=== PATIENT | female | born 1965 | race Caucasian/White ===

== ENCOUNTER 2023-03-04 14:22 | Inpatient (IN) | payer MEDICARE, SELFPAY ==
[2023-03-04] VITALS (15 sets, daily range): BP systolic 119–167; BP diastolic 72–104; PULSE 88–99; RESP 15–31; TEMP 36.8–36.9; O2SAT 90–98; BMI 40.8; BMI 43.2
--- NOTE | 2023-03-04 14:29 | XR_ITS ---
WS: [id number] Portable AP upright chest, 03/04/2023 Clinical Data: sob Comparison: None. Findings: No nodules or masses are seen. There is a patchy opacity in the right lower lobe which is probably an effusion along with some atelectasis and possible minimal pneumonia. The left lung is david ar. The heart is normal. The pulmonary vascularity is not increased. No pneumothorax is seen. Monitor leads are on the chest wall. The aortic arch and descending thoracic aorta show tortuosity. Impression: 1. Right lower lobe opacity which probably represents atelectasis, effusion and possible pneumonia. 2. Atherosclerosis.
--- NOTE | 2023-03-04 14:30 | ECG_ITS ---
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 Measurements Intervals [place] Rate: 94 P: 22 TX: 140 QRS: -7 QRSD: 105 T: 115 QT: 356 QTc: 447 Interpretive Statements SINUS RHYTHM ANTERIOR MYOCARDIAL INFARCTION , PROBABLY OLD [40+ ms Q WAVE AND/OR ST/T ABNORMALITY IN V3/V4] MODERATE T-WAVE ABNORMALITY, CONSIDER LATERAL ISCHEMIA [-0.1+ mV T-WAVE IN I/aVL/V5/V6] No previous ECG available for comparison Electronically Signed On 03-04-2023 18:33:22 HATCH BOSS by Scott Turner M.D. [id number]
--- NOTE | 2023-03-04 14:37 | ED_ITS ---
HPI - SOB/Dyspnea 2 General: Chief Complaint: Shortness of Breath/Dyspnea Stated Complaint: SOB, High Trop Time Seen by Provider: 03/04/23 14:25 Source: EMS Mode of arrival: EMS Limitations: no limitations History of Present Illness: HPI Narrative: 57-year-old female with a history of letty francis states she has been having increasing shortness of breath over the last 2 weeks. She states she is also had a 20 pound weight gain no known history of CHF. She denies any chest pain denies any fevers denies any worsening proving factors. Patient also states she has had some swelling to her left lower extremity. 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 Associated symptoms: Deny abdominal pain, chest pain, fever(s), nausea or vomiting Review of Systems 2 Const: Reports: change in weight; Denies: fever(s), chills, body aches or change in appetite Eyes: Denies: blurry vision or eye discomfort ENMT: Denies: throat pain or dental pain Card: Denies: chest pain Resp: Reports: dyspnea GI: Denies: abdominal pain, nausea, vomiting or diarrhea Musc: Reports: extremity swelling; Denies: neck pain or back pain Skin/Breast: Denies: rash Neuro: Denies: headache(s) Physical Exam 2 Const: COMMON NORMALS: patient oriented x3 HENMT: COMMON NORMALS: normocephalic and atraumatic HEAD & SCALP: n ormocephalic and atraumatic Eye: COMMON NORMALS: Equal, round and reactive pupils present and EOMs intact bilaterally PUPIL: Yes Equal, round and reactive pupils present Neck/C-Spine: COMMON NORMALS: full ROM and supple Chest: COMMONS NORMALS: normal inspection of the chest and normal palpation of entire chest wall Resp: COMMON NORMALS: normal respiratory effort, No retractions, No use of accessory muscles and clear to auscultation bilaterally AUSCULTATION: clear to auscultation bilaterally Cardio: COMMON NORMALS: regular rate, regular rhythm and No murmurs present (Cardio) RATE: regular rate RHYTHM: regular rhythm GI: COMMON NORMALS: Normal to inspection, nondistended, normoactive bowel sounds present, Soft to palpation, non-tender and no masses PALPATION: Yes Soft to palpation Extremity: COMMON NORMALS: full ROM NARRATIVE EXTREMITY EXAM: Swelling noted to left lower extremity Neuro: COMMON NORMALS: patient oriented x3, moves all extremities and no focal motor deficits Psych: COMMON NORMALS: mental status grossly normal, Normal thought process present and cooperative THOUGHT PROCESS: Normal thought process present Skin: COMMON NORMALS: no rashes or lesions noted and no wounds GENERAL SKIN EXAM: no rashes or lesions noted Course 2 Vital Signs: Vital signs: Vital Signs Temperature 98.3 F 03/04/23 14:27 Pulse Rate 89 03/04/23 16:16 Respiratory Rate 20 H 03/04/23 16:16 Blood Pressure 148/88 03/04/23 16:16 Pulse Oximetry 95 03/04/23 16:16 Oxygen Delivery Me thod Nasal Cannula 03/04/23 16:16 Oxygen Flow Rate 2 03/04/23 16:16 MDM - SOB/Dyspnea Medical Decision Making Patient presents here with shortness of breath likely new onset CHF she has had leg swelling along with weight gain her BNP here was elevated she had elevated troponin as well do not have a baseline that could be chronic she is not having any chest pain here we will trend her troponin will give her Lasix spoke to hospitalist will admit. Medical Records I reviewed the patient's medical records. Lab Data I reviewed the patient's lab results. 03/04/23 14:54 03/04/23 14:54 Labs/Radiology: Laboratory Results WBC 8.90 10^3/uL (3.29-11.43) 03/04/23 14:54 RBC 4.22 10^6/uL (3.85-5.65) 03/04/23 14:54 Hgb 12.10 g/dL (11.27-16.99) 03/04/23 14:54 Hct 39.1 % (36-47) 03/04/23 14:54 MCV 92.7 fl (85-98) 03/04/23 14:54 MCH 28.7 pg (27-33) 03/04/23 14:54 MCHC 30.9 g/dL (30-55) 03/04/23 14:54 RDW 15.8 % (12.1-15.1) H 03/04/23 14:54 Plt Count 226 10^3/cmm (157-399) 03/04/23 14:54 MPV 10.2 fL (7.4-10.4) 03/04/23 14:54 Neut % (Auto) 65.0 % 03/04/23 14:54 Lymph % (Auto) 24.8 % 03/04/23 14:54 [place] % (Auto) 5.5 % 03/04/23 14:54 Eos % (Auto) 3.4 % 03/04/23 14:54 Baso % (Auto) 0.4 % 03/04/23 14:54 Neut # (Auto) 5.78 10^3/uL (1.8-7.7) 03/04/23 14:54 Lymph # (Auto) 2.2 10^3/uL (0.8-4.8) 03/04/23 14:54 [place] # (Auto) 0.5 10^3/uL (0.2-0.9) 03/04/23 14:54 Eos # (Auto) 0.3 10^3/uL (0.0-0.8) 03/04/23 14:54 Baso # (Auto) 0.0 10^3/uL (0.0-0.1) 03/04/23 14:54 Nucleated RBC % (auto) 0 % 03/04/23 14:54 Nucleated RBCs # 0.0 /100WBC 03/04/23 14:54 PT 14.30 SECONDS (12.1-14.9) 03/04/23 14:54 INR 1.08 (0.8-1.2) 03/04/23 14:54 Sodium 138 mmol/L (136-145) 03/04/23 14:54 Potassium 4.6 mmol/L (3.5-5.1) 03/04/23 14:54 Chloride 103 mmol/L (98-107) 03/04/23 14:54 Carbon Dioxide 26 mmol/L (22-29) 03/04/23 14:54 Anion Gap 13.6 (5-19) 03/04/23 14:54 BUN 27 mg/dL (6-20) H 03/04/23 14:54 Creatinine 1.1 mg/dL (0.5-0.9) H 03/04/23 14:54 GFR Calculation 51.2 mL/min (90-130) L 03/04/23 14:54 Glucose 187 mg/dL (65-115) H 03/04/23 14:54 Calculated Osmolality 296 mOsm/kg (285-295) H 03/04/23 14:54 Calcium 8.7 mg/dL (8.5-10.5) 03/04/23 14:54 Total Bilirubin 0.2 mg/dL (0.15-1.2) 03/04/23 14:54 AST 12 U/L (0-32) 03/04/23 14:54 ALT < 5 U/L (0-33) 03/04/23 14:54 Alkaline Phosphatase 141 U/L (35-105) H 03/04/23 14:54 Troponin T Baseline 164 ng/L (0-10) H* 03/04/23 14:54 NT-Pro-B Natriuret Pep 6093 pg/mL (0-125) H 03/04/23 14:54 Total Protein 6.8 g/dL (6.6-8.7) 03/04/23 14:54 Albumin 3.2 g/dL (3.5-5.2) L 03/04/23 14:54 Globulin 3.6 g/dL (1.3-4.6) 03/04/23 14:54 All radiology interpretation(s) finalized by discharge EKG Data EKG 1: I personally reviewed and interpreted this EKG as follows: EKG Interpretation Date: 03/04/23 EKG interpretation time: 14:45 Interpretation: nsr hr [address] elevation qrs 105 qtc 408 Discharge Plan Discharge Patient Disposition: Admitted As Inpatient Clinical Impression: Acute respiratory failure with hypoxia, CHF (congestive heart failure) Condition: Stable Prescriptions: No Action buspirone 5 mg tablet 5 mg PO BID gabapentin 600 mg tablet 1,800 mg PO BID citalopram 40 mg tablet 40 mg PO DAILY metformin 1,000 mg tablet 1,000 mg PO BID nitroglycerin 0.4 mg tablet, sublingual See Rx Instructions .ROUTE .COMPLEX Rx Instructions: GIVE 0.4MG SUBLINGUALLY EVERY 5 MINUTES NEEDED FOR CHEST PAIN. DO NOT GIVE MORE THAN 3 TIMES PER EPISODE. pravastatin 20 mg tablet 20 mg PO BEDTIME cyclobenzaprine 5 mg tablet 5 mg PO TID PRN (Reason: Spasms) Referrals: Diaz Barragan MD [Physician] - Coding Level of Care Code ED Mangle Press Catcher for g Jerrod
[2023-03-04 15:11] LABS: Basophils % 0.4 %; Eosinophils # 0.3 10^3/uL (0.0-0.8); Eosinophils % 3.4 %; Hematocrit 39.1 % (36-47); Lymphocytes # 2.2 10^3/uL (0.8-4.8); Lymphocytes % 24.8 %; Mean Corpuscular HGB Conc 30.9 g/dL (30-55); Mean Corpuscular Hemoglobin 28.7 pg (27-33); Mean Corpuscular Volume 92.7 fl (85-98); Mean Platelet Volume 10.2 fL (7.4-10.4); Monocytes # 0.5 10^3/uL (0.2-0.9); Monocytes % 5.5 %; Neutrophils # 5.78 10^3/uL (1.8-7.7); Nucleated Red Blood Cells % 0 %; Platelet Count 226 10^3/cmm (157-399); Red Blood Count 4.22 10^6/uL (3.85-5.65); Red Cell Distribution Width 15.8 % (12.1-15.1)
[2023-03-04 15:21] LABS: INR 1.08 (0.8-1.2)
[2023-03-04 15:37] LABS: Alanine Aminotransferase < 5 U/L (0-33); Albumin Level 3.2 g/dL (3.5-5.2); Alkaline Phosphatase 141 U/L (35-105); Anion Gap 13.6 (5-19); Aspartate Amino Transferase 12 U/L (0-32); Blood Urea Nitrogen 27 mg/dL (6-20); Calcium 8.7 mg/dL (8.5-10.5); Carbon Dioxide 26 mmol/L (22-29); Chloride 103 mmol/L (98-107); Globulin 3.6 g/dL (1.3-4.6); Glomerular Filtration Rate 51.2 mL/min (90-130); Glucose 187 mg/dL (65-115); NT Pro B Type Natriuretic Pept 6093 pg/mL (0-125); Osmolality Calculated 296 mOsm/kg (285-295); Potassium 4.6 mmol/L (3.5-5.1); Sodium 138 mmol/L (136-145); Total Bilirubin 0.2 mg/dL (0.15-1.2); Total Protein 6.8 g/dL (6.6-8.7)
[2023-03-04 15:38] LABS: Troponin(5th) Baseline 164 ng/L (0-10)
--- NOTE | 2023-03-04 15:53 | ECG_ITS ---
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 Measurements Intervals [place] Rate: 95 P: 7 NV: 135 QRS: -4 QRSD: 105 T: 91 QT: 370 QTc: 467 Interpretive Statements SINUS RHYTHM ANTERIOR MYOCARDIAL INFARCTION , PROBABLY OLD [40+ ms Q WAVE AND/OR ST/T ABNORMALITY IN V3/V4] Compared to ECG 03/04/2023 14:45:18 T-wave abnormality no longer present Possible ischemia no longer present Myocardial infarct finding still present Electronically Signed On 03-04-2023 18:34:30 ACCOUNTING PROFESSIONAL by Scott Turner M.D. [id number]
[2023-03-04] MEDS: FUROsemide 10 mg/mL SDV 10mL 60 MG IVP (16:20)
--- NOTE | 2023-03-04 17:18 | P.HP_ITS ---
Providers/Chief Complaint 2 Admitting Physician: Bryan Loco MD Primary Care Provider: Norman Santizo Chief Complaint: SOB, High Trop History of Present Illness Laurel Michael is a 57 year old female with a past medical history of insulin- dependent type 2 diabetes mellitus, peripheral vascular disease, status post intervention by Dr. stokes in 2018, active smoker, right below-knee amputation, left transmetatarsal amputation, who presents [facility] due to chest, discomfort, shortness of breath, left lower extremity swelling. Patient tells me that for the last few days she has been less ambulatory, she has been feeling increasingly short of breath she cannot sleep in bed, she has to sleep in her wheelchair due to orthopnea and paroxysmal nocturnal dyspnea, she is also developed left leg swelling, she has had calf tenderness, she does report that she developed blisters on her left lower extremities that are fluid-filled blisters that tend to rupture, she feels short of breath at rest now, currently she is on 2 L she denies using oxygen at home she is a smoker, no history of COPD, she does report anterior chest discomfort she has had 3 episodes of chest pain this week, she tells me that it is like a pressure-like sensation in the anterior chest, no hemoptysis, no recent travel, no recent surgeries, Review of Systems 2 Const: Denies: fever(s) Card: Reports: chest pain Resp: Reports: dyspnea; Denies: non-productive cough GI: Reports: abdominal pain : Denies: flank pain Neuro: Denies: headache(s) Medications/Allergies Home Medications Medication Instructions Recorded Confirmed Last Taken Type buspirone 5 mg tablet 5 mg PO BID 03/04/23 03/04/23 03/03/23 History citalopram 40 mg tablet 40 mg PO DAILY 03/04/23 03/04/23 03/03/23 History cyclobenzaprine 5 mg tablet 5 mg PO TID PRN Spasms 03/04/23 03/04/23 Unknown History gabapentin 600 mg tablet 1,800 mg PO BID 03/04/23 03/04/23 03/03/23 History metformin 1,000 mg tablet 1,000 mg PO BID 03/04/23 03/04/23 03/03/23 History nitroglycerin 0.4 mg sublingual See Rx Instructions .Route .COMPLEX 03/04/23 03/04/23 Unknown History tablet pravastatin 20 mg tablet 20 mg PO BEDTIME 03/04/23 03/04/23 03/03/23 History Allergies Allergy/AdvReac Type Severity Reaction Status Date / Time adhesive Allergy ALGY-Rash Verified 03/04/23 14:36 Sulfa (Sulfonamide Allergy ALGY-Anaphy Verified 03/04/23 14:36 Antibiotics) laxis PFSH Acute 2 PFSH: Medical History (Updated 03/04/23 @ 17:32 by Bryan Loco MD) Peripheral vascular disease Amputation above knee Above knee amputation of right lower extremity History of right above knee amputation Type 2 diabetes mellitus Surgical History (Updated 03/04/23 @ 17:21 by Bryan Loco MD) History of amputation Family History (Updated 03/04/23 @ 17:21 by Bryan Loco MD) Father CAD (coronary artery disease) Cardiomyopathy Social History (Updated 03/04/23 @ 17:21 by Bryan Loco MD) Smoking and tobacco/nicotine status: current some day tobacco/nicotine user Alcohol intake: never Substance/Drug Use: never Vitals/I&O/Wt Last Vital Signs Temp 98.3 F 03/04/23 14:27 Pulse 96 03/04/23 17:05 Resp 23 H 03/04/23 17:05 BP 167/87 03/04/23 17:05 Pulse Ox 96 03/04/23 17:05 O2 Del Method Nasal Cannula 03/04/23 17:05 O2 Flow Rate 2 03/04/23 17:05 Weight last 48 hrs Weight 114.759 kg Physical Exam 2 Const: COMMON NORMALS: no acute distress and patient oriented x3 HENMT: COMMON NORMALS: normocephalic HEAD & SCALP: normocephalic Eye: COMMON NORMALS: Equal, round and reactive pupils present and EOMs intact bilaterally Neck/C-Spine: COMMON NORMALS: no JVD Lymph: LYMPHATIC: no lymphadenopathy noted Resp: COMMON NORMALS: normal respiratory effort, No retractions and No use of accessory muscles AUSCULTATION: crackles and rales Cardio: COMMON NORMALS: regular rate, regular rhythm, S1 normal heart sound present and S2 normal heart sound present RATE: regular rate RHYTHM: r egular rhythm HEART SOUNDS: S1 normal heart sound present and S2 normal heart sound present GI: COMMON NORMALS: Normal to inspection, nondistended, normoactive bowel sounds present, Soft to palpation and non-tender Extremity: NARRATIVE EXTREMITY EXAM: Right above-knee amputation, ? Left transmetatarsal amputation, ? Left calf erythematous, swollen, 1+ pitting edema Neuro: COMMON NORMALS: patient oriented x3, CN's II-XII intact bilaterally, moves all extremities and no focal motor deficits Psych: COMMON NORMALS: mental status grossly normal Data 03/04/23 14:54 03/04/23 14:54 A&P Assessment and plan (1) Acute hypoxemic respiratory failure: (2) NSTEMI (non-ST elevated myocardial infarction): (3) Systolic CHF: (4) Pleural effusion, right: (5) Left leg swelling: (6) Chest pain: (7) Obesity: Plan Acute hypoxic respiratory failure ? Likely secondary to systolic CHF, ? Cannot order CT angiogram of the chest to rule out pulmonary embolism, as patient cannot lie flat, D-dimer ordered, venous ultrasound ordered ? Plan ? Fluid restrictions of 1000 cc, ? Place Zacarias catheter, Monitor urine output, ? Lasix 40 IV twice daily, ? On heparin drip, ? Pro-Brian, CRP, respiratory viral panel, ordered ABG, sputum cultures, blood cultures NSTEMI, with complaints of chest pain ? Cardiac risk factors include complaints of chest discomfort, ? Peripheral vascular disease, ? Poorly controlled type 2 diabetes mellitus -Concerns for type I NSTEMI versus type II ? Plan ? Serial EKGs, start troponins, telemetry monitoring, ? Aspirin, ? Statin?beta-crow, ? Heparin drip?cardiology consulted, ? Cardiac echo Systolic CHF ? As above, next Right pleural effusion, ? Will consider ultrasound thoracocentesis, Left leg swelling, ? Multifactorial from CHF, concern for DVT, ? Ultrasound for DVT Type 2 diabetes mellitus, low-dose sliding scale, ? Right below-knee amputation, left TMA Full code chronic/heparin drip for DVT prophylaxis Attestations 2 Medical Necessity Statement*: Patient requires hospitalization, inpatient, greater than 2 midnights, for NSTEMI, systolic CHF exacerbation, acute hypoxic respiratory failure, right pleural effusion, Diagnoses Acute hypoxemic respiratory failure J96.01 NSTEMI (non-ST elevated myocardial infarction) I21.4 Systolic CHF I50.20 Pleural effusion, right J90 Left leg swelling M79.89 Chest pain R07.9 Obesity E66.9
--- NOTE | 2023-03-04 17:18 | USCV_ITS ---
Laurel Michael Age: 57 Gender: F : 1965 Exam Date: 03/04/2023 21:15 Ordering Phys: Bryan Loco MD Technologist: RUTH [place]am [place] [facility] [place]ication: profoundly erythematous and edematous LLE. Patient is s/p RIGHT AKA. HISTORY: profoundly erythematous and edematous LLE. Patient is s/p RIGHT AKA. PROCEDURES: Venous duplex imaging was performed in only the left lower extremity. The following venous structures were evaluated: common femoral vein, profunda vein, proximal portion of the greater saphenous vein, superficial femoral vein, and the popliteal vein. In addition, the posterior tibial veins were evaluated. Serial compression, augmentation maneuvers, and spectral Doppler flow evaluation were performed, which were normal. FINDINGS: Normal 2-D Doppler and augmentation and compressibility throughout the lower extremity venous structures. Additional imaging through the proximal calf veins also reveals no thrombus. Limited evaluation of the greater saphenous vein is patent with no thrombus. CONCLUSIONS No DVT left lower extremity. There is subcutaneous left lower extremity edema noted. Dr. Kait Strickland DO (Electronically Signed) Final Date: 05 March 2023 07:58 S
[2023-03-04 17:43] LABS: ABG PCO2 51.1 mmHg (35-45); ABG PH Result 7.37 (7.35-7.45); Arterial Blood Gas Hematocrit 38.4 % (37-47); Base Excess ABG 3.4 mmol/L (-2.0-2.0); Blood Gas Allen Test Pos; Blood Gas Operator Identificat CAK; Blood Gas Sample Site Brachial, right; Blood Gas Sample Type Arterial; HCO3 ABG 29.6 mmol/L (22-26); Oxygen Device NC; PO2 ABG 86.9 mmHg (80.0-100.0); PO2 FiO2 Ratio Arterial Blood 0
[2023-03-04 17:51] LABS: D Dimer 1.78 ug/mLFEU (0-0.59)
[2023-03-04 17:56] LABS: Lactic Sepsis W/Reflex 1.7 mmol/L (0.5-2.2)
[2023-03-04 17:58] LABS: Troponin 5 2HR Delta 1.4 ABS# (0-10)
--- NOTE | 2023-03-04 18:00 | P.CONIM_ITS ---
Providers/Reason For Consult 2 Consulting Physician/Specialty*: SARWAT Echevarria MD/cardiology Reason for Consult*: Patient with elevated troponin I and congestive heart failure Requesting Physician: Dr. Loco Attending Physician: Bryan Loco MD Primary Care Provider: Norman Santizo History of Present Illness History of Present Illness Laurel Michael is a 57 year old female with a history of longstanding diabetes, hypertension and dyslipidemia he is presenting with progressive shortness of breath over the last 1 week. She was found to have elevated troponin T and BNP. Cardiology consult is requested for further cardiac evaluation recommendations This patient apparently has been in her baseline state of health up until a week ago when she started having tight feeling in the chest and shortness of breath. The symptoms have been progressively getting worse. She has no fever, chills or cough. She was finding it difficult to lie flat in the bed. She may have gained around 40 pounds over the last 1 month. She been is noticing swelling of the left lower extremity for the last couple of weeks. She also been noticing blisters with some weeping in the left leg. Patient has a history of distal aortic occlusion, status post stent placement in [address] Webster in [place]. She has a history of uncontrolled diabetes with a diabetic neuropathy. She had a transmetatarsal amputation of the left foot 4 years ago in [place]. She had a bony amputation of the right leg in August of last year in [place] for diabetic complication? Osteomyelitis. The details of these are not available since most of these interventions were done in [facility]. Patient never had any chest pain or cardiac complications. Whether she had a coronary angiogram or not normal at this point. She has abdominal aortogram with runoff by Dr. Atkinson in 2019. Details are as mentioned below. Subsequent to this, she was referred for possible aorto iliac bypass surgery to Dr. Webster. Performed the percutaneous intervention, as per the patient. The shortness of breath has been gradually getting worse. She was finding it difficult to move around and also had difficulty lying in bed. No abdominal pain or dysuria. She was developing some abdominal wall edema and blisters in the left lower extremity. No fever or chills. Patient has a history of smoking abuse, 1 pack a day for more than 20 years. For the last 5 years or so, she been cutting back to half pack a day. No alcohol abuse. Her father had congestive heart failure in his 60s. No other relevant family history. Review of Systems 2 Narrative: CONSTITUTIONAL: No fever or chills. [] EYES: No blurring of vision or other visual disturbances lately. [] ENT: No hoarseness of voice, auditory disturbances or sore throat. [] CARDIOVASCULAR: As mentioned above. [] RESPIRATORY: Shortness of breath as mentioned above GASTROINTESTINAL: No hematemesis or melena. [] GENITOURINARY: No dysuria or hematuria. [] INTEGUMENTARY: No skin rashes or history of skin cancer. [] NEURO: No transient ischemic attacks or amaurosis. [] PSYCHIATRIC: No history of psychosis or major depression. [] HEMATOLOGIC: No bleeding disorders or significant anemia. [] ENDOCRINE: No history of polyuria or polydipsia. [] MUSCULOSKELETAL: No recent joint pain or swelling. [] ALLERGY/IMMUNOLOGY: As mentioned above. [] Medications/Allergies Home Medications Medication Instructions Recorded Confirmed Last Taken Type buspirone 5 mg tablet 5 mg PO BID 03/04/23 03/04/23 03/03/23 History citalopram 40 mg tablet 40 mg PO DAILY 03/04/23 03/04/23 03/03/23 History cyclobenzaprine 5 mg tablet 5 mg PO TID PRN Spasms 03/04/23 03/04/23 Unknown History gabapentin 600 mg tablet 1,800 mg PO BID 03/04/23 03/04/23 03/03/23 History metformin 1,000 mg tablet 1,000 mg PO BID 03/04/23 03/04/23 03/03/23 History nitroglycerin 0.4 mg sublingual See Rx Instructions .Route .COMPLEX 03/04/23 03/04/23 Unknown History tablet pravastatin 20 mg tablet 20 mg PO BEDTIME 03/04/23 03/04/23 03/03/23 History Allergies Allergy/AdvReac Type Severity Reaction Status Date / Time adhesive Allergy ALGY-Rash Verified 03/04/23 14:36 Sulfa (Sulfonamide Allergy ALGY-Anaphy Verified 03/04/23 14:36 Antibiotics) laxis PFSH Acute 2 PFSH: Medical History (Updated 03/04/23 @ 18:35 by Oscar Echevarria MD) Peripheral vascular disease Amputation above knee Above knee amputation of right lower extremity History of right above knee amputation Type 2 diabetes mellitus Surgical History (Updated 03/04/23 @ 17:21 by Bryan Loco MD) History of amputation Family History (Updated 03/04/23 @ 17:21 by Bryan Loco MD) Father CAD (coronary artery disease) Cardiomyopathy Social History (Updated 03/04/23 @ 17:21 by Bryan Loco MD) Smoking and tobacco/nicotine status: current some day tobacco/nicotine user Alcohol intake: never Substance/Drug Use: never Vitals/I&O/Wt Last Vital Signs Temp 98.3 F 03/04/23 14:27 Pulse 94 03/04/23 17:36 Resp 20 H 03/04/23 17:36 BP 149/93 03/04/23 17:36 Pulse Ox 94 03/04/23 17:36 O2 Del Method Nasal Cannula 03/04/23 17:36 O2 Flow Rate 2 03/04/23 17:36 Weight last 48 hrs Weight 253 lb Physical Exam 2 Narrative: GENERAL: The patient is alert and oriented times three. Not in any acute distress. Morbidly obese NECK: Trachea appears to be central. No masses noted. No JVD or thyromegaly appreciated. RESPIRATORY: Chest is symmetrical. No intercostals muscle retraction or any accessory muscle activation. There is no chest wall tenderness. Breath sounds are heard bilaterally. Diminished intensity of breath on the left base. No rales or rhonchi heard. No evidence of any consolidation. BREASTS: Deferred. HEART: The heart sounds are normal. No S3 or S4. Short systolic murmur in the lower sternal border. No diastolic murmurs no pericardial rub ABDOMEN: No vessel pulsations or distention. No tenderness. No organomegaly appreciated. Bowel sounds are normally heard. : Deferred. RECTAL: Deferred. LYMPHATIC: No lymphadenopathy noted in the neck. EXTREMITIES: Above-knee amputation on the right side. Transmetatarsal amputation on the left side. There is 2+ edema of the left lower extremity. He will discuss superficial skin lesions and some weeping ulcers which are bandaged. Has some diffuse erythema of the left lower extremity. MUSCULOSKELETAL: No acute joint deformities or swelling SKIN: There are no significant rashes or ecchymosis NEUROPSYCHIATRIC: The patient is alert and oriented x3. Appears to be in a good mood. No tremors or rigidity noted. Data 03/04/23 14:54 03/04/23 14:54 Other Labs: Laboratory Last Values WBC 8.90 10^3/uL (3.29-11.43) 03/04/23 14:54 RBC 4.22 10^6/uL (3.85-5.65) 03/04/23 14:54 Hgb 12.10 g/dL (11.27-16.99) 03/04/23 14:54 Hct 39.1 % (36-47) 03/04/23 14:54 MCV 92.7 fl (85-98) 03/04/23 14:54 MCH 28.7 pg (27-33) 03/04/23 14:54 MCHC 30.9 g/dL (30-55) 03/04/23 14:54 RDW 15.8 % (12.1-15.1) H 03/04/23 14:54 Plt Count 226 10^3/cmm (157-399) 03/04/23 14:54 MPV 10.2 fL (7.4-10.4) 03/04/23 14:54 Neut % (Auto) 65.0 % 03/04/23 14:54 Lymph % (Auto) 24.8 % 03/04/23 14:54 Blanco % (Auto) 5.5 % 03/04/23 14:54 Eos % (Auto) 3.4 % 03/04/23 14:54 Baso % (Auto) 0.4 % 03/04/23 14:54 Neut # (Auto) 5.78 10^3/uL (1.8-7.7) 03/04/23 14:54 Lymph # (Auto) 2.2 10^3/uL (0.8-4.8) 03/04/23 14:54 Blanco # (Auto) 0.5 10^3/uL (0.2-0.9) 03/04/23 14:54 Eos # (Auto) 0.3 10^3/uL (0.0-0.8) 03/04/23 14:54 Baso # (Auto) 0.0 10^3/uL (0.0-0.1) 03/04/23 14:54 Nucleated RBC % (auto) 0 % 03/04/23 14:54 Nucleated RBCs # 0.0 /100WBC 03/04/23 14:54 PT 14.30 SECONDS (12.1-14.9) 03/04/23 14:54 INR 1.08 (0.8-1.2) 03/04/23 14:54 D-Dimer 1.78 ug/mLFEU (0-0.59) H 03/04/23 14:54 Specimen Type Arterial 03/04/23 17:32 Sample Site Brachial, right 03/04/23 17:32 ABG pH 7.37 (7.35-7.45) 03/04/23 17:32 ABG pCO2 51.1 mmHg (35-45) H 03/04/23 17:32 ABG pO2 86.9 mmHg (80.0-100.0) 03/04/23 17:32 ABG PO2/FiO2 Ratio 0 03/04/23 17:32 ABG HCO3 29.6 mmol/L (22-26) H 03/04/23 17:32 ABG Base Excess 3.4 mmol/L (-2.0-2.0) H 03/04/23 17:32 [place]air Test Pos 03/04/23 17:32 Hematocrit 38.4 % (37-47) 03/04/23 17:32 O2 Delivery Device Nc 03/04/23 17:32 O2 Liters/Min 2.0 % 03/04/23 17:32 FiO2 28.0 % 03/04/23 17:32 Bark Press Operator ID Cak 03/04/23 17:32 Sodium 138 mmol/L (136-145) 03/04/23 14:54 Potassium 4.6 mmol/L (3.5-5.1) 03/04/23 14:54 Chloride 103 mmol/L (98-107) 03/04/23 14:54 Carbon Dioxide 26 mmol/L (22-29) 03/04/23 14:54 Anion Gap 13.6 (5-19) 03/04/23 14:54 BUN 27 mg/dL (6-20) H 03/04/23 14:54 Creatinine 1.1 mg/dL (0.5-0.9) H 03/04/23 14:54 GFR Calculation 51.2 mL/min (90-130) L 03/04/23 14:54 Glucose 187 mg/dL (65-115) H 03/04/23 14:54 Calculated Osmolality 296 mOsm/kg (285-295) H 03/04/23 14:54 Lactic Acid 1.7 mmol/L (0.5-2.2) 03/04/23 14:54 Calcium 8.7 mg/dL (8.5-10.5) 03/04/23 14:54 Total Bilirubin 0.2 mg/dL (0.15-1.2) 03/04/23 14:54 AST 12 U/L (0-32) 03/04/23 14:54 ALT < 5 U/L (0-33) 03/04/23 14:54 Alkaline Phosphatase 141 U/L (35-105) H 03/04/23 14:54 Troponin T Baseline 164 ng/L (0-10) H* 03/04/23 14:54 Delta Troponin T 1.4 ABS# (0-10) 03/04/23 17:14 NT-Pro-B Natriuret Pep 6093 pg/mL (0-125) H 03/04/23 14:54 Total Protein 6.8 g/dL (6.6-8.7) 03/04/23 14:54 Albumin 3.2 g/dL (3.5-5.2) L 03/04/23 14:54 Globulin 3.6 g/dL (1.3-4.6) 03/04/23 14:54 Other data: EKG from today, 03/04/2023 Normal sinus rhythm with poor R wave progression. Features suggestive of old anterior wall myocardial infarction. Nonspecific T wave changes. Chest x-ray from 03/04/2023 Mild cardiomegaly.Possible small right-sided pleural Effusion. Prominent pulmonary venous markings Peripheral angiogram on 05/23/2018 Abdominal Diagnostic Findings Patient has claudication consistent with Leriche syndrome. CTA suggested a near occlusion of the distal abdominal aorta. She does have ulcers on 1 foot. She is Harlan grade II, category 5; Perico stage IV. The procedure was performed from the right radial artery due to her massive obesity. There is minor diffuse irregularities of the aorta until just prior to the bifurcation but there is an eccentric, ulcerated 70-80% stenosis. Lower Extremity Diagnostic Findings Both common iliac arteries are widely patent, but have mild diffuse luminal irregularities. The right internal iliac artery is normal aside from luminal irregularities. The left internal iliac is patent with there is a 80% ostial stenosis. The external iliac arteries on both sides are essentially normal as are the common femoral arteries. The proximal portion of the superficial femoral arteries and the profunda femoris arteries are normal. Conclusions Significant ulcerated stenosis of the distal abdominal aorta without sick if he can disease of the pelvic and femoral vessels. No complications occurred during the procedure and required no further treatment. Recommendations Aortobifemoral bypass. A&P Assessment and plan (1) Elevated troponin: Possibility of a non-ST relation myocardial infarction cannot be excluded. In view of the patient's multiple risk factors, this is a strong consideration. Her symptoms are nonspecific. (2) CHF (congestive heart failure): Etiology of the heart failure is not clear. Coronary ischemia causing LV dysfunction and heart failure versus left-ventricular diastolic dysfunction are considerations. For further evaluation, an echocardiogram would be helpful. Patient may be treated with IV diuretics and other symptomatic measures. Qualifiers: Heart failure chronicity: unspecified Heart failure type: unspecified Qualified Code(s): I50.9 - Heart failure, unspecified (3) Chest pain: Patient is complaining of tight feeling in the chest. This could be related to the congestive heart failure. The EKG changes are nonspecific. Coronary ischemia cannot be excluded. Qualifiers: Chest pain type: unspecified Qualified Code(s): R07.9 - Chest pain, unspecified (4) Aortic disease: Patient was found to have severe stenosis of the distal aorta with ulceration by aortogram in 2019. Status post percutaneous intervention? Stent graft. Details are not available to (5) Type 2 diabetes mellitus: Patient has uncontrolled diabetes. The most recent hemoglobin A1c was 8.2. Her diabetes need to be aggressively managed. Qualifiers: Diabetes mellitus terminal makeup operator insulin use: with intermediate use Diabetes mellitus complication status: with neurologic complications Diabetes mellitus complication detail: with polyneuropathy Qualified Code(s): E11.42 - Type 2 diabetes mellitus with diabetic polyneuropathy; Z79.4 - [facility] (current) use of insulin (6) Chronic kidney disease (CKD): Most likely the patient may have diabetic kidney disease. This needs to be closely monitored. Qualifiers: Chronic kidney disease stage: stage 2 (mild) Qualified Code(s): N18.2 - Chronic kidney disease, stage 2 (mild) Plan After the appropriate treatment of heart failure, we may consider doing a Myocardial perfusion imaging to further evaluate the coronary status and then decide on further management. I will be reviewing the echocardiogram. Based on the results of the above tests and the patient's clinical progress, further recommendations will be made. T thank you for the opportunity to evaluate this patient and make these recommendations Consult Attestations 2 Medical Necessity Statement: Patient requires continued hospital stay for close monitoring and further management Coding Level of Care Code 93209 Diagnoses Elevated troponin R79.89 Congestive heart failure, unspecified HF chronicity, unspecified heart failure type I50.9 Heart failure chronicity: unspecified Heart failure type: unspecified Chest pain, unspecified type R07.9 Chest pain type: unspecified Aortic disease I77.9 Type 2 diabetes mellitus with diabetic polyneuropathy, with long-term current use of insulin E11.42; Z79.4 Diabetes mellitus intermediate insulin use: with terminal makeup operator use Diabetes mellitus complication status: with neurologic complications Diabetes mellitus complication detail: with polyneuropathy Stage 2 chronic kidney disease N18.2 Chronic kidney disease stage: stage 2 (mild) Time Spent (min) 70
[2023-03-04 18:04] LABS: Troponin 5 2HR 165.4 ng/L (0-10)
--- NOTE | 2023-03-04 20:30 | ECG_ITS ---
[facility] Test Date: 2023-03-04 Pat Name: Laurel Michael Department: Room: 111 Gender: Female [employer] Grade Teacher: : 1965 Requested By: Freeman Mendez Order Number: [id number] Sienna MD: Scott Turner M.D. Measurements Intervals [place] Rate: 100 P: 16 AL: 130 QRS: 10 QRSD: 108 T: 67 QT: 353 QTc: 457 Interpretive Statements SINUS TACHYCARDIA ANTERIOR MYOCARDIAL INFARCTION , OF INDETERMINATE AGE [40+ ms Q WAVE AND/OR ST/T ABNORMALITY IN V3/V4] INTERPRETATION BASED ON A DEFAULT AGE OF 40 YEARS Compared to ECG 03/04/2023 15:53:47 Sinus rhythm no longer present Myocardial infarct finding still present Electronically Signed On 03-05-2023 7:39:58 NURSE INFORMATICS EDUCATOR by Scott Turner M.D. [email or web address]
[2023-03-04] MEDS: FUROsemide 10 mg/mL SDV 4mL 40 MG IVP (21:01)
[2023-03-04] MEDS: pantoprazole 40 mg SDV IVP (21:01)
[2023-03-04] MEDS: aspirin 81 mg EC Tablet PO (21:01)
[2023-03-04] MEDS: atorvastatin 40 mg Tablet PO (21:01)
[2023-03-04] MEDS: heparin 5,000 unit/mL INJ 1 mL IV (21:02)
[2023-03-04] MEDS: carvedilol 3.125 mg Tablet PO (21:02)
[2023-03-04] MEDS: heparin drip 25,000 UNIT/500 ML PREMIX 35 UNIT IV (21:11)
[2023-03-04 21:15] LABS: Add Urine Microscopic? YES; Bilirubin Urine Neg (Negative); Blood Urine Neg (Negative); Glucose Urine UA Norm (Normal); Ketones Urine Negative (Negative); Leukocyte Esterase Urine 2+ (Negative); Nitrate Urine Negative (Negative); Protein Urine Trace (Negative); Specific Gravity, Urine 1.005 (1.005-1.030); Urine Appearance Clear (CLEAR); Urine Color Light yellow (Yellow); Urobilinogen Urine Norm (Negative); pH Urine 5 (5-7)
[2023-03-04 21:16] LABS: Add Urine Culture? Yes; Bacteria Urine 2+ /hpf; RBC Urine 0-4 /hpf (0-2); Squamous Epithelial Cell Urine 0-4 /hpf (0-5); WBC Urine 15-25 /hpf (0-5)
[2023-03-04 21:17] LABS: D Dimer 1.83 ug/mLFEU (0-0.59)
[2023-03-04 21:24] LABS: Estmated Average Glucose 189; Hemoglobin A1C 8.2 % (4.0-6.0)
[2023-03-04 21:32] LABS: Thyroid Stimulating Hormone 3.01 uIU/mL (0.27-4.20)
[2023-03-04 21:38] LABS: Glucose Point of Care 207 mg/dL (70-110)
[2023-03-04 21:43] LABS: C Reactive Protein 16.6 mg/L (0.0-4.9); Chol HDL Ratio 3.77 mg/dL (0.0-4.40); Cholesterol 147 mg/dL (0-200); HDL Cholesterol 39 mg/dL (60-100); LDL Cholesterol Calculated 69 mg/dL (50-129); LDL HDL Ratio 1.77 RATIO (0.00-3.22); Magnesium 1.9 mg/dL (1.7-2.3); Triglycerides 196 mg/dL (0-150)
[2023-03-04 22:23] LABS: Adenovirus Not Detected (NOT DETECT); Chlamydia Pneumoniae Not Detected (NOT DETECT); Coronavirus 229E,HKU1,NL63,OC4 Not Detected (NOT DETECT); Human Metapneumovirus Not Detected (NOT DETECT); Human Rhinovirus/Enterovirus Not Detected (NOT DETECT); Influenza A Not Detected (NOT DETECT); Influenza A H1 Not Detected (NOT DETECT); Influenza A H1-2009 Not Detected (NOT DETECT); Influenza A H3 Not Detected (NOT DETECT); Influenza B Not Detected (NOT DETECT); Mycoplasma Pneumoniae Not Detected (NOT DETECT); Parainfluenza Virus Type 1 Not Detected (NOT DETECT); Parainfluenza Virus Type 2 Not Detected (NOT DETECT); Parainfluenza Virus Type 3 Not Detected (NOT DETECT); Parainfluenza Virus Type 4 Not Detected (NOT DETECT); Respiratory Syncytial Virus A Not Detected (NOT DETECT); Respiratory Syncytial Virus B Not Detected (NOT DETECT); SARS-COV-2 Not Detected (NOT DETECT)
[2023-03-04] MEDS: ALPRAZolam 0.5 mg Tablet PO (22:49)
[2023-03-05] VITALS (11 sets, daily range): BP systolic 120–152; BP diastolic 74–86; PULSE 78–99; RESP 15–18; TEMP 36.4–37.2; O2SAT 95–97
[2023-03-05 03:09] LABS: Basophils # 0.1 10^3/uL (0.0-0.1); Basophils % 0.6 %; Eosinophils # 0.3 10^3/uL (0.0-0.8); Eosinophils % 3.1 %; Hematocrit 37.4 % (36-47); Lymphocytes # 2.5 10^3/uL (0.8-4.8); Lymphocytes % 26.6 %; Mean Corpuscular Hemoglobin 28.9 pg (27-33); Mean Corpuscular Volume 93.3 fl (85-98); Mean Platelet Volume 10.4 fL (7.4-10.4); Monocytes # 0.6 10^3/uL (0.2-0.9); Monocytes % 6.5 %; Neutrophils # 5.92 10^3/uL (1.8-7.7); Neutrophils % 62.6 %; Nucleated Red Blood Cells % 0 %; Platelet Count 211 10^3/cmm (157-399); Red Blood Count 4.01 10^6/uL (3.85-5.65); Red Cell Distribution Width 15.8 % (12.1-15.1); White Blood Count 9.45 10^3/uL (3.29-11.43)
[2023-03-05 03:28] LABS: Alanine Aminotransferase 6 U/L (0-33); Albumin Level 3.3 g/dL (3.5-5.2); Alkaline Phosphatase 140 U/L (35-105); Aspartate Amino Transferase 12 U/L (0-32); Blood Urea Nitrogen 29 mg/dL (6-20); Calcium 9.3 mg/dL (8.5-10.5); Carbon Dioxide 27 mmol/L (22-29); Chloride 102 mmol/L (98-107); Globulin 3.7 g/dL (1.3-4.6); Glomerular Filtration Rate 51.2 mL/min (90-130); Glucose 189 mg/dL (65-115); Osmolality Calculated 299 mOsm/kg (285-295); Phosphorus 4.1 mg/dL (2.5-4.5); Sodium 139 mmol/L (136-145); Total Bilirubin 0.2 mg/dL (0.15-1.2)
[2023-03-05 03:29] LABS: Partial Thromboplastin Time 36.9 SECONDS (23.9-36.7)
[2023-03-05] MEDS: heparin 5,000 unit/mL INJ 1 mL IV ×2 (03:38→18:58)
[2023-03-05 03:44] LABS: NT Pro B Type Natriuretic Pept 6824 pg/mL (0-125)
[2023-03-05 04:01] LABS: Anion Gap 14.7 (5-19); Potassium 4.7 mmol/L (3.5-5.1)
[2023-03-05 06:34] LABS: Glucose Point of Care 175 mg/dL (70-110)
[2023-03-05] MEDS: insulin lispro 100 unit/1 mL SUBCUT ×3 (07:47→17:36)
[2023-03-05] MEDS: gabapentin 300 mg Capsule 1800 MG PO ×2 (07:48→19:56)
[2023-03-05] MEDS: citalopram 20 mg Tablet 40 MG PO (07:48)
[2023-03-05] MEDS: carvedilol 3.125 mg Tablet PO ×2 (07:49→17:36)
[2023-03-05] MEDS: aspirin 81 mg EC Tablet PO (07:49)
--- NOTE | 2023-03-05 08:44 | PC.CHAP ---
Pastoral Care Encounter/Spiritual Assessment Type of Contact [] Declined sole molding machine operator visit [] Patient/Family/Request visit [] Outpatient visit [] Follow-up visit [] Physician referral [] Code/Alert [] Routine visit [] Staff referral [] Actively dying [x] Patient sleeping [] Family support [] [] Out of room [] Palliative care [] [] Receiving care in room [] Pre-surgical visit [] Trauma [] Long length of stay [] ICU visit [] Other: Relational/Emotional Strength [] Patient feels connected with others/family/visitors/staff [] Distress [] Loneliness/isolation [] Abandonment Spirituality of Patient [] Person of Mariah [] Attends [employer] of their Mariah [] Believes in Prayer [] Reads Bible or Hindu materials [] There are Spiritual issues to be addressed Senior Tax Analyst Interventions [] Prayer [] Active listening [] Non-anxious presence [] Spiritual/emotional support [] Crisis/trauma care [] Spiritual counseling [] Bereavement support [] Provided bereavement packet [] Provided Bible/devotional materials [] Provided toy/stuffed animal, coloring book to patient or family member [] Provided Communion [] Anointing/[place] [] Salvation [] Completed spiritual assessment [] Other: Impact on Illness or Injury [] Angry [] Fearful [] Anxious [] Often cries [] Exhaustion [] Unable to work [] Unable to attend methodist [] Unable to walk/stand [] Unable to read [] Unable to drive [] Unable to eat/drink [] Unable to sleep [] Unable to be with family [] Patient intubated [] Other: Summary Time spent with patient
[2023-03-05] MEDS: metOLazone 5 MG Tablet PO (08:47)
[2023-03-05] MEDS: albumin 12.5 GM/50 ML VIAL IV (08:48)
[2023-03-05 08:59] LABS: ABG PCO2 52.2 mmHg (35-45); ABG PH Result 7.39 (7.35-7.45); Alveolar-Arterial Oxygen Gradi 6.1 mmHg (5-10); Arterial Blood Gas Hematocrit 36.7 % (37-47); Base Excess ABG 5.1 mmol/L (-2.0-2.0); Blood Gas Allen Test Pos; Blood Gas Operator Identificat BROMA; Blood Gas Sample Site Radial, right; Blood Gas Sample Type Arterial; Carboxyhemoglobin 3.3 %THgb (0.4-20.1); HCO3 ABG 31.3 mmol/L (22-26); HGB O2 Sat 95.7 % (95-100); Ionized Calcium Level - ABG 1.2 mmol/L (1.1-1.4); Methemoglobin 0.5 % (0.4-1.5); Oxygen Device BIPAP; Oxygen Saturation ABG 99.4; PO2 FiO2 Ratio Arterial Blood 0; Potassium Level - ABG 4.2 mmol/L (3.5-5.0)
[2023-03-05] MEDS: FUROsemide 10 mg/mL SDV 4mL 40 MG IVP ×2 (09:03→21:10)
--- NOTE | 2023-03-05 09:03 | P.PN_ITS ---
Subjective 2 Subjective: Patient's mentation seems to be poor this morning. She was found to be retaining CO2. Currently she is on a BiPAP. Did not have any chest pain through the night. No significant arrhythmias were noted on the monitor. Because of the heavy artifacts, it is difficult to discern the rhythm. Medications: Medication Review Details: Current Medications Acetaminophen (Acetaminophen 325 Mg Tablet) 650 mg PO Q6H PRN PRN Reason: Mild/Mod Pain Or Temp >/= 101 Aspirin (Aspirin 81 Mg Ec Tablet) 81 mg PO DAILY [facility] Last Admin: 03/05/23 07:49 Dose: 81 mg Atorvastatin Calcium (Atorvastatin 40 Mg Tablet) 40 mg PO BEDTIME [facility] Last Admin: 03/04/23 21:01 Dose: 40 mg Carvedilol (Carvedilol 3.125 Mg Tablet) 3.125 mg PO BID [facility] Last Admin: 03/05/23 07:49 Dose: 3.125 mg Citalopram Hydrobromide (Citalopram 20 Mg Tablet) 40 mg PO DAILY [facility] Last Admin: 03/05/23 07:48 Dose: 40 mg Dextrose (Dextrose 50% Syringe 50 Ml) 25 ml IVP ONCE PRN; Protocol PRN Reason: hypoglycemia protocol Dextrose (Dextrose 50% Syringe 50 Ml) 50 ml IVP PRN PRN; Protocol PRN Reason: hypoglycemia protocol Furosemide (Furosemide 10 Mg/Ml Sdv 4ml) 40 mg IVP Q12H [facility] Last Admin: 03/05/23 09:03 Dose: 40 mg Gabapentin (Gabapentin 300 Mg Capsule) 1,800 mg PO BID [facility] Last Admin: 03/05/23 07:48 Dose: 1,800 mg Heparin Sodium (Porcine) (Heparin 5,000 Unit/Ml Inj 1 Ml) 0 unit IV PRN PRN; Protocol PRN Reason: Heparin weight-base protocol Last Admin: 03/05/23 03:38 Dose: 5,000 unit Dextrose (D5w) 500 mls @ 0 mls/hr IV ONCE PRN; Protocol PRN Reason: Adult Acute Hypoglycemia Prot Heparin Sodium/Sodium Chloride (Heparin Drip) 25,000 unit in 500 mls @ 0 mls/hr IV .Q0M [facility]; Protocol Last Titration: 03/05/23 03:39 Dose: 16.45 unit/kg/hr, 40 mls/hr Albumin Human (Albumin) 12.5 gm in 50 mls @ 60 mls/hr IV ONCE ONE Stop: 03/05/23 09:19 Last Admin: 03/05/23 08:48 Dose: 60 mls/hr Ceftriaxone Sodium 1,000 mg/ (Sodium Chloride) 50 mls @ 100 mls/hr IV Q24H [facility]; Protocol Vancomycin/PEG/NADA/Lysine/Water (Vancocin) 1,500 mg in 300 mls @ 200 mls/hr IV Q12H REN[facility] Insulin Human Lispro (Insulin Lispro 100 Unit/1 Ml) 0 unit SUBCUT TIDWM [facility]ENATO; Protocol Last Admin: 03/05/23 07:47 Dose: 2 unit Morphine Sulfate (Morphine 4 Mg/Ml Sdv 1 Ml) 2 mg IVP Q4H PRN PRN Reason: SEVERE PAIN Naloxone HCl (Naloxone 0.4 Mg/Ml Sdv) 0.1 mg IVP Q2M PRN PRN Reason: OPIATERV Ondansetron HCl (Ondansetron 2 Mg/Ml Sdv 2 Ml) 4 mg IVP Q8H PRN PRN Reason: vomiting, or N/V if npo Pantoprazole Sodium (Pantoprazole 40 Mg Sdv) 40 mg IVP Q24H [facility] Last Admin: 03/04/23 21:01 Dose: 40 mg Vitals/I&O/Wt Last Vital Signs Temp 97.7 F 03/05/23 08:00 Pulse 83 03/05/23 08:00 Resp 17 03/05/23 04:00 BP 143/81 03/05/23 08:00 Pulse Ox 96 03/05/23 08:00 O2 Del Method Nasal Cannula 03/05/23 08:00 O2 Flow Rate 2 03/04/23 22:03 FiO2 30 03/04/23 22:01 03/04/23 03/05/23 03/05/23 22:59 06:59 14:59 Intake Total 177.916 / 177.916 Output Total 1999 Balance -1822.084 / -1822.084 Weight last 48 hrs Weight 265 lb 14.4 oz Weight 268 lb Weight 253 lb Physical Exam 2 Narrative: GENERAL: The patient is alert and oriented times three. Not in any acute distress. HEENT: No significant pallor, icterus or lymphadenopathy.Oral cavity: There are no mucous membrane lesions. NECK: Trachea appears to be central. No masses noted. No JVD or thyromegaly appreciated. RESPIRATORY: Chest is symmetrical. No intercostals muscle retraction or any accessory muscle activation. There is no chest wall tenderness. Breath sounds are heard bilaterally. No rales or rhonchi heard. No evidence of any consolidation. BREASTS: Deferred. HEART: The heart sounds are normal. No S3 or S4. No significant murmurs. No pericardial rub ABDOMEN: No vessel pulsations or distention. No tenderness. No organomegaly appreciated. Bowel sounds are normally heard. : Deferred. RECTAL: Deferred. LYMPHATIC: No lymphadenopathy noted in the neck. EXTREMITIES: Diffuse erythema of the left lower extremity. 2+ edema present. The pulses difficult to palpate. Both the dorsalis pedis and posterior pulses are present with the Doppler. MUSCULOSKELETAL: No acute joint deformities or swelling SKIN: There are no significant rashes or ecchymosis NEUROPSYCHIATRIC: The patient is alert and oriented x3. Appears to be in a good mood. No tremors or rigidity noted. Urinary Catheter Management: Zacarias: Cath Placed During This Visit: yes Reason for Continuing Indwelling Catheter: Acute Urinary Retention or Obstruction Urinary Catheter Date of Insertion: 03/04/23 Urinary Catheter Time of Insertion: 20:31 Data 03/05/23 03:00 03/05/23 03:00 Other Labs: Laboratory Last Values WBC 9.45 10^3/uL (3.29-11.43) 03/05/23 03:00 RBC 4.01 10^6/uL (3.85-5.65) 03/05/23 03:00 Hgb 11.60 g/dL (11.27-16.99) 03/05/23 03:00 Hct 37.4 % (36-47) 03/05/23 03:00 MCV 93.3 fl (85-98) 03/05/23 03:00 MCH 28.9 pg (27-33) 03/05/23 03:00 MCHC 31.0 g/dL (30-55) 03/05/23 03:00 RDW 15.8 % (12.1-15.1) H 03/05/23 03:00 Plt Count 211 10^3/cmm (157-399) 03/05/23 03:00 MPV 10.4 fL (7.4-10.4) 03/05/23 03:00 Neut % (Auto) 62.6 % 03/05/23 03:00 Lymph % (Auto) 26.6 % 03/05/23 03:00 Grainger % (Auto) 6.5 % 03/05/23 03:00 Eos % (Auto) 3.1 % 03/05/23 03:00 Baso % (Auto) 0.6 % 03/05/23 03:00 Neut # (Auto) 5.92 10^3/uL (1.8-7.7) 03/05/23 03:00 Lymph # (Auto) 2.5 10^3/uL (0.8-4.8) 03/05/23 03:00 Grainger # (Auto) 0.6 10^3/uL (0.2-0.9) 03/05/23 03:00 Eos # (Auto) 0.3 10^3/uL (0.0-0.8) 03/05/23 03:00 Baso # (Auto) 0.1 10^3/uL (0.0-0.1) 03/05/23 03:00 Nucleated RBC % (auto) 0 % 03/05/23 03:00 Nucleated RBCs # 0.0 /100WBC 03/05/23 03:00 PT 14.30 SECONDS (12.1-14.9) 03/04/23 14:54 INR 1.08 (0.8-1.2) 03/04/23 14:54 APTT 36.9 SECONDS (23.9-36.7) H 03/05/23 03:00 D-Dimer 1.83 ug/mLFEU (0-0.59) H 03/04/23 20:55 Specimen Type Arterial 03/05/23 08:45 Sample Site Radial, right 03/05/23 08:45 ABG pH 7.39 (7.35-7.45) 03/05/23 08:45 ABG pCO2 52.2 mmHg (35-45) H 03/05/23 08:45 ABG pO2 103.0 mmHg (80.0-100.0) H 03/05/23 08:45 ABG PO2/FiO2 Ratio 0 03/05/23 08:45 ABG HCO3 31.3 mmol/L (22-26) H 03/05/23 08:45 ABG O2 Saturation 99.4 03/05/23 08:45 ABG Base Excess 5.1 mmol/L (-2.0-2.0) H 03/05/23 08:45 [place] Test Pos 03/05/23 08:45 A-a O2 Gradient 6.1 mmHg (5-10) 03/05/23 08:45 Hematocrit 36.7 % (37-47) L 03/05/23 08:45 Hgb O2 Saturation 95.7 % (95-100) 03/05/23 08:45 Carboxyhemoglobin 3.3 %THgb (0.4-20.1) 03/05/23 08:45 Methemoglobin 0.5 % (0.4-1.5) 03/05/23 08:45 Total Hemoglobin 12.0 g/dL (12-16) 03/05/23 08:45 Sodium 140.0 mmol/L (131-143) 03/05/23 08:45 Potassium 4.2 mmol/L (3.5-5.0) 03/05/23 08:45 Glucose 145.0 mg/dL (70-115) H 03/05/23 08:45 Ionized Calcium 1.2 mmol/L (1.1-1.4) 03/05/23 08:45 O2 Delivery Device Bipap 03/05/23 08:45 O2 Liters/Min 2.0 % 03/04/23 17:32 FiO2 30.0 % 03/05/23 08:45 Senior [employer] Developer ID Broma 03/05/23 08:45 Sodium 139 mmol/L (136-145) 03/05/23 03:00 Potassium 4.7 mmol/L (3.5-5.1) 03/05/23 03:00 Chloride 102 mmol/L (98-107) 03/05/23 03:00 Carbon Dioxide 27 mmol/L (22-29) 03/05/23 03:00 Anion Gap 14.7 (5-19) 03/05/23 03:00 BUN 29 mg/dL (6-20) H 03/05/23 03:00 Creatinine 1.1 mg/dL (0.5-0.9) H 03/05/23 03:00 GFR Calculation 51.2 mL/min (90-130) L 03/05/23 03:00 Glucose 189 mg/dL (65-115) H 03/05/23 03:00 POC Glucose 175 mg/dL (70-110) H 03/05/23 06:22 Estimat Average Glucose 189 03/04/23 20:55 Hemoglobin A1c 8.2 % (4.0-6.0) H 03/04/23 20:55 Calculated Osmolality 299 mOsm/kg (285-295) H 03/05/23 03:00 Lactic Acid 1.7 mmol/L (0.5-2.2) 03/04/23 14:54 Calcium 9.3 mg/dL (8.5-10.5) 03/05/23 03:00 Phosphorus 4.1 mg/dL (2.5-4.5) 03/05/23 03:00 Magnesium 2.0 mg/dL (1.7-2.3) 03/05/23 03:00 Total Bilirubin 0.2 mg/dL (0.15-1.2) 03/05/23 03:00 AST 12 U/L (0-32) 03/05/23 03:00 ALT 6 U/L (0-33) 03/05/23 03:00 Alkaline Phosphatase 140 U/L (35-105) H 03/05/23 03:00 Troponin T Baseline 164 ng/L (0-10) H* 03/04/23 14:54 Troponin T 120 Minute 165.4 ng/L (0-10) H 03/04/23 17:14 Delta Troponin T 1.4 ABS# (0-10) 03/04/23 17:14 Troponin T Hi Sens 6Hr 173.0 ng/L (0-10) H 03/04/23 20:55 Troponin T Hi Sens 6Hr Delta 9.0 ng/L (0-12) 03/04/23 20:55 C-Reactive Protein 16.6 mg/L (0.0-4.9) H 03/04/23 20:55 NT-Pro-B Natriuret Pep 6824 pg/mL (0-125) H 03/05/23 03:00 Total Protein 7.0 g/dL (6.6-8.7) 03/05/23 03:00 Albumin 3.3 g/dL (3.5-5.2) L 03/05/23 03:00 Globulin 3.7 g/dL (1.3-4.6) 03/05/23 03:00 Triglycerides 196 mg/dL (0-150) H 03/04/23 20: Cholesterol 147 mg/dL (0-200) 03/04/23 20: LDL Cholesterol, Calc 69 mg/dL (50-129) 03/04/23 20: HDL Cholesterol 39 mg/dL (60-100) L 03/04/23 20: LDL/HDL Ratio 1.77 RATIO (0.00-3.22) 03/04/23: Cholesterol/HDL Ratio 3.77 mg/dL (0.0-4.40) 03/04/23 20: Procalcitonin 0.20 ng/mL (0-0.5) 03/04/23 20: TSH 3.01 uIU/mL (0.27-4.20) 03/04/23 20: Urine Color Light yellow (Yellow) 03/04/23 20: Urine Appearance Clear (CLEAR) 03/04/23 20: Urine pH 5 (5-7) 03/04/23 20: Ur Specific [place] 1.005 (1.005-1.030) 03/04/23 20: Urine Protein Trace (Negative) 03/04/23 20: Urine Glucose (UA) Norm (Normal) 03/04/23 20: Urine Ketones Negative (Negative) 03/04/23 20: Urine Blood Neg (Negative) 03/04/23 20: Urine Nitrate Negative (Negative) 03/04/23 20: Urine Bilirubin Neg (Negative) 03/04/23 20: Urine Urobilinogen Norm mg/dL (Negative) 03/04/23 20: Ur Leukocyte Esterase 2+ (Negative) H 03/04/23 20:27 Urine RBC 0-4 /hpf (0-2) H 03/04/23 20: Urine WBC 15-25 /hpf (0-5) H 03/04/23 20: Ur Squamous Epith Cells 0-4 /hpf (0-5) H 03/04/23 20: Amorphous Sediment Not Reportable 03/04/23 20: Urine Bacteria 2+ /hpf (NONE) H 03/04/23 20:27 Nasal Influ A H1 2008 PCR Not detected (NOT DETECT) 03/04/23 20:30 Adenovirus (PCR) Not detected (NOT DETECT) 03/04/23 20:30 C. pneumoniae DNA (PCR) Not detected (NOT DETECT) 03/04/23 20: Coronavirus 229E (PCR) Not detected (NOT DETECT) 03/04/23 20:30 Human Metapneumovir PCR Not detected (NOT DETECT) 03/04/23 20:30 Influenza A (H1) PCR Not detected (NOT DETECT) 03/04/23 20: Influenza A (H3) PCR Not detected (NOT DETECT) 03/04/23 20:30 Influenza Type A (PCR) Not detected (NOT DETECT) 03/04/23 20:30 Influenza Type B (PCR) Not detected (NOT DETECT) 03/04/23 20: M. pneumoniae (PCR) Not detected (NOT DETECT) 03/04/23 20:30 Parainfluenza 1 (PCR) Not detected (NOT DETECT) 03/04/23 20:30 Parainfluenza 2 (PCR) Not detected (NOT DETECT) 03/04/23 20: Parainfluenza 3 (PCR) Not detected (NOT DETECT) 03/04/23 20:30 Parainfluenza 4 (PCR) Not detected (NOT DETECT) 03/04/23 20:30 RSV Type A (PCR) Not detected (NOT DETECT) 03/04/23 20:30 RSV Type B (PCR) Not detected (NOT DETECT) 03/04/23 20: Entero/Rhino (PCR) Not detected (NOT DETECT) 03/04/23 20: SARS-CoV-2 (PCR) Not detected (NOT DETECT) 03/04/23 20: Other data: The echocardiogram from today revealed Mildly dilated left ventricle. Severe diffuse hypokinesia of the LV apex. LV ejection fraction around 35 %.Grade III/IV diastolic dysfunction (restrictive filling pattern), severely elevated filling pressures. Mildly increased left atrial size. Mild to moderate mitral regurgitation. Thickened aortic valve. There is no pericardial effusion. Technically difficult study because of poor ultrasonic window. A&P Assessment and plan (1) Elevated troponin: In view of the patient's abnormal echocardiogram and the clinical presentation, her features are suggestive of a non-ST elevation myocardial infarction. At this point, patient may be continued on the heparin. I may add Plavix 300 mg p.o. now followed by 75 mg p.o. daily. Continue on all current medications. (2) CHF (congestive heart failure): Patient has systolic heart failure. Most likely she had a recent coronary event putting her into the heart failure. The heart failure may be carefully treated with diuretics. I am had losartan 25 mg p.o. daily and spironolactone 25 mg p.o. daily to her current medications. If her kidney function tolerates, we may assist the losartan to [place] Qualifiers: Heart failure chronicity: unspecified Heart failure type: unspecified Qualified Code(s): I50.9 - Heart failure, unspecified (3) Chest pain: Patient has not had any chest pain. May continue on the current medications for the time being. Qualifiers: Chest pain type: unspecified Qualified Code(s): R07.9 - Chest pain, unspecified (4) Aortic disease: Patient was found to have severe stenosis of the distal aorta with ulceration by aortogram in 2019. Status post percutaneous intervention? Stent graft. Details are not available. We will try to get the medical records from [place]. (5) Type 2 diabetes mellitus: Patient has uncontrolled diabetes. The most recent hemoglobin A1c was 8.2. Her diabetes need to be aggressively managed. 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 This needs to be closely monitored. Qualifiers: Chronic kidney disease stage: stage 2 (mild) Qualified Code(s): N18.2 - Chronic kidney disease, stage 2 (mild) Plan In view of the LV systolic dysfunction and the recent coronary event, it may be appropriate to go ahead with a coronary angiogram, once the heart failure is properly treated and the kidney function is stable Attestations 2 Medical Necessity Statement*: Patient requires continued hospital stay for close monitoring and further management Coding Level of Care Code 45915 Diagnoses Elevated troponin R79.89 Congestive heart failure, unspecified HF chronicity, unspecified heart failure type I50.9 Heart failure chronicity: unspecified Heart failure type: unspecified Chest pain, unspecified type R07.9 Chest pain type: unspecified Aortic disease I77.9 Type 2 diabetes mellitus with diabetic polyneuropathy, with long-term current use of insulin E11.42; Z79.4 Diabetes mellitus complication detail: with polyneuropathy Diabetes mellitus complication status: with neurologic complications 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
[2023-03-05 09:55] LABS: Partial Thromboplastin Time 48.7 SECONDS (23.9-36.7)
[2023-03-05] MEDS: cefTRIAXone 1,000 MG in sodium chloride 0.9% (plus) 50 ML 100 MG IV (10:06)
[2023-03-05] MEDS: vancomycin 1,500 MG/300 ML PIGGYBACK 200 MG IV ×2 (10:44→21:12)
[2023-03-05] MEDS: heparin drip 25,000 UNIT/500 ML PREMIX 40 UNIT IV (11:18)
[2023-03-05 11:44] LABS: Glucose Point of Care 161 mg/dL (70-110)
--- NOTE | 2023-03-05 14:30 | P.PN_ITS ---
Subjective 2 Subjective: Patient was seen this morning, she is a bit drowsy, she is alert to person, to place, to time, she refused to use the BiPAP throughout the night, I discussed with her the morbidity and mortality associate with hypercarbic respiratory failure, she is agreeable to wear the BiPAP, she is put out roughly 4200 mL in the last 24 hours, will continue to diurese, she denies any chest pain, no shortness of breath currently, but does prefer to lay upright Vitals/I&O/Wt Last Vital Signs Temp 97.7 F 03/05/23 08:00 Pulse 83 03/05/23 12:00 Resp 16 03/05/23 12:00 BP 152/84 03/05/23 12:00 Pulse Ox 95 03/05/23 12:00 O2 Del Method Nasal Cannula 03/05/23 12:00 O2 Flow Rate 2 03/04/23 22:03 FiO2 30 03/05/23 11:05 03/04/23 03/05/23 03/05/23 22:59 06:59 14:59 Intake Total 177.916 / 177.916 644 / 644 Output Total 1999 2250 / 2250 Balance -1822.084 / -1822.084 -1606 / -1606 Weight last 48 hrs Weight 120.61 kg Weight 121.563 kg Weight 114.759 kg Physical Exam 2 Const: COMMON NORMALS: no acute distress and patient oriented x3 Resp: COMMON NORMALS: normal respiratory effort, No retractions and No use of accessory muscles AUSCULTATION: crackles and wheezes Cardio: COMMON NORMALS: regular rate, regular rhythm, S1 normal heart sound present and S2 normal heart sound present RATE: regular rate RHYTHM: r egular rhythm HEART SOUNDS: S1 normal heart sound present and S2 normal heart sound present GI: COMMON NORMALS: Normal to inspection, nondistended, normoactive bowel sounds present and non-tender Extremity: COMMON NORMALS: no pedal edema Neuro: COMMON NORMALS: patient oriented x3 Psych: COMMON NORMALS: mental status grossly normal Urinary Catheter Management: Zacarias: Cath Placed During This Visit: yes Reason for Continuing Indwelling Catheter: Acute Urinary Retention or Obstruction Urinary Catheter Date of Insertion: 03/04/23 Urinary Catheter Time of Insertion: 20:31 Data 03/05/23 03:00 03/05/23 03:00 A&P Assessment and plan (1) Acute hypoxemic respiratory failure: (2) NSTEMI (non-ST elevated myocardial infarction): (3) Systolic CHF: (4) Pleural effusion, right: (5) Left leg swelling: (6) Chest pain: Qualifiers: Chest pain type: unspecified Qualified Code(s): R07.9 - Chest pain, unspecified (7) Obesity: (8) Cellulitis, leg: Plan Acute hypoxic respiratory failure ? Likely secondary to systolic CHF, ? Cannot order CT angiogram of the chest to rule out pulmonary embolism, as patient cannot lie flat, D-dimer 1.83, venous ultrasound ordered negative for DVT, low probability ? Plan ? Fluid restrictions of 1000 cc, ? Place Zacarias catheter, Monitor urine output, ? Lasix 40 IV twice daily, ? On heparin drip, ? sputum cultures, blood cultures ? Currently having evidence of hypercarbic respiratory failure, placed on BiPAP, patient advised of compliance NSTEMI, with complaints of chest pain ? Cardiac risk factors include complaints of chest discomfort, ? Peripheral vascular disease, ? Poorly controlled type 2 diabetes mellitus -Concerns for type I NSTEMI versus type II ? Plan ? Serial EKGs, start troponins, telemetry monitoring, ? Aspirin, ? Statin?beta-crow, ? Heparin drip ?cardiology consulted, ? Cardiac echo Systolic CHF ? As above, next Right pleural effusion, ? Will consider ultrasound thoracocentesis, Left leg swelling, ? Multifactorial from CHF, concern for DVT, ? Ultrasound for DVT Left leg cellulitis, start vancomycin, cefepime Type 2 diabetes mellitus, low-dose sliding scale, ? Right below-knee amputation, left TMA Full code chronic/heparin drip for DVT prophylaxis Attestations 2 Medical Necessity Statement*: Patient requires hospitalization for respiratory failure, NSTEMI, systolic CHF, left lower extremity cellulitis Diagnoses Acute hypoxemic respiratory failure J96.01 NSTEMI (non-ST elevated myocardial infarction) I21.4 Systolic CHF I50.20 Pleural effusion, right J90 Left leg swelling M79.89 Chest pain, unspecified type R07.9 Chest pain type: unspecified Obesity E66.9 Cellulitis, leg L03.119
[2023-03-05 17:14] LABS: Glucose Point of Care 228 mg/dL (70-110)
--- NOTE | 2023-03-05 17:18 | USCV_ITS ---
Laurel Michael Age: 57 Gender: F : 1965 Exam Date: 03/05/2023 10:19 Ordering Phys: Bryan Loco MD Technologist: Ciro Banegas Exam Location: [facility] – [place] Indication: ? chf sob BP: 149 / 93 HR: 82 Rhythm: Sinus Technical Quality: Adequate MEASUREMENTS (Male / Female) Normal Values 2D ECHO LV Diastolic Diameter PLAX 4.4 cm 4.2 - 5.9 / 3.9 - 5.3 cm LV Systolic Diameter PLAX 3.0 cm IVS Diastolic Thickness 1.1 cm 0.6 - 1.0 / 0.6 - 0.9 cm IVS Systolic Thickness 1.9 cm LVPW Diastolic Thickness 1.3 cm 0.6 - 1.0 / 0.6 - 0.9 cm LVPW Systolic Thickness 1.5 cm LVOT Diameter 2.1 cm LV Ejection Fraction 2D Teich 59.8 % LV Ejection Fraction MOD 2C 35.4 % LV Ejection Fraction 2C AL 34.5 % LA Diameter 4.4 cm IVC Diameter 2.3 cm M-MODE Aortic Annulus Diameter 3.5 cm LA Ao Ratio MM 1.4 MV E Point Septal Separation 1.4 cm DOPPLER AV Peak Velocity 150.7 cm/s LVOT Peak Velocity 70.0 cm/s AV Area Cont Eq vti 1.4 cm squared AV Area Cont Eq pk 1.5 cm squared MV Area PHT 5.0 cm squared Mitral E to A Ratio 1.3 MV E' Velocity 54.5 cm/s Mitral E to MV E' Ratio 28.5 Mitral E to LV E' Lateral Ratio 30.1 Mitral E to LV E' Septal Ratio 27.0 TR Peak Velocity 138.7 cm/s TR Peak Gradient 7.7 mmHg TV Peak E Velocity 62.0 cm/s Right Atrial Pressure 3.0 mmHg Pulmonary Artery Systolic Pressu 10.7 mmHg RV Acceleration Time 0.1 s FINDINGS Left Ventricle Mildly dilated left ventricle. Severe diffuse hypokinesia of the apex. LV ejection fraction around 35 %.Grade III/IV diastolic dysfunction (restrictive filling pattern), severely elevated filling pressures. Right Ventricle Normal right ventricular size and systolic function. Right Atrium Normal right atrial size. Left Atrium Mildly increased left atrial size. Mitral Valve Mild to moderate mitral regurgitation Aortic Valve Thickened aortic valve. Tricuspid Valve No gross abnormalities noted. Pulmonic Valve Pulmonic valve not well visualized. Pericardium No pericardial effusion. Aorta Normal aortic annulus size. IVC Normal inferior vena cava. CONCLUSIONS Mildly dilated left ventricle. Severe diffuse hypokinesia of the LV apex. LV ejection fraction around 35 %.Grade III/IV diastolic dysfunction (restrictive filling pattern), severely elevated filling pressures. Mildly increased left atrial size. Mild to moderate mitral regurgitation. Thickened aortic valve. There is no pericardial effusion. Technically difficult study because of poor ultrasonic window. Dr Oscar Echevarria MD FACC (Electronically Signed) Final Date: 05 March 2023 14:47 S
[2023-03-05] MEDS: acetaminophen 325 mg Tablet 650 MG PO (17:35)
[2023-03-05 18:38] LABS: Partial Thromboplastin Time 52.7 SECONDS (23.9-36.7)
[2023-03-05] MEDS: clopidogrel 300 mg Tablet PO (19:55)
[2023-03-05] MEDS: atorvastatin 40 mg Tablet PO (19:55)
[2023-03-05] MEDS: pantoprazole 40 mg SDV IVP (19:56)
[2023-03-05 21:22] LABS: Glucose Point of Care 238 mg/dL (70-110)
[2023-03-05] MEDS: heparin drip 25,000 UNIT/500 ML PREMIX 44 UNIT IV (22:51)
[2023-03-06] VITALS (16 sets, daily range): BP systolic 107–132; BP diastolic 63–77; PULSE 68–94; RESP 15–23; TEMP 36.5–36.8; O2SAT 95–99
[2023-03-06 01:25] LABS: Partial Thromboplastin Time 79.9 SECONDS (23.9-36.7)
[2023-03-06 04:03] LABS: Basophils % 0.4 %; Eosinophils # 0.3 10^3/uL (0.0-0.8); Eosinophils % 3.4 %; Hematocrit 38.6 % (36-47); Lymphocytes # 1.2 10^3/uL (0.8-4.8); Lymphocytes % 16.5 %; Mean Corpuscular HGB Conc 30.3 g/dL (30-55); Mean Corpuscular Hemoglobin 28.4 pg (27-33); Mean Corpuscular Volume 93.7 fl (85-98); Mean Platelet Volume 10.6 fL (7.4-10.4); Monocytes # 0.3 10^3/uL (0.2-0.9); Monocytes % 4.6 %; Neutrophils # 5.53 10^3/uL (1.8-7.7); Nucleated Red Blood Cells % 0 %; Platelet Count 208 10^3/cmm (157-399); Red Blood Count 4.12 10^6/uL (3.85-5.65); Red Cell Distribution Width 15.9 % (12.1-15.1); White Blood Count 7.46 10^3/uL (3.29-11.43)
[2023-03-06 04:27] LABS: Alanine Aminotransferase < 5 U/L (0-33); Albumin Level 3.6 g/dL (3.5-5.2); Alkaline Phosphatase 135 U/L (35-105); Aspartate Amino Transferase 10 U/L (0-32); Blood Urea Nitrogen 29 mg/dL (6-20); Carbon Dioxide 28 mmol/L (22-29); Chloride 98 mmol/L (98-107); Globulin 3.2 g/dL (1.3-4.6); Glomerular Filtration Rate 42.2 mL/min (90-130); Glucose 193 mg/dL (65-115); Magnesium 1.9 mg/dL (1.7-2.3); Osmolality Calculated 299 mOsm/kg (285-295); Phosphorus 4.6 mg/dL (2.5-4.5); Sodium 139 mmol/L (136-145); Total Bilirubin 0.3 mg/dL (0.15-1.2); Total Protein 6.8 g/dL (6.6-8.7)
[2023-03-06 04:29] LABS: Anion Gap 18.1 (5-19); Potassium 5.1 mmol/L (3.5-5.1)
[2023-03-06 04:48] LABS: NT Pro B Type Natriuretic Pept 7490 pg/mL (0-125)
--- NOTE | 2023-03-06 05:41 | PM.PN ---
Subjective Subjective: Patient has been diuresing well. Vitals/I&O/Wt Last Vital Signs Temp 97.7 F 03/06/23 00:00 Pulse 82 03/06/23 04:19 Resp 23 H 03/06/23 00:00 BP 120/77 03/06/23 00:00 Pulse Ox 97 03/06/23 04:19 O2 Del Method BiPAP 03/06/23 00:00 O2 Flow Rate 2 03/04/23 22:03 FiO2 30 03/06/23 04:19 03/05/23 03/05/23 03/06/23 14:59 22:59 06:59 Intake Total 644 / 644 827.466 / 1471.466 395.933 / 1867.399 Output Total 2250 / 2250 750 / 3000 Balance -1606 / -1606 77.466 / -1528.534 395.933 / -1132.601 Weight last 48 hrs Weight 265 lb 14.4 oz Weight 268 lb Weight 253 lb Physical Exam Narrative: GENERAL: Patient is alert, awake and oriented x3. [] NECK: No jugular vein distension. [] HEENT: No cyanosis. No icterus. No pallor. [] HEART: Regular S1 and S2. No murmur, rub or gallop. [] LUNGS: Diminished air entry CENTRAL NERVOUS SYSTEM: Grossly nonfocal. [] EXTREMITIES: Lower extremities with 1-2+ edema on left lower extremity Urinary Catheter Management: Zacarias: Cath Placed During This Visit: yes Reason for Continuing Indwelling Catheter: Accurate Measurement of Urinary Output in Critically Ill Patients Urinary Catheter Date of Insertion: 03/04/23 Urinary Catheter Time of Insertion: 20:31 Data 03/07/23 02:49 03/07/23 02:49 Micro: Microbiology 03/04/23 18:36 Gram Stain - Final Sputum - Expectorated Sputum A&P Assessment and plan (1) Elevated troponin: Patient will need coronary angiography however renal function is still not normal. She needs further diuresis. We will switch her diuretics to p.o. Lasix. Monitor renal funciton. If renal function improves, will plan for angiogram tomorrow. NPO past midnight (2) CHF (congestive heart failure): Patient has systolic congestive heart failure. We will continue with p.o. diuretics. Renal function has worsened today however still volume overloaded. Will continue diuresis. Close I and Os. Qualifiers: Heart failure chronicity: unspecified Heart failure type: unspecified Qualified Code(s): I50.9 - Heart failure, unspecified (3) Chest pain: Patient has not had any chest pain. May continue on the current medications for the time being. Qualifiers: Chest pain type: unspecified Qualified Code(s): R07.9 - Chest pain, unspecified (4) Aortic disease: Possible stent graft. (5) Type 2 diabetes mellitus: Uncontrolled. Management per primary team. Qualifiers: Diabetes mellitus intermediate insulin use: with terminal superintendent use Diabetes mellitus complication status: with neurologic complications Diabetes mellitus complication detail: with polyneuropathy Qualified Code(s): E11.42 - Type 2 diabetes mellitus with diabetic polyneuropathy; Z79.4 - intermediate frame tender (current) use of insulin (6) Chronic kidney disease (CKD): Creatinine has worsened. However the patient is still volume overloaded. We will continue with diuresis. Qualifiers: Chronic kidney disease stage: stage 2 (mild) Qualified Code(s): N18.2 - Chronic kidney disease, stage 2 (mild) Plan Patient needs continue diuresis. Monitor I&O's. Plan for coronary angiogram once renal function is stable. Attestations Medical Necessity Statement*: Care expected to cross 2 midnights. Coding Level of Care Code Acute Code for g Fwd Diagnoses Elevated troponin R79.89 Congestive heart failure, unspecified HF chronicity, unspecified heart failure type I50.9 Heart failure chronicity: unspecified Heart failure type: unspecified Chest pain, unspecified type R07.9 Chest pain type: unspecified Aortic disease I77.9 Type 2 diabetes mellitus with diabetic polyneuropathy, with long-term current use of insulin E11.42; Z79.4 Diabetes mellitus intermediate insulin use: with intermediate use Diabetes mellitus complication status: with neurologic complications Diabetes mellitus complication detail: with polyneuropathy Stage 2 chronic kidney disease N18.2 Chronic kidney disease stage: stage 2 (mild)
[2023-03-06 06:50] LABS: Glucose Point of Care 177 mg/dL (70-110)
[2023-03-06 08:28] LABS: Partial Thromboplastin Time 89.5 SECONDS (23.9-36.7)
[2023-03-06] MEDS: gabapentin 300 mg Capsule 1800 MG PO ×2 (09:14→20:34)
[2023-03-06] MEDS: carvedilol 3.125 mg Tablet PO ×2 (09:14→18:21)
[2023-03-06] MEDS: citalopram 20 mg Tablet 40 MG PO (09:15)
[2023-03-06] MEDS: clopidogrel 75 mg Tablet PO (09:15)
[2023-03-06] MEDS: aspirin 81 mg EC Tablet PO (09:15)
[2023-03-06] MEDS: cefTRIAXone 1,000 MG in sodium chloride 0.9% (plus) 50 ML 100 MG IV (09:16)
[2023-03-06] MEDS: insulin lispro 100 unit/1 mL SUBCUT ×3 (09:21→18:21)
[2023-03-06] MEDS: FUROsemide 40 mg Tablet PO ×2 (09:21→18:26)
[2023-03-06] MEDS: vancomycin 1,500 MG/300 ML PIGGYBACK 200 MG IV (10:02)
[2023-03-06] MEDS: heparin drip 25,000 UNIT/500 ML PREMIX 40 UNIT IV (10:13)
[2023-03-06 10:51] LABS: Glucose Point of Care 246 mg/dL (70-110)
--- NOTE | 2023-03-06 14:46 | P.PN_ITS ---
Subjective 2 Subjective: patient was seen this morning, she significantly feels better, no fevers, chills, cough Vitals/I&O/Wt Last Vital Signs Temp 98.0 F 03/06/23 11:38 Pulse 86 03/06/23 11:38 Resp 18 03/06/23 11:38 BP 107/64 03/06/23 11:38 Pulse Ox 98 03/06/23 11:38 O2 Del Method Nasal Cannula 03/06/23 08:40 O2 Flow Rate 3 03/06/23 08:40 FiO2 30 03/06/23 08:41 03/05/23 03/06/23 03/06/23 22:59 06:59 14:59 Intake Total 827.466 / 1471.466 895.933 / 2367.399 685.133 / 685.133 Output Total 750 / 3000 1300 / 4300 980 / 980 Balance 77.466 / -1528.534 -404.067 / -1932.601 -294.867 / -294.867 Weight last 48 hrs Weight 122.561 kg Weight 120.61 kg Weight 121.563 kg Physical Exam 2 Const: COMMON NORMALS: no acute distress and patient oriented x3 Resp: COMMON NORMALS: normal respiratory effort, No retractions and No use of accessory muscles AUSCULTATION: wheezes Cardio: COMMON NORMALS: regular rate, regular rhythm, S1 normal heart sound present and S2 normal heart sound present RATE: regular rate RHYTHM: r egular rhythm HEART SOUNDS: S1 normal heart sound present and S2 normal heart sound present GI: COMMON NORMALS: Normal to inspection, nondistended, normoactive bowel sounds present and non-tender Extremity: COMMON NORMALS: no pedal edema Neuro: COMMON NORMALS: patient oriented x3 Psych: COMMON NORMALS: mental status grossly normal Urinary Catheter Management: Zacarias: Cath Placed During This Visit: yes Reason for Continuing Indwelling Catheter: Accurate Measurement of Urinary Output in Critically Ill Patients Urinary Catheter Date of Insertion: 03/04/23 Urinary Catheter Time of Insertion: 20:31 Data 03/06/23 02:50 03/06/23 02:50 Micro: Microbiology 03/04/23 18:36 Gram Stain - Final Sputum - Expectorated Sputum Sputum Culture - Preliminary 03/04/23 20:27 Urine Culture - Preliminary Urine,Clean Catch Gram Negative Rods A&P Assessment and plan (1) Acute hypoxemic respiratory failure: (2) NSTEMI (non-ST elevated myocardial infarction): (3) Systolic CHF: (4) Pleural effusion, right: (5) Left leg swelling: (6) Chest pain: Qualifiers: Chest pain type: unspecified Qualified Code(s): R07.9 - Chest pain, unspecified (7) Obesity: (8) Cellulitis, leg: Plan Acute hypoxic respiratory failure ? Likely secondary to systolic CHF, ? Cannot order CT angiogram of the chest to rule out pulmonary embolism, as patient cannot lie flat, D-dimer 1.83, venous ultrasound ordered negative for DVT, low probability ? Plan ? Fluid restrictions of 1000 cc, ? Place Zacarias catheter, Monitor urine output, ? Lasix 40 po twice daily, ? On heparin drip, ? sputum cultures, blood cultures ? coutinue bipap NSTEMI, with complaints of chest pain ? Cardiac risk factors include complaints of chest discomfort, ? Peripheral vascular disease, ? Poorly controlled type 2 diabetes mellitus -Concerns for type I NSTEMI versus type II ? Plan ? Serial EKGs, start troponins, telemetry monitoring, ? Aspirin, ? Statin?beta-crow, ? Heparin drip ?cardiology consulted, plan on angiogram ? Cardiac echo Systolic CHF ? Mildly dilated left ventricle. Severe diffuse hypokinesia of the LV apex. LV ejection fraction around 35 %.Grade III/IV diastolic dysfunction (restrictive filling pattern), severely elevated filling pressures. Mildly increased left atrial size. Mild to moderate mitral regurgitation. Thickened aortic valve. There is no pericardial effusion. Technically difficult study because of poor ultrasonic window. Right pleural effusion, ? Will consider ultrasound thoracocentesis, Left leg swelling, ? Multifactorial from CHF, concern for DVT, ? Ultrasound for DVT negative Left leg cellulitis, start vancomycin, cefepime Type 2 diabetes mellitus, low-dose sliding scale, ? Right below-knee amputation, left TMA Full code chronic/heparin drip for DVT prophylaxis Attestations 2 Medical Necessity Statement*: Patient requires hospitalization for respiratory failure Diagnoses Acute hypoxemic respiratory failure J96.01 NSTEMI (non-ST elevated myocardial infarction) I21.4 Systolic CHF I50.20 Pleural effusion, right J90 Left leg swelling M79.89 Chest pain, unspecified type R07.9 Chest pain type: unspecified Obesity E66.9 Cellulitis, leg L03.119
[2023-03-06 15:35] LABS: Partial Thromboplastin Time 64.2 SECONDS (23.9-36.7)
[2023-03-06 17:35] LABS: Glucose Point of Care 252 mg/dL (70-110)
[2023-03-06 20:22] LABS: Glucose Point of Care 239 mg/dL (70-110)
[2023-03-06] MEDS: atorvastatin 40 mg Tablet PO (20:35)
[2023-03-06] MEDS: morphine 4 mg/mL SDV 1 mL 2 MG IVP (20:37)
[2023-03-06] MEDS: pantoprazole 40 mg SDV IVP (20:37)
[2023-03-06 20:49] LABS: Vancomycin Trough 29.9 ug/mL (10-15)
[2023-03-06 20:56] LABS: NT Pro B Type Natriuretic Pept 7239 pg/mL (0-125)
[2023-03-06 22:42] LABS: Partial Thromboplastin Time 64.1 SECONDS (23.9-36.7)
[2023-03-07] VITALS (188 sets, daily range): BP systolic 118–154; BP diastolic 65–86; PULSE 74–105; RESP 12–40; TEMP 36.5–37; O2SAT 75–100
[2023-03-07] MEDS: heparin drip 25,000 UNIT/500 ML PREMIX 40 UNIT IV ×2 (00:06→13:03)
[2023-03-07 04:01] LABS: Basophils % 0.6 %; Eosinophils # 0.3 10^3/uL (0.0-0.8); Eosinophils % 4.5 %; Hematocrit 34.8 % (36-47); Lymphocytes # 1.7 10^3/uL (0.8-4.8); Lymphocytes % 25.1 %; Mean Corpuscular HGB Conc 30.5 g/dL (30-55); Mean Corpuscular Hemoglobin 28.3 pg (27-33); Mean Corpuscular Volume 92.8 fl (85-98); Mean Platelet Volume 10.9 fL (7.4-10.4); Monocytes # 0.5 10^3/uL (0.2-0.9); Monocytes % 7.4 %; Neutrophils # 4.14 10^3/uL (1.8-7.7); Neutrophils % 61.4 %; Nucleated Red Blood Cells % 0 %; Platelet Count 184 10^3/cmm (157-399); Red Blood Count 3.75 10^6/uL (3.85-5.65); Red Cell Distribution Width 15.7 % (12.1-15.1); White Blood Count 6.74 10^3/uL (3.29-11.43)
[2023-03-07 04:47] LABS: NT Pro B Type Natriuretic Pept 9140 pg/mL (0-125)
[2023-03-07 04:49] LABS: Alanine Aminotransferase < 5 U/L (0-33); Albumin Level 3.4 g/dL (3.5-5.2); Alkaline Phosphatase 116 U/L (35-105); Anion Gap 17.4 (5-19); Aspartate Amino Transferase 7 U/L (0-32); Blood Urea Nitrogen 34 mg/dL (6-20); Calcium 9.1 mg/dL (8.5-10.5); Carbon Dioxide 28 mmol/L (22-29); Chloride 95 mmol/L (98-107); Globulin 3.7 g/dL (1.3-4.6); Glomerular Filtration Rate 38.8 mL/min (90-130); Glucose 193 mg/dL (65-115); Magnesium 1.6 mg/dL (1.7-2.3); Osmolality Calculated 295 mOsm/kg (285-295); Phosphorus 4.2 mg/dL (2.5-4.5); Potassium 4.4 mmol/L (3.5-5.1); Sodium 136 mmol/L (136-145); Total Bilirubin 0.2 mg/dL (0.15-1.2); Total Protein 7.1 g/dL (6.6-8.7)
[2023-03-07 06:48] LABS: Glucose Point of Care 166 mg/dL (70-110)
[2023-03-07 08:00] LABS: Vancomycin Random 23.9 ug/mL (20.0-40.0)
[2023-03-07] MEDS: clopidogrel 75 mg Tablet PO (08:17)
[2023-03-07] MEDS: gabapentin 300 mg Capsule 1800 MG PO ×2 (08:17→20:30)
[2023-03-07] MEDS: carvedilol 3.125 mg Tablet PO ×2 (08:17→17:13)
[2023-03-07] MEDS: aspirin 81 mg EC Tablet PO (08:18)
[2023-03-07] MEDS: FUROsemide 40 mg Tablet PO ×2 (08:18→17:13)
[2023-03-07] MEDS: citalopram 20 mg Tablet 40 MG PO (08:19)
[2023-03-07] MEDS: cefTRIAXone 1,000 MG in sodium chloride 0.9% (plus) 50 ML 100 MG IV (08:20)
--- NOTE | 2023-03-07 11:29 | P.PN_ITS ---
Subjective 2 Subjective: Patient's creatinine went up today, Has been diuresing well. Feeling better. Vitals/I&O/Wt Last Vital Signs Temp 97.7 F 03/07/23 07:25 Pulse 85 03/07/23 10:37 Resp 25 H 03/07/23 10:37 BP 118/65 03/07/23 10:37 Pulse Ox 92 03/07/23 10:35 O2 Del Method Oxymask 03/07/23 07:37 O2 Flow Rate 2 03/07/23 07:37 FiO2 30 03/07/23 04:00 03/06/23 03/07/23 03/07/23 22:59 06:59 14:59 Intake Total 500 / 1185.133 0 / 1185.133 550 / 550 Output Total 2050 / 3530 1600 / 5130 420 / 420 Balance -1550 / -2344.867 -1600 / -3944.867 130 / 130 Weight last 48 hrs Weight 271 lb 9.6 oz Weight 270 lb 3.2 oz Physical Exam 2 Narrative: GENERAL: Patient is alert, awake and oriented x3. [] NECK: No jugular vein distension. [] HEENT: No cyanosis. No icterus. No pallor. [] HEART: Regular S1 and S2. No murmur, rub or gallop. [] LUNGS: Diminished air entry CENTRAL NERVOUS SYSTEM: Grossly nonfocal. [] EXTREMITIES: Lower extremities with 1-2+ edema on left lower extremity Urinary Catheter Management: Zacarias: Cath Placed During This Visit: yes Reason for Continuing Indwelling Catheter: Accurate Measurement of Urinary Output in Critically Ill Patients Urinary Catheter Date of Insertion: 03/04/23 Urinary Catheter Time of Insertion: 20:31 Data 03/08/23 05:18 03/07/23 17:13 Micro: Microbiology 03/04/23 19:39 Blood Culture - Preliminary Blood 03/04/23 19:34 Blood Culture - Preliminary Blood 03/04/23 18:36 Gram Stain - Final Sputum - Expectorated Sputum Sputum Culture - Preliminary 03/04/23 20:27 Urine Culture - Preliminary Urine,Clean Catch Gram Negative Rods A&P Assessment and plan (1) Elevated troponin: Patient's renal function worsened today otherwise plans for coronary angiography today. We will continue with diuresis as appears volume overloaded still. Monitor I&O's. Monitor renal function. Once renal function is stable, we will proceed with the procedure. (2) CHF (congestive heart failure): LV systolic function is significantly low. We will continue with diuresis for now. Monitor I&O's Qualifiers: Heart failure chronicity: unspecified Heart failure type: unspecified Qualified Code(s): I50.9 - Heart failure, unspecified (3) Chest pain: Patient has not had any chest pain. May continue on the current medications for the time being. Qualifiers: Chest pain type: unspecified Qualified Code(s): R07.9 - Chest pain, unspecified (4) Aortic disease: Possible stent graft. (5) Type 2 diabetes mellitus: Uncontrolled. Management per primary team. Qualifiers: Diabetes mellitus mcc insulin use: with termite control servicer use Diabetes mellitus complication status: with neurologic complications Diabetes mellitus complication detail: with polyneuropathy Qualified Code(s): E11.42 - Type 2 diabetes mellitus with diabetic polyneuropathy; Z79.4 - long term (current) use of insulin (6) Chronic kidney disease (CKD): Monitor renal function. Qualifiers: Chronic kidney disease stage: stage 2 (mild) Qualified Code(s): N18.2 - Chronic kidney disease, stage 2 (mild) Plan Plan for coronary angiography once renal function is stable. Attestations 2 Medical Necessity Statement*: Care expected to cross 2 midnights. Coding Level of Care Code [facility] Diagnoses Elevated troponin R79.89 Congestive heart failure, unspecified HF chronicity, unspecified heart failure type I50.9 Heart failure chronicity: unspecified Heart failure type: unspecified Chest pain, unspecified type R07.9 Chest pain type: unspecified Aortic disease I77.9 Type 2 diabetes mellitus with diabetic polyneuropathy, with long-term current use of insulin E11.42; Z79.4 Diabetes mellitus termite control servicer insulin use: with mcc use Diabetes mellitus complication status: with neurologic complications Diabetes mellitus complication detail: with polyneuropathy Stage 2 chronic kidney disease N18.2 Chronic kidney disease stage: stage 2 (mild)
[2023-03-07 12:08] LABS: Glucose Point of Care 192 mg/dL (70-110)
[2023-03-07] MEDS: insulin lispro 100 unit/1 mL SUBCUT ×2 (13:05→17:14)
[2023-03-07 15:52] LABS: Partial Thromboplastin Time 59.8 SECONDS (23.9-36.7)
--- NOTE | 2023-03-07 16:13 | P.PN_ITS ---
Subjective 2 Subjective: Patient was seen this morning, she tells me that she is feeling better, continues to have edema, no fevers, no chills, no cough, her creatinine is up to 1.4, but still fluid overloaded, plan on diuresing her watching kidney function Vitals/I&O/Wt Last Vital Signs Temp 98.4 F 03/07/23 13:55 Pulse 86 03/07/23 15:43 Resp 18 03/07/23 13:55 BP 145/85 03/07/23 13:55 Pulse Ox 95 03/07/23 15:42 O2 Del Method Oxymask 03/07/23 07:37 O2 Flow Rate 2 03/07/23 07:37 FiO2 30 03/07/23 15:42 03/07/23 03/07/23 03/07/23 06:59 14:59 22:59 Intake Total 0 / 1300.932 3448 / 1290 Output Total 1600 / 5130 1370 / 1370 Balance -1600 / -3944.867 -80 / -80 Weight last 48 hrs Weight 123.196 kg Weight 122.561 kg Physical Exam 2 Const: COMMON NORMALS: no acute distress and patient oriented x3 Resp: COMMON NORMALS: normal respiratory effort, No retractions, No use of accessory muscles and clear to auscultation bilaterally AUSCULTATION: clear to auscultation bilaterally Cardio: COMMON NORMALS: regular rate, regular rhythm, S1 normal heart sound present and S2 normal heart sound present RATE: regular rate RHYTHM: r egular rhythm HEART SOUNDS: S1 normal heart sound present and S2 normal heart sound present GI: COMMON NORMALS: Normal to inspection, nondistended, normoactive bowel sounds present and non-tender Extremity: NARRATIVE EXTREMITY EXAM: 1+ pitting edema Neuro: COMMON NORMALS: patient oriented x3 Psych: COMMON NORMALS: mental status grossly normal Urinary Catheter Management: Zacarias: Cath Placed During This Visit: yes Reason for Continuing Indwelling Catheter: Accurate Measurement of Urinary Output in Critically Ill Patients Urinary Catheter Date of Insertion: 03/04/23 Urinary Catheter Time of Insertion: 20:31 Data 03/07/23 02:49 03/07/23 02:49 Micro: Microbiology 03/04/23 20:27 Urine Culture - Final Urine,Clean Catch Escherichia coli 03/04/23 18:36 Gram Stain - Final Sputum - Expectorated Sputum Sputum Culture - Final 03/04/23 19:39 Blood Culture - Preliminary Blood 03/04/23 19:34 Blood Culture - Preliminary Blood A&P Assessment and plan (1) Acute hypoxemic respiratory failure: (2) NSTEMI (non-ST elevated myocardial infarction): (3) Systolic CHF: (4) Pleural effusion, right: (5) Left leg swelling: (6) Chest pain: Qualifiers: Chest pain type: unspecified Qualified Code(s): R07.9 - Chest pain, unspecified (7) Obesity: (8) Cellulitis, leg: Plan Acute hypoxic respiratory failure ? Likely secondary to systolic CHF, ? Cannot order CT angiogram of the chest to rule out pulmonary embolism, as patient cannot lie flat, D-dimer 1.83, venous ultrasound ordered negative for DVT, low probability ? Plan ? Fluid restrictions of 1000 cc, ? Place Zacarias catheter, Monitor urine output, ? Lasix 40 po twice daily, creatinine 1.5, urine output over 7 L, monitor creatinine this afternoon ? On heparin drip, ? sputum cultures, blood cultures ? coutinue bipap NSTEMI, with complaints of chest pain ? Cardiac risk factors include complaints of chest discomfort, ? Peripheral vascular disease, ? Poorly controlled type 2 diabetes mellitus -Concerns for type I NSTEMI versus type II ? Plan ? Serial EKGs, start troponins, telemetry monitoring, ? Aspirin, ? Statin?beta-crow, ? Heparin drip ?cardiology consulted, plan on angiogram ? Cardiac echo Systolic CHF ? Mildly dilated left ventricle. Severe diffuse hypokinesia of the LV apex. LV ejection fraction around 35 %.Grade III/IV diastolic dysfunction (restrictive filling pattern), severely elevated filling pressures. Mildly increased left atrial size. Mild to moderate mitral regurgitation. Thickened aortic valve. There is no pericardial effusion. Technically difficult study because of poor ultrasonic window. Right pleural effusion, ? Will consider ultrasound thoracocentesis, Left leg swelling, ? Multifactorial from CHF, concern for DVT, ? Ultrasound for DVT negative Left leg cellulitis,cefepime, vancomycin level elevated, switch to Zyvox UTI, E. coli, continue cefepime Type 2 diabetes mellitus, low-dose sliding scale, ? Right below-knee amputation, left TMA Full code chronic/heparin drip for DVT prophylaxis Attestations 2 Medical Necessity Statement*: Patient requires hospitalization for fluid overload requiring IV diuresis, UTIs, cellulitis, systolic CHF exacerbation, NSTEMI, Diagnoses Acute hypoxemic respiratory failure J96.01 NSTEMI (non-ST elevated myocardial infarction) I21.4 Systolic CHF I50.20 Pleural effusion, right J90 Left leg swelling M79.89 Chest pain, unspecified type R07.9 Chest pain type: unspecified Obesity E66.9 Cellulitis, leg L03.119
[2023-03-07 17:19] LABS: Glucose Point of Care 367 mg/dL (70-110)
[2023-03-07 17:47] LABS: Anion Gap 16.4 (5-19); Blood Urea Nitrogen 33 mg/dL (6-20); Calcium 9.2 mg/dL (8.5-10.5); Carbon Dioxide 29 mmol/L (22-29); Chloride 92 mmol/L (98-107); Glomerular Filtration Rate 42.2 mL/min (90-130); Glucose 352 mg/dL (65-115); Osmolality Calculated 297 mOsm/kg (285-295); Potassium 4.4 mmol/L (3.5-5.1); Sodium 133 mmol/L (136-145)
[2023-03-07] MEDS: atorvastatin 40 mg Tablet PO (20:31)
[2023-03-07] MEDS: linezolid premix 600 MG/300 ML PREMIX 300 MG IV (20:34)
[2023-03-07] MEDS: morphine 4 mg/mL SDV 1 mL 2 MG IVP (20:37)
[2023-03-07] MEDS: pantoprazole 40 mg SDV IVP (20:38)
[2023-03-07 20:42] LABS: Glucose Point of Care 371 mg/dL (70-110)
[2023-03-08] VITALS (12 sets, daily range): BP systolic 138–155; BP diastolic 71–99; PULSE 77–98; RESP 16–185; TEMP 35.8–37.1; O2SAT 91–99
[2023-03-08] MEDS: heparin drip 25,000 UNIT/500 ML PREMIX 40 UNIT IV ×2 (01:53→15:40)
[2023-03-08] MEDS: temazepam 15 mg Capsule PO (02:35)
[2023-03-08 05:27] LABS: Basophils # 0.1 10^3/uL (0.0-0.1); Basophils % 0.8 %; Eosinophils # 0.4 10^3/uL (0.0-0.8); Eosinophils % 4.6 %; Hematocrit 36.1 % (36-47); Lymphocytes # 1.8 10^3/uL (0.8-4.8); Mean Corpuscular HGB Conc 30.5 g/dL (30-55); Mean Corpuscular Hemoglobin 28.2 pg (27-33); Mean Corpuscular Volume 92.6 fl (85-98); Mean Platelet Volume 10.8 fL (7.4-10.4); Monocytes # 0.5 10^3/uL (0.2-0.9); Monocytes % 6.5 %; Neutrophils # 4.92 10^3/uL (1.8-7.7); Neutrophils % 64.2 %; Nucleated Red Blood Cells % 0 %; Platelet Count 190 10^3/cmm (157-399); Red Cell Distribution Width 15.5 % (12.1-15.1); White Blood Count 7.66 10^3/uL (3.29-11.43)
[2023-03-08 05:49] LABS: Glucose Point of Care 275 mg/dL (70-110)
[2023-03-08 06:21] LABS: Partial Thromboplastin Time 64.3 SECONDS (23.9-36.7)
[2023-03-08 06:36] LABS: NT Pro B Type Natriuretic Pept 8737 pg/mL (0-125)
[2023-03-08 06:55] LABS: C Reactive Protein 10.3 mg/L (0.0-4.9); Magnesium 1.6 mg/dL (1.7-2.3); Phosphorus 3.8 mg/dL (2.5-4.5)
--- NOTE | 2023-03-08 08:13 | USCV_ITS ---
Laurel Michael Age: 57 Gender: F : 1965 Exam Date: 03/08/2023 09:23 Ordering Phys: Bryan Loco MD Technologist: Ciro Banegas Exam Location: [facility] – [place] Indication: vascular access Findings Moderate to heavy heterogenous plaques in the right common femoral artery with a low velocity Doppler signals. Patent right common femoral vein and distal iliac artery Mild to moderate diffuse plaques in the iliac arteries bilaterally Mild to moderate plaque in the left common femoral artery with a normal Doppler flow velocity and monophasic waveforms Patent common femoral veins bilaterally Conclusions Mild to moderate plaque in the left common femoral artery with normal Doppler flow velocity Moderate to heavy plaque in the right common femoral artery with sluggish blood flow Patent iliac arteries bilaterally with mild to moderate plaques Patent common femoral veins bilaterally No similar previous studies are available for comparison Dr Oscar Echevarria MD [facility] (Electronically Signed) Final Date: 09 March 2023 15:12 S
[2023-03-08] MEDS: gabapentin 300 mg Capsule 1800 MG PO ×2 (09:18→21:00)
[2023-03-08] MEDS: citalopram 20 mg Tablet 40 MG PO (09:19)
[2023-03-08] MEDS: magnesium lactate 84 mg Tablet PO (09:19)
[2023-03-08] MEDS: clopidogrel 75 mg Tablet PO (09:19)
[2023-03-08] MEDS: aspirin 81 mg EC Tablet PO (09:19)
[2023-03-08] MEDS: insulin lispro 100 unit/1 mL SUBCUT ×3 (09:19→17:22)
[2023-03-08] MEDS: cefTRIAXone 1,000 MG in sodium chloride 0.9% (plus) 50 ML 100 MG IV (09:20)
[2023-03-08] MEDS: linezolid premix 600 MG/300 ML PREMIX 300 MG IV ×2 (09:20→21:01)
--- NOTE | 2023-03-08 09:58 | PC.NURSE ---
Dr. Echevarria ordered a BUN and creat on patient. Order entered.
[2023-03-08] MEDS: FUROsemide 40 mg Tablet PO ×2 (10:07→17:22)
[2023-03-08] MEDS: carvedilol 3.125 mg Tablet PO ×2 (10:07→17:22)
[2023-03-08] MEDS: nicotine 21 mg Patch 1 PATCH TRANSDERMA (10:07)
[2023-03-08] MEDS: insulin glargine 100 units/1 mL 10 UNIT SUBCUT (10:09)
[2023-03-08 10:29] LABS: Blood Urea Nitrogen 33 mg/dL (6-20); Glomerular Filtration Rate 42.2 mL/min (90-130)
[2023-03-08 12:04] LABS: Glucose Point of Care 360 mg/dL (70-110)
--- NOTE | 2023-03-08 12:26 | PC.SOCIAL ---
IMM Update pg 2 of IMM updated and reviewed w/ patient. Copy provided and copy dated, initialed and placed in chart.
--- NOTE | 2023-03-08 13:24 | P.PN_ITS ---
Subjective 2 Subjective: patient was seem this morning, has no complaints, has some intermittent shortness of breath, no abdomnal pain Vitals/I&O/Wt Last Vital Signs Temp 97.8 F 03/08/23 12:00 Pulse 84 03/08/23 12:00 Resp 25 H 03/08/23 12:00 BP 155/99 03/08/23 12:00 Pulse Ox 96 03/08/23 12:00 O2 Del Method Oxymask 03/08/23 07:39 O2 Flow Rate 2 03/08/23 07:39 FiO2 30 03/08/23 03:46 03/07/23 03/08/23 03/08/23 22:59 06:59 14:59 Intake Total 300 / 1590 500 / 2090 350 / 350 Output Total 2150 / 3520 1250 / 4770 Balance -1850 / -1930 -750 / -2680 350 / 350 Weight last 48 hrs Weight 119.748 kg Weight 123.196 kg Physical Exam 2 Const: COMMON NORMALS: no acute distress and patient oriented x3 Resp: COMMON NORMALS: normal respiratory effort, No retractions, No use of accessory muscles and clear to auscultation bilaterally AUSCULTATION: clear to auscultation bilaterally Cardio: COMMON NORMALS: regular rate, regular rhythm, S1 normal heart sound present and S2 normal heart sound present RATE: regular rate RHYTHM: r egular rhythm HEART SOUNDS: S1 normal heart sound present and S2 normal heart sound present GI: COMMON NORMALS: Normal to inspection, nondistended, normoactive bowel sounds present and non-tender Extremity: COMMON NORMALS: no pedal edema Neuro: COMMON NORMALS: patient oriented x3 Urinary Catheter Management: Zacarias: Cath Placed During This Visit: yes Reason for Continuing Indwelling Catheter: Accurate Measurement of Urinary Output in Critically Ill Patients Urinary Catheter Date of Insertion: 03/04/23 Urinary Catheter Time of Insertion: 20:31 Data 03/08/23 05:18 03/08/23 05:55 Micro: Microbiology 03/04/23 20:27 Urine Culture - Final Urine,Clean Catch Escherichia coli 03/04/23 18:36 Gram Stain - Final Sputum - Expectorated Sputum Sputum Culture - Final 03/04/23 19:39 Blood Culture - Preliminary Blood 03/04/23 19:34 Blood Culture - Preliminary Blood A&P Assessment and plan (1) Acute hypoxemic respiratory failure: (2) NSTEMI (non-ST elevated myocardial infarction): (3) Systolic CHF: (4) Pleural effusion, right: (5) Left leg swelling: (6) Chest pain: Qualifiers: Chest pain type: unspecified Qualified Code(s): R07.9 - Chest pain, unspecified (7) Obesity: (8) Cellulitis, leg: Plan Acute hypoxic respiratory failure ? Likely secondary to systolic CHF, ? Cannot order CT angiogram of the chest to rule out pulmonary embolism, as patient cannot lie flat, D-dimer 1.83, venous ultrasound ordered negative for DVT, low probability ? Plan ? Fluid restrictions of 1000 cc, ? Place Zacarias catheter, Monitor urine output, ? Lasix 40 po twice daily, creatinine 1.5, urine output over 11 L, monitor creatinine this afternoon ? On heparin drip, ? sputum cultures, blood cultures ? coutinue bipap NSTEMI, with complaints of chest pain ? Cardiac risk factors include complaints of chest discomfort, ? Peripheral vascular disease, ? Poorly controlled type 2 diabetes mellitus -Concerns for type I NSTEMI versus type II ? Plan ? Serial EKGs, start troponins, telemetry monitoring, ? Aspirin, ? Statin?beta-crow, ? Heparin drip ?cardiology consulted, plan on angiogram ? Cardiac echo Systolic CHF ? Mildly dilated left ventricle. Severe diffuse hypokinesia of the LV apex. LV ejection fraction around 35 %.Grade III/IV diastolic dysfunction (restrictive filling pattern), severely elevated filling pressures. Mildly increased left atrial size. Mild to moderate mitral regurgitation. Thickened aortic valve. There is no pericardial effusion. Technically difficult study because of poor ultrasonic window. Right pleural effusion, ? Will consider ultrasound thoracocentesis, Left leg swelling, ? Multifactorial from CHF, concern for DVT, ? Ultrasound for DVT negative Left leg cellulitis,cefepime, switch to Zyvox UTI, E. coli, continue cefepime Type 2 diabetes mellitus, low-dose sliding scale, Right below-knee amputation, left TMA Full code chronic/heparin drip for DVT prophylaxis Attestations 2 Medical Necessity Statement*: patient requires hospitalization for chf, and diureses, leg cellultis, Diagnoses Acute hypoxemic respiratory failure J96.01 NSTEMI (non-ST elevated myocardial infarction) I21.4 Systolic CHF I50.20 Pleural effusion, right J90 Left leg swelling M79.89 Chest pain, unspecified type R07.9 Chest pain type: unspecified Obesity E66.9 Cellulitis, leg L03.119
[2023-03-08 16:40] LABS: Glucose Point of Care 310 mg/dL (70-110)
[2023-03-08 16:42] LABS: Partial Thromboplastin Time 53.1 SECONDS (23.9-36.7)
[2023-03-08 20:13] LABS: Anion Gap 16.5 (5-19); Blood Urea Nitrogen 34 mg/dL (6-20); Calcium 9.4 mg/dL (8.5-10.5); Carbon Dioxide 32 mmol/L (22-29); Chloride 92 mmol/L (98-107); Glomerular Filtration Rate 42.2 mL/min (90-130); Glucose 271 mg/dL (65-115); Osmolality Calculated 299 mOsm/kg (285-295); Potassium 4.5 mmol/L (3.5-5.1); Sodium 136 mmol/L (136-145)
--- NOTE | 2023-03-08 20:51 | PM.PN ---
Subjective Subjective: Patient is complaining of pain in the buttock area. Has no chest pain. Has the baseline shortness of breath. No fever or chills. Medications: Medication Review Details: Current Medications Acetaminophen (Acetaminophen 325 Mg Tablet) 650 mg PO Q6H PRN PRN Reason: Mild/Mod Pain Or Temp >/= 101 Last Admin: 03/05/23 17:35 Dose: 650 mg Al Hydrox/Mg Hydrox/Simethicone (Fepf-Myp-Jpykxijmt-Kimmie 30 Ml Udc) 30 ml PO Q15M PRN PRN Reason: INDIGESTION Al Hydrox/Mg Hydrox/Simethicone (Heeo-Gdc-Lcuitlyyo-Kimmie 30 Ml Udc) 30 ml PO Q15M PRN PRN Reason: INDIGESTION Alprazolam (Alprazolam 0.5 Mg Tablet) 0.25 mg PO TID PRN PRN Reason: ANXIETY Aspirin (Aspirin 81 Mg Ec Tablet) 81 mg PO DAILY [facility] Last Admin: 03/08/23 09:19 Dose: 81 mg Atorvastatin Calcium (Atorvastatin 40 Mg Tablet) 40 mg PO BEDTIME [facility] Last Admin: 03/07/23 20:31 Dose: 40 mg Atropine Sulfate (Atropine 1 Mg/Ml Sdv 1 Ml) 0.5 mg IVP PRN PRN PRN Reason: Symptomatic bradycardia Carvedilol (Carvedilol 3.125 Mg Tablet) 3.125 mg PO BID [facility] Last Admin: 03/08/23 17:22 Dose: 3.125 mg Citalopram Hydrobromide (Citalopram 20 Mg Tablet) 40 mg PO DAILY [facility] Last Admin: 03/08/23 09:19 Dose: 40 mg Clopidogrel Bisulfate (Clopidogrel 75 Mg Tablet) 75 mg PO DAILY [facility] Last Admin: 03/08/23 09:19 Dose: 75 mg Dextrose (Dextrose 50% Syringe 50 Ml) 25 ml IVP ONCE PRN; Protocol PRN Reason: hypoglycemia protocol Dextrose (Dextrose 50% Syringe 50 Ml) 50 ml IVP PRN PRN; Protocol PRN Reason: hypoglycemia protocol Furosemide (Furosemide 40 Mg Tablet) 40 mg PO BID@08,16 [facility] Last Admin: 03/08/23 17:22 Dose: 40 mg Gabapentin (Gabapentin 300 Mg Capsule) 1,800 mg PO Q12H [facility] Last Admin: 03/08/23 09:18 Dose: 1,800 mg Heparin Sodium (Porcine) (Heparin 5,000 Unit/Ml Inj 1 Ml) 0 unit IV PRN PRN; Protocol PRN Reason: Heparin weight-base protocol Last Admin: 03/05/23 18:58 Dose: 2,400 unit Dextrose (D5w) 500 mls @ 0 mls/hr IV ONCE PRN; Protocol PRN Reason: Adult Acute Hypoglycemia Prot Heparin Sodium/Sodium Chloride (Heparin Drip) 25,000 unit in 500 mls @ 0 mls/hr IV .Q0M RENATO; Protocol Last Titration: 03/08/23 19:16 Dose: 17.27 unit/kg/hr, 42 mls/hr Ceftriaxone Sodium 1,000 mg/ (Sodium Chloride) 50 mls @ 100 mls/hr IV Q24H [facility]; Protocol Last Infusion: 03/08/23 11:16 Dose: Infused Linezolid (Zyvox Premix) 600 mg in 300 mls @ 300 mls/hr IV Q12H [facility]; Protocol Last Infusion: 03/08/23 11:15 Dose: Infused Insulin Glargine (Insulin Glargine 100 Units/1 Ml) 10 unit SUBCUT Q24H [facility] Last Admin: 03/08/23 10:09 Dose: 10 unit Insulin Human Lispro (Insulin Lispro 100 Unit/1 Ml) 0 unit SUBCUT TIDWM [facility]; Protocol Last Admin: 03/08/23 17:22 Dose: 10 unit Magnesium Hydroxide (Magnesium Hydroxide 30 Ml Udc) 30 ml PO DAILY PRN PRN Reason: CONSTIPATION Magnesium Hydroxide (Magnesium Hydroxide 30 Ml Udc) 30 ml PO DAILY PRN PRN Reason: CONSTIPATION Magnesium Lactate (Magnesium Lactate 84 Mg Tablet) 84 mg PO DAILY [facility] Last Admin: 03/08/23 09:19 Dose: 84 mg Morphine Sulfate (Morphine 4 Mg/Ml Sdv 1 Ml) 2 mg IVP Q4H PRN PRN Reason: SEVERE PAIN Last Admin: 03/07/23 20:37 Dose: 2 mg Naloxone HCl (Naloxone 0.4 Mg/Ml Sdv) 0.1 mg IVP Q2M PRN PRN Reason: OPIATERV Nicotine (Nicotine 21 Mg Patch) 1 patch TRANSDERMA DAILY [facility] Last Admin: 03/08/23 10:07 Dose: 1 patch Nitroglycerin (Nitroglycerin 0.4 Mg Sublingual Tablet) 0.4 mg SUBLINGUAL Q5M PRN PRN Reason: CHEST PAIN Nitroglycerin (Nitroglycerin 0.4 Mg Sublingual Tablet) 0.4 mg SUBLINGUAL Q5M PRN PRN Reason: CHEST PAIN Ondansetron HCl (Ondansetron 2 Mg/Ml Sdv 2 Ml) 4 mg IVP Q8H PRN PRN Reason: vomiting, or N/V if npo Pantoprazole Sodium (Pantoprazole 40 Mg Sdv) 40 mg IVP Q24H [facility] Last Admin: 03/07/23 20:38 Dose: 40 mg Temazepam (Temazepam 15 Mg Capsule) 15 mg PO BEDTIME PRN PRN Reason: INSOMNIA Last Admin: 03/08/23 02:35 Dose: 15 mg Vitals/I&O/Wt Last Vital Signs Temp 98.2 F 03/08/23 20:00 Pulse 81 03/08/23 20:00 Resp 185 H 03/08/23 20:00 BP 148/89 03/08/23 20:00 Pulse Ox 95 03/08/23 20:00 O2 Del Method Aerosol Mask 03/08/23 20:00 O2 Flow Rate 2 03/08/23 07:39 FiO2 30 03/08/23 03:46 03/08/23 03/08/23 03/08/23 06:59 14:59 22:59 Intake Total 500 / 2090 850 / 850 394 / 1244 Output Total 1250 / 4770 1550 / 1550 1200 / 2750 Balance -750 / -2680 -700 / -700 -806 / -1506 Weight last 48 hrs Weight 264 lb Weight 271 lb 9.6 oz Physical Exam Narrative: GENERAL: The patient is alert and oriented times three. Not in any acute distress. HEENT: No significant pallor, icterus or lymphadenopathy.Oral cavity: There are no mucous membrane lesions. NECK: Trachea appears to be central. No masses noted. No JVD or thyromegaly appreciated. RESPIRATORY: Chest is symmetrical. No intercostals muscle retraction or any accessory muscle activation. There is no chest wall tenderness. Breath sounds are heard bilaterally. No rales or rhonchi heard. No evidence of any consolidation. BREASTS: Deferred. HEART: The heart sounds are normal. No S3 or S4. No significant murmurs. No pericardial rub ABDOMEN: No vessel pulsations or distention. No tenderness. No organomegaly appreciated. Bowel sounds are normally heard. : Deferred. RECTAL: Deferred. LYMPHATIC: No lymphadenopathy noted in the neck. EXTREMITIES: Diffuse erythema of the left lower extremity. 1-2+ edema present. The pulses difficult to palpate. Both the dorsalis pedis and posterior pulses are present with the Doppler. MUSCULOSKELETAL: No acute joint deformities. Ampum-ncb-vpdk amputation on the right side and transmetatarsal amputation on the left side SKIN: There are no significant rashes or ecchymosis NEUROPSYCHIATRIC: The patient is alert and oriented x3. Appears to be in a good mood. No tremors or rigidity noted. Urinary Catheter Management: Zacarias: Cath Placed During This Visit: yes Reason for Continuing Indwelling Catheter: Accurate Measurement of Urinary Output in Critically Ill Patients Urinary Catheter Date of Insertion: 03/04/23 Urinary Catheter Time of Insertion: 20:31 Data 03/08/23 05:18 03/08/23 19:17 A&P Assessment and plan (1) Elevated troponin: May continue on the current medications. Patient requires a cardiac catheterization to further evaluate her coronary status. I will discuss with the nephrology regarding the appropriate time to do this procedure. Because of the patient's high risk of developing contrast-induced nephropathy, need to take all the precautions, before proceeding with the procedure. (2) CHF (congestive heart failure): May continue on the current medications. Carefully adjust the dose of Lasix. Qualifiers: Heart failure chronicity: unspecified Heart failure type: unspecified Qualified Code(s): I50.9 - Heart failure, unspecified (3) Chest pain: Patient has not had any chest pain. May continue on the current medications for the time being. Qualifiers: Chest pain type: unspecified Qualified Code(s): R07.9 - Chest pain, unspecified (4) Aortic disease: Patient was found to have severe stenosis of the distal aorta with ulceration by aortogram in 2019. Status post percutaneous intervention? Stent graft. Still need to review the intervention report from [facility] (5) Type 2 diabetes mellitus: The blood sugar seems to be slowly getting under control. Qualifiers: Diabetes mellitus retirement insulin use: with buttermaker continuous churn use Diabetes mellitus complication status: with neurologic complications Diabetes mellitus complication detail: with polyneuropathy Qualified Code(s): E11.42 - Type 2 diabetes mellitus with diabetic polyneuropathy; Z79.4 - custodial (current) use of insulin (6) Chronic kidney disease (CKD): The BUN/creatinine is getting better. Qualifiers: Chronic kidney disease stage: stage 2 (mild) Qualified Code(s): N18.2 - Chronic kidney disease, stage 2 (mild) Plan Continue on the current management for the time being. After discussing with nephrology and the primary will decide on the appropriate timing of the angiogram Attestations Medical Necessity Statement*: Patient requires continued hospital stay for close monitoring and further management Coding Level of Care Code 75188 Diagnoses Elevated troponin R79.89 Congestive heart failure, unspecified HF chronicity, unspecified heart failure type I50.9 Heart failure chronicity: unspecified Heart failure type: unspecified Chest pain, unspecified type R07.9 Chest pain type: unspecified Aortic disease I77.9 Type 2 diabetes mellitus with diabetic polyneuropathy, with long-term current use of insulin E11.42; Z79.4 Diabetes mellitus retirement insulin use: with buttermaker continuous churn use Diabetes mellitus complication status: with neurologic complications Diabetes mellitus complication detail: with polyneuropathy Stage 2 chronic kidney disease N18.2 Chronic kidney disease stage: stage 2 (mild)
[2023-03-08] MEDS: pantoprazole 40 mg SDV IVP (21:00)
[2023-03-08] MEDS: atorvastatin 40 mg Tablet PO (21:00)
[2023-03-08 21:40] LABS: Glucose Point of Care 217 mg/dL (70-110)
--- NOTE | 2023-03-08 23:29 | PC.NURSE ---
Spoke with regarding patient on heparin gtt but developed a nosebleed. Hospitalist currently going to attempt nasal packing due to uncontrolled bleeding. said ok to stop heparin gtt now. He will look at starting patient on something in am for VTE prophylaxis but not now.
[2023-03-08] MEDS: morphine 4 mg/mL SDV 1 mL 2 MG IVP (23:35)
--- NOTE | 2023-03-08 23:54 | PM.MISC ---
Miscellaneous Note Purpose of Documentation: Epistaxis Note: Called by Rn for epistaxis B/L nostrils, left > right, RN had placed pressure and packing without any improvement in epistaxis for over 20 min. Rhino rocket was then placed into the left notsril, cuff inflated, reassesed after 10 minutes - bleeding starting to improve, Slow ooze noted out of right nostril but otherwise overall improving. Afrin nasal spray ordered for B/L nostrils. Patient does not have h/o recurrent nose bleeds. Vitals stable at time of event. BP 148/89.Tolerated packing. c/o expected level of discomfort in nares. Heparin drip discontinued given profuse nosebleed , has been on > 48 hrs at this time; cardiology aware. Added antibiotic ppx with Augmentin po
[2023-03-09] VITALS (13 sets, daily range): BP systolic 123–156; BP diastolic 70–84; PULSE 77–88; RESP 16–22; TEMP 36.4–36.7; O2SAT 91–98
[2023-03-09] MEDS: oxymetazoline 0.05% Nasal Spray 15 mL 2 SPRAY NOSTRIL-B (00:02)
[2023-03-09] MEDS: morphine 4 mg/mL SDV 1 mL 2 MG IVP ×3 (04:02→22:48)
--- NOTE | 2023-03-09 04:47 | PC.NURSE ---
Patient having severe nose bleed. Pressure held to bridge of nose for over 20 minutes with no results. Heparin gtt paused and Dr Mcfadden notified, Dr came to room and placed rhino rocket in patient left nostril and Afrin was administered to both nostrils. Bleeding subsided for aprox. 20-30 minutes. Rhino rocket began to slip out of nostril and bleeding continues. Dr Echevarria was notified per heparin gtt and discontinued medication. Dr Mcfadden was notified that bleeding continued and placed another rhino rocket but did not stay in nostril. Dr stephens used large Q-tip soaked in afrin. Bleeding continued, Dr mcfadden and Dr Macedo came to patient room and Dr Macedo placed a surgical nasal packing into left nostril and bleeding has so far ceased. Clear drainage tinged pink continues to drain at this time.
[2023-03-09 06:30] LABS: Basophils % 0.5 %; Eosinophils # 0.4 10^3/uL (0.0-0.8); Eosinophils % 4.7 %; Hematocrit 33.9 % (36-47); Lymphocytes # 1.6 10^3/uL (0.8-4.8); Lymphocytes % 20.2 %; Mean Corpuscular HGB Conc 31.6 g/dL (30-55); Mean Corpuscular Hemoglobin 28.8 pg (27-33); Mean Corpuscular Volume 91.1 fl (85-98); Mean Platelet Volume 11.1 fL (7.4-10.4); Monocytes # 0.6 10^3/uL (0.2-0.9); Neutrophils # 5.33 10^3/uL (1.8-7.7); Neutrophils % 66.6 %; Nucleated Red Blood Cells % 0 %; Platelet Count 170 10^3/cmm (157-399); Red Blood Count 3.72 10^6/uL (3.85-5.65); Red Cell Distribution Width 15.4 % (12.1-15.1); White Blood Count 8.01 10^3/uL (3.29-11.43)
[2023-03-09 06:49] LABS: Magnesium 1.6 mg/dL (1.7-2.3); Phosphorus 3.5 mg/dL (2.5-4.5)
[2023-03-09 06:59] LABS: Anion Gap 14.3 (5-19); Blood Urea Nitrogen 37 mg/dL (6-20); Calcium 9.8 mg/dL (8.5-10.5); Carbon Dioxide 34 mmol/L (22-29); Chloride 95 mmol/L (98-107); Creatinine Clr Calc Pharmacy 74.3618; Glomerular Filtration Rate 51.2 mL/min (90-130); Glucose 195 mg/dL (65-115); NT Pro B Type Natriuretic Pept 8603 pg/mL (0-125); Osmolality Calculated 302 mOsm/kg (285-295); Potassium 4.3 mmol/L (3.5-5.1); Sodium 139 mmol/L (136-145)
[2023-03-09 07:03] LABS: Glucose Point of Care 208 mg/dL (70-110)
[2023-03-09] MEDS: cefTRIAXone 1,000 MG in sodium chloride 0.9% (plus) 50 ML 100 MG IV (08:40)
[2023-03-09] MEDS: citalopram 20 mg Tablet 40 MG PO (08:40)
[2023-03-09] MEDS: aspirin 81 mg EC Tablet PO (08:41)
[2023-03-09] MEDS: insulin lispro 100 unit/1 mL SUBCUT ×3 (08:41→17:36)
[2023-03-09] MEDS: insulin glargine 100 units/1 mL 10 UNIT SUBCUT (08:41)
[2023-03-09] MEDS: FUROsemide 40 mg Tablet PO ×2 (08:42→17:17)
[2023-03-09] MEDS: magnesium lactate 84 mg Tablet PO (08:42)
[2023-03-09] MEDS: gabapentin 300 mg Capsule 1800 MG PO ×2 (08:42→21:43)
[2023-03-09] MEDS: clopidogrel 75 mg Tablet PO (08:42)
[2023-03-09] MEDS: carvedilol 3.125 mg Tablet PO ×2 (08:42→17:17)
[2023-03-09] MEDS: nicotine 21 mg Patch 1 PATCH TRANSDERMA (08:43)
[2023-03-09] MEDS: linezolid premix 600 MG/300 ML PREMIX 300 MG IV ×2 (09:49→21:47)
[2023-03-09 11:04] LABS: Glucose Point of Care 291 mg/dL (70-110)
--- NOTE | 2023-03-09 13:57 | P.PN_ITS ---
Subjective 2 Subjective: Patient was seen this morning, she had a nosebleed overnight, she has a Rhino Rocket still in place, she tells me that it is bothering her, denies any chest pain, no palpitations, she is -11 L, still having shortness of breath intermittently, and 1+ pitting edema but overall improving, we discussed her coronary angiography, given her nosebleed, the concern would be if she had a cath that she needed aspirin and Plavix this could exacerbate her nasal bleed, but if her coronary angiography is absolutely needed, then we would have to go ahead and persist into the cath, however she does not have any chest pain, she reports, I had a detailed discussion with cardiology, as she remained chest pain-free, and overall she is clinically improving, she is going to need coronary angiography at some point, but for now we will hold off plan is to do a stress test tomorrow morning, Vitals/I&O/Wt Last Vital Signs Temp 97.9 F 03/09/23 12:00 Pulse 78 03/09/23 12:19 Resp 22 H 03/09/23 12:00 BP 135/72 03/09/23 12:00 Pulse Ox 94 03/09/23 12:19 O2 Del Method Oxymask 03/09/23 12:19 O2 Flow Rate 2 03/09/23 12:19 FiO2 30 03/08/23 03:46 03/08/23 03/09/23 03/09/23 22:59 06:59 14:59 Intake Total 541.7 / 1391.7 600 / 1991.7 590 / 590 Output Total 1500 / 3050 1550 / 1550 Balance -958.3 / -1658.3 600 / -1058.3 -960 / -960 Weight last 48 hrs Weight 116.573 kg Weight 119.748 kg Physical Exam 2 Const: COMMON NORMALS: no acute distress and patient oriented x3 Resp: COMMON NORMALS: normal respiratory effort, No retractions, No use of accessory muscles and clear to auscultation bilaterally AUSCULTATION: clear to auscultation bilaterally Cardio: COMMON NORMALS: regular rate, regular rhythm, S1 normal heart sound present and S2 normal heart sound present RATE: regular rate RHYTHM: r egular rhythm HEART SOUNDS: S1 normal heart sound present and S2 normal heart sound present GI: COMMON NORMALS: Normal to inspection, nondistended, normoactive bowel sounds present and non-tender Extremity: NARRATIVE EXTREMITY EXAM: 1+ pitting edema Neuro: COMMON NORMALS: patient oriented x3 Psych: COMMON NORMALS: mental status grossly normal Urinary Catheter Management: Zacarias: Cath Placed During This Visit: yes Reason for Continuing Indwelling Catheter: Accurate Measurement of Urinary Output in Critically Ill Patients Urinary Catheter Date of Insertion: 03/04/23 Urinary Catheter Time of Insertion: 20:31 Data 03/09/23 06:04 03/09/23 06:04 A&P Assessment and plan (1) Acute hypoxemic respiratory failure: (2) NSTEMI (non-ST elevated myocardial infarction): (3) Systolic CHF: (4) Pleural effusion, right: (5) Left leg swelling: (6) Chest pain: Qualifiers: Chest pain type: unspecified Qualified Code(s): R07.9 - Chest pain, unspecified (7) Obesity: (8) Cellulitis, leg: Plan Acute hypoxic respiratory failure ? Likely secondary to systolic CHF, ? Cannot order CT angiogram of the chest to rule out pulmonary embolism, as patient cannot lie flat, D-dimer 1.83, venous ultrasound ordered negative for DVT, low probability ? Plan ? Fluid restrictions of 1000 cc, ? Place Zacarias catheter, Monitor urine output, ? Lasix 40 po twice daily, creatinine 1.1, urine output over 11 L, monitor creatinine ? Completed heparin drip for 48 hours, currently stopped as patient has has had significant nosebleed ? sputum cultures, blood cultures ? coutinue bipap NSTEMI, with complaints of chest pain ? Cardiac risk factors include complaints of chest discomfort, ? Peripheral vascular disease, ? Poorly controlled type 2 diabetes mellitus -Concerns for type I NSTEMI versus type II ? Plan ? Serial EKGs, start troponins, telemetry monitoring, ? Aspirin, Plavix ? Statin?beta-crow, ? Heparin drip stopped due to significant nosebleed ?cardiology consulted, plan is for stress test tomorrow ? Cardiac echo Systolic CHF ? Mildly dilated left ventricle. Severe diffuse hypokinesia of the LV apex. LV ejection fraction around 35 %.Grade III/IV diastolic dysfunction (restrictive filling pattern), severely elevated filling pressures. Mildly increased left atrial size. Mild to moderate mitral regurgitation. Thickened aortic valve. There is no pericardial effusion. Technically difficult study because of poor ultrasonic window. Right pleural effusion, ? Continue to monitor Left leg swelling, ? Multifactorial from CHF, concern for DVT, ? Ultrasound for DVT negative Left leg cellulitis,cefepime,Zyvox UTI, E. coli, continue cefepime Type 2 diabetes mellitus, low-dose sliding scale, Right below-knee amputation, left TMA Full code DVT prophylaxis, heparin currently on hold due to significant nosebleed Patient was seen this morning, she had a nosebleed overnight, she has a Rhino Rocket still in place, she tells me that it is bothering her, denies any chest pain, no palpitations, she is -11 L, still having shortness of breath intermittently, and 1+ pitting edema but overall improving, we discussed her coronary angiography, given her nosebleed, the concern would be if she had a cath that she needed aspirin and Plavix this could exacerbate her nasal bleed, but if her coronary angiography is absolutely needed, then we would have to go ahead and persist into the cath, however she does not have any chest pain, she reports, I had a detailed discussion with cardiology, as she remained chest pain-free, and overall she is clinically improving, she is going to need coronary angiography at some point, but for now we will hold off plan is to do a stress test tomorrow morning, Attestations 2 Medical Necessity Statement*: Patient requires hospitalization for acute hypoxic respiratory failure, NSTEMI, systolic CHF, requiring diuresis, stress test tomorrow morning, left leg cellulitis Diagnoses Acute hypoxemic respiratory failure J96.01 NSTEMI (non-ST elevated myocardial infarction) I21.4 Systolic CHF I50.20 Pleural effusion, right J90 Left leg swelling M79.89 Chest pain, unspecified type R07.9 Chest pain type: unspecified Obesity E66.9 Cellulitis, leg L03.119
--- NOTE | 2023-03-09 13:59 | ECG_ITS ---
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 Interpretive Statements NAME OF STUDY: LEXISCAN SESTAMIBI STRESS TEST INDICATION: Chest Pain PROCEDURE: At the baseline, the EKG revealed normal sinus rhythm with a poor R wave progression. Features of old anterior myocardial infarction. Nonspecific T wave changes in the anterolateral leads. The baseline heart was 75 bpm with a blood pressue of 122/72 mm of Hg Lexiscan was infused over a period of 20 seconds. A total of 0.4 milligrams of Lexiscan was infused. The stress phase was continued for a total of 5 minutes. Heart rate at the end of the stress phase was 82 bpm with a blood pressure 124/60 mm of Hg. The EKG at the peak infusion revealed no significant changes. Sestamibi was injected 20 seconds after the Lexiscan infusion. Heart rate at the end of the recovery phase was 82 bpm with a blood pressure of 117/67 mm of Hg. CONCLUSION: 1. No significant EKG changes with the LexiScan infusion 2. No LexiScan induced chest pain or cardiac arrhythmia 3. Normal blood pressure and heart rate response 4. Sestamibi/sestamibi perfusion scan pending; see separate report. Electronically Signed On 03-12-2023 18:31:55 [employer] by Oscar Echevarria M.D. [email or web address]
--- NOTE | 2023-03-09 16:15 | PC.NURSE ---
Provider is called about the rhindo-rocket that she had placed last night. Patient would like it removed. Provider said that it needs to stay in for 24 hours. Provider also ordered hydrocodone 5/325mg PO BID PRN pain. Order entered.
[2023-03-09] MEDS: HYDROcodone-acetaminophen 5-325 mg Tablet 1 TAB PO (17:17)
[2023-03-09 17:49] LABS: Glucose Point of Care 287 mg/dL (70-110)
--- NOTE | 2023-03-09 19:07 | P.PN_ITS ---
Subjective 2 Subjective: The patient had nosebleed last night. For this reason, the heparin was discontinued. Currently she has a Rhino Rocket in the left nostril. She has no active bleeding but she is having the discomfort. Denies any chest pain or shortness of breath. Vitals remained stable. Medications: Medication Review Details: Current Medications Acetaminophen (Acetaminophen 325 Mg Tablet) 650 mg PO Q6H PRN PRN Reason: Mild/Mod Pain Or Temp >/= 101 Last Admin: 03/05/23 17:35 Dose: 650 mg Hydrocodone Bitart/Acetaminophen (Hydrocodone-Acetaminophen 5-325 Mg Tablet) 1 tab PO BID PRN PRN Reason: MODERATE PAIN Last Admin: 03/09/23 17:17 Dose: 1 tab Al Hydrox/Mg Hydrox/Simethicone (Pvou-Uky-Bbkmhwfnk-Kimmie 30 Ml Udc) 30 ml PO Q15M PRN PRN Reason: INDIGESTION Al Hydrox/Mg Hydrox/Simethicone (Omsi-Umn-Utfddrenc-Kimmie 30 Ml Udc) 30 ml PO Q15M PRN PRN Reason: INDIGESTION Alprazolam (Alprazolam 0.5 Mg Tablet) 0.25 mg PO TID PRN PRN Reason: ANXIETY Aspirin (Aspirin 81 Mg Ec Tablet) 81 mg PO DAILY [facility] Last Admin: 03/09/23 08:41 Dose: 81 mg Atorvastatin Calcium (Atorvastatin 40 Mg Tablet) 40 mg PO BEDTIME [facility] Last Admin: 03/08/23 21:00 Dose: 40 mg Atropine Sulfate (Atropine 1 Mg/Ml Sdv 1 Ml) 0.5 mg IVP PRN PRN PRN Reason: Symptomatic bradycardia Carvedilol (Carvedilol 3.125 Mg Tablet) 3.125 mg PO BID [facility] Last Admin: 03/09/23 17:17 Dose: 3.125 mg Citalopram Hydrobromide (Citalopram 20 Mg Tablet) 40 mg PO DAILY [facility] Last Admin: 03/09/23 08:40 Dose: 40 mg Clopidogrel Bisulfate (Clopidogrel 75 Mg Tablet) 75 mg PO DAILY [facility] Last Admin: 03/09/23 08:42 Dose: 75 mg Dextrose (Dextrose 50% Syringe 50 Ml) 25 ml IVP ONCE PRN; Protocol PRN Reason: hypoglycemia protocol Dextrose (Dextrose 50% Syringe 50 Ml) 50 ml IVP PRN PRN; Protocol PRN Reason: hypoglycemia protocol Furosemide (Furosemide 40 Mg Tablet) 40 mg PO BID@08,16 [facility] Last Admin: 03/09/23 17:17 Dose: 40 mg Gabapentin (Gabapentin 300 Mg Capsule) 1,800 mg PO Q12H [facility] Last Admin: 03/09/23 08:42 Dose: 1,800 mg Dextrose (D5w) 500 mls @ 0 mls/hr IV ONCE PRN; Protocol PRN Reason: Adult Acute Hypoglycemia Prot Ceftriaxone Sodium 1,000 mg/ (Sodium Chloride) 50 mls @ 100 mls/hr IV Q24H [facility]; Protocol Last Infusion: 03/09/23 09:47 Dose: Infused Linezolid (Zyvox Premix) 600 mg in 300 mls @ 300 mls/hr IV Q12H [facility]; Protocol Last Infusion: 03/09/23 11:53 Dose: Infused Insulin Glargine (Insulin Glargine 100 Units/1 Ml) 10 unit SUBCUT Q24H [facility] Last Admin: 03/09/23 08:41 Dose: 10 unit Insulin Human Lispro (Insulin Lispro 100 Unit/1 Ml) 0 unit SUBCUT TIDWM [facility]; Protocol Last Admin: 03/09/23 17:36 Dose: 8 unit Magnesium Hydroxide (Magnesium Hydroxide 30 Ml Udc) 30 ml PO DAILY PRN PRN Reason: CONSTIPATION Magnesium Hydroxide (Magnesium Hydroxide 30 Ml Udc) 30 ml PO DAILY PRN PRN Reason: CONSTIPATION Magnesium Lactate (Magnesium Lactate 84 Mg Tablet) 84 mg PO DAILY [facility] Last Admin: 03/09/23 08:42 Dose: 84 mg Morphine Sulfate (Morphine 4 Mg/Ml Sdv 1 Ml) 2 mg IVP Q4H PRN PRN Reason: SEVERE PAIN Last Admin: 03/09/23 10:01 Dose: 2 mg Naloxone HCl (Naloxone 0.4 Mg/Ml Sdv) 0.1 mg IVP Q2M PRN PRN Reason: OPIATERV Nicotine (Nicotine 21 Mg Patch) 1 patch TRANSDERMA DAILY [facility] Last Admin: 03/09/23 08:43 Dose: 1 patch Nitroglycerin (Nitroglycerin 0.4 Mg Sublingual Tablet) 0.4 mg SUBLINGUAL Q5M PRN PRN Reason: CHEST PAIN Nitroglycerin (Nitroglycerin 0.4 Mg Sublingual Tablet) 0.4 mg SUBLINGUAL Q5M PRN PRN Reason: CHEST PAIN Ondansetron HCl (Ondansetron 2 Mg/Ml Sdv 2 Ml) 4 mg IVP Q8H PRN PRN Reason: vomiting, or N/V if npo Pantoprazole Sodium (Pantoprazole 40 Mg Sdv) 40 mg IVP Q24H [facility] Last Admin: 03/08/23 21:00 Dose: 40 mg Vitals/I&O/Wt Last Vital Signs Temp 97.9 F 03/09/23 16:22 Pulse 79 03/09/23 18:19 Resp 20 H 03/09/23 16:22 BP 142/75 03/09/23 16:22 Pulse Ox 94 03/09/23 18:19 O2 Del Method Oxymask 03/09/23 18:19 O2 Flow Rate 3 03/09/23 18:19 FiO2 30 03/08/23 03:46 03/09/23 03/09/23 03/09/23 06:59 14:59 22:59 Intake Total 600 / 1991.7 590 / 590 Output Total 1550 / 1550 1375 / 2925 Balance 600 / -1058.3 -960 / -960 -1375 / -2335 Weight last 48 hrs Weight 257 lb Weight 264 lb Physical Exam 2 Narrative: GENERAL: The patient is alert and oriented times three. Not in any acute distress. HEENT: No significant pallor, icterus or lymphadenopathy.Oral cavity: There are no mucous membrane lesions. NECK: Trachea appears to be central. No masses noted. No JVD or thyromegaly appreciated. RESPIRATORY: Chest is symmetrical. No intercostals muscle retraction or any accessory muscle activation. There is no chest wall tenderness. Breath sounds are heard bilaterally. No rales or rhonchi heard. No evidence of any consolidation. BREASTS: Deferred. HEART: The heart sounds are normal. No S3 or S4. No significant murmurs. No pericardial rub ABDOMEN: No vessel pulsations or distention. No tenderness. No organomegaly appreciated. Bowel sounds are normally heard. : Deferred. RECTAL: Deferred. LYMPHATIC: No lymphadenopathy noted in the neck. EXTREMITIES: Diffuse erythema of the left lower extremity. 1-2+ edema present. The pulses difficult to palpate. Both the dorsalis pedis and posterior pulses are present with the Doppler. MUSCULOSKELETAL: No acute joint deformities. 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 Appears to be in a good mood. No tremors or rigidity noted. Urinary Catheter Management: Zacarias: Cath Placed During This Visit: yes Reason for Continuing Indwelling Catheter: Accurate Measurement of Urinary Output in Critically Ill Patients Urinary Catheter Date of Insertion: 03/04/23 Urinary Catheter Time of Insertion: 20:31 Data 03/09/23 06:04 03/09/23 06:04 Other Labs: Laboratory Last Values WBC 8.01 10^3/uL (3.29-11.43) 03/09/23 06:04 RBC 3.72 10^6/uL (3.85-5.65) L 03/09/23 06:04 Hgb 10.70 g/dL (11.27-16.99) L 03/09/23 06:04 Hct 33.9 % (36-47) L 03/09/23 06:04 MCV 91.1 fl (85-98) 03/09/23 06:04 MCH 28.8 pg (27-33) 03/09/23 06:04 MCHC 31.6 g/dL (30-55) 03/09/23 06:04 RDW 15.4 % (12.1-15.1) H 03/09/23 06:04 Plt Count 170 10^3/cmm (157-399) 03/09/23 06:04 MPV 11.1 fL (7.4-10.4) H 03/09/23 06:04 Neut % (Auto) 66.6 % 03/09/23 06:04 Lymph % (Auto) 20.2 % 03/09/23 06:04 Allen % (Auto) 7.0 % 03/09/23 06:04 Eos % (Auto) 4.7 % 03/09/23 06:04 Baso % (Auto) 0.5 % 03/09/23 06:04 Neut # (Auto) 5.33 10^3/uL (1.8-7.7) 03/09/23 06:04 Lymph # (Auto) 1.6 10^3/uL (0.8-4.8) 03/09/23 06:04 Allen # (Auto) 0.6 10^3/uL (0.2-0.9) 03/09/23 06:04 Eos # (Auto) 0.4 10^3/uL (0.0-0.8) 03/09/23 06:04 Baso # (Auto) 0.0 10^3/uL (0.0-0.1) 03/09/23 06:04 Nucleated RBC % (auto) 0 % 03/09/23 06:04 Nucleated RBCs # 0.0 /100WBC 03/09/23 06:04 PT 14.30 SECONDS (12.1-14.9) 03/04/23 14:54 INR 1.08 (0.8-1.2) 03/04/23 14:54 APTT 53.1 SECONDS (23.9-36.7) H 03/08/23 16:11 D-Dimer 1.83 ug/mLFEU (0-0.59) H 03/04/23 20:55 Specimen Type Arterial 03/05/23 08:45 Sample Site Radial, right 03/05/23 08:45 ABG pH 7.39 (7.35-7.45) 03/05/23 08:45 ABG pCO2 52.2 mmHg (35-45) H 03/05/23 08:45 ABG pO2 103.0 mmHg (80.0-100.0) H 03/05/23 08:45 ABG PO2/FiO2 Ratio 0 03/05/23 08:45 ABG HCO3 31.3 mmol/L (22-26) H 03/05/23 08:45 ABG O2 Saturation 99.4 03/05/23 08:45 ABG Base Excess 5.1 mmol/L (-2.0-2.0) H 03/05/23 08:45 Adair Test Pos 03/05/23 08:45 A-a O2 Gradient 6.1 mmHg (5-10) 03/05/23 08:45 Hematocrit 36.7 % (37-47) L 03/05/23 08:45 Hgb O2 Saturation 95.7 % (95-100) 03/05/23 08:45 Carboxyhemoglobin 3.3 %THgb (0.4-20.1) 03/05/23 08:45 Methemoglobin 0.5 % (0.4-1.5) 03/05/23 08:45 Total Hemoglobin 12.0 g/dL (12-16) 03/05/23 08:45 Sodium 140.0 mmol/L (131-143) 03/05/23 08:45 Potassium 4.2 mmol/L (3.5-5.0) 03/05/23 08:45 Glucose 145.0 mg/dL (70-115) H 03/05/23 08:45 Ionized Calcium 1.2 mmol/L (1.1-1.4) 03/05/23 08:45 O2 Delivery Device Bipap 03/05/23 08:45 O2 Liters/Min 2.0 % 03/04/23 17:32 FiO2 30.0 % 03/05/23 08:45 Ssn/Ssbn Weapons Equipment Operator ID Broma 03/05/23 08:45 Sodium 139 mmol/L (136-145) 03/09/23 06:04 Potassium 4.3 mmol/L (3.5-5.1) 03/09/23 06:04 Chloride 95 mmol/L (98-107) L 03/09/23 06:04 Carbon Dioxide 34 mmol/L (22-29) H 03/09/23 06:04 Anion Gap 14.3 (5-19) 03/09/23 06:04 BUN 37 mg/dL (6-20) H 03/09/23 06:04 Creatinine 1.1 mg/dL (0.5-0.9) H 03/09/23 06:04 GFR Calculation 51.2 mL/min (90-130) L 03/09/23 06:04 Glucose 195 mg/dL (65-115) H 03/09/23 06:04 POC Glucose 287 mg/dL (70-110) H 03/09/23 17:13 Estimat Average Glucose 189 03/04/23 20:55 Hemoglobin A1c 8.2 % (4.0-6.0) H 03/04/23 20:55 Calculated Osmolality 302 mOsm/kg (285-295) H 03/09/23 06:04 Lactic Acid 1.7 mmol/L (0.5-2.2) 03/04/23 14:54 Calcium 9.8 mg/dL (8.5-10.5) 03/09/23 06:04 Phosphorus 3.5 mg/dL (2.5-4.5) 03/09/23 06:04 Magnesium 1.6 mg/dL (1.7-2.3) L 03/09/23 06:04 Total Bilirubin 0.2 mg/dL (0.15-1.2) 03/07/23 02:49 AST 7 U/L (0-32) 03/07/23 02:49 ALT < 5 U/L (0-33) 03/07/23 02:49 Alkaline Phosphatase 116 U/L (35-105) H 03/07/23 02:49 Troponin T Baseline 164 ng/L (0-10) H* 03/04/23 14:54 Troponin T 120 Minute 165.4 ng/L (0-10) H 03/04/23 17:14 Delta Troponin T 1.4 ABS# (0-10) 03/04/23 17:14 Troponin T Hi Sens 6Hr 173.0 ng/L (0-10) H 03/04/23 20:55 Troponin T Hi Sens 6Hr Delta 9.0 ng/L (0-12) 03/04/23 20:55 C-Reactive Protein 8.0 mg/L (0.0-4.9) H 03/09/23 06:04 NT-Pro-B Natriuret Pep 8603 pg/mL (0-125) H 03/09/23 06:04 Total Protein 7.1 g/dL (6.6-8.7) 03/07/23 02:49 Albumin 3.4 g/dL (3.5-5.2) L 03/07/23 02:49 Globulin 3.7 g/dL (1.3-4.6) 03/07/23 02:49 Triglycerides 196 mg/dL (0-150) H 03/04/23 20:55 Cholesterol 147 mg/dL (0-200) 03/04/23 20:55 LDL Cholesterol, Calc 69 mg/dL (50-129) 03/04/23 20:55 HDL Cholesterol 39 mg/dL (60-100) L 03/04/23 20:55 LDL/HDL Ratio 1.77 RATIO (0.00-3.22) 03/04/23 20:55 Cholesterol/HDL Ratio 3.77 mg/dL (0.0-4.40) 03/04/23 20:55 Procalcitonin 0.20 ng/mL (0-0.5) 03/04/23 20:55 TSH 3.01 uIU/mL (0.27-4.20) 03/04/23 20:55 Urine Color Light yellow (Yellow) 03/04/23 20: Urine Appearance Clear (CLEAR) 03/04/23 20: Urine pH 5 (5-7) 03/04/23 20: Ur Specific Bradford 1.005 (1.005-1.030) 03/04/23 20: Urine Protein Trace (Negative) 03/04/23 20: Urine Glucose (UA) Norm (Normal) 03/04/23 20: Urine Ketones Negative (Negative) 03/04/23 20: Urine Blood Neg (Negative) 03/04/23 20: Urine Nitrate Negative (Negative) 03/04/23 20: Urine Bilirubin Neg (Negative) 03/04/23 20: Urine Urobilinogen Norm mg/dL (Negative) 03/04/23 20: Ur Leukocyte Esterase 2+ (Negative) H 03/04/23 20: Urine RBC 0-4 /hpf (0-2) H 03/04/23 20: Urine WBC 15-25 /hpf (0-5) H 03/04/23 20: Ur Squamous Epith Cells 0-4 /hpf (0-5) H 03/04/23 20: Amorphous Sediment Not Reportable 03/04/23 20: Urine Bacteria 2+ /hpf (NONE) H 03/04/23 20:27 Nasal Influ A H1 2009 PCR Not detected (NOT DETECT) 03/04/23 20: Vancomycin Trough 29.9 ug/mL (10-15) H* 03/06/23 20:05 Random Vancomycin 23.9 ug/mL (20.0-40.0) 03/07/23 07:34 Adenovirus (PCR) Not detected (NOT DETECT) 03/04/23 20: C. pneumoniae DNA (PCR) Not detected (NOT DETECT) 03/04/23 20: Coronavirus 229E (PCR) Not detected (NOT DETECT) 03/04/23 20: Human Metapneumovir PCR Not detected (NOT DETECT) 03/04/23 20: Influenza A (H1) PCR Not detected (NOT DETECT) 03/04/23 20:30 Influenza A (H3) PCR Not detected (NOT DETECT) 03/04/23 20:30 Influenza Type A (PCR) Not detected (NOT DETECT) 03/04/23 20:30 Influenza Type B (PCR) Not detected (NOT DETECT) 03/04/23 20:30 M. pneumoniae (PCR) Not detected (NOT DETECT) 03/04/23 20:30 Parainfluenza 1 (PCR) Not detected (NOT DETECT) 03/04/23 20:30 Parainfluenza 2 (PCR) Not detected (NOT DETECT) 03/04/23 20:30 Parainfluenza 3 (PCR) Not detected (NOT DETECT) 03/04/23 20:30 Parainfluenza 4 (PCR) Not detected (NOT DETECT) 03/04/23 20:30 RSV Type A (PCR) Not detected (NOT DETECT) 03/04/23 20:30 RSV Type B (PCR) Not detected (NOT DETECT) 03/04/23 20:30 Entero/Rhino (PCR) Not detected (NOT DETECT) 03/04/23 20:30 SARS-CoV-2 (PCR) Not detected (NOT DETECT) 03/04/23 20:30 A&P Assessment and plan (1) Elevated troponin: May continue on the current medications. Patient requires a cardiac catheterization to further evaluate her coronary status. I will discuss with the nephrology regarding the appropriate time to do this procedure. Because of the patient's high risk of developing contrast-induced nephropathy, need to take all the precautions, before proceeding with the procedure. With the current nosebleed, it might be appropriate to hold off on the angiogram for the time being. We may go ahead and do the Myocardial perfusion imaging to evaluate ischemic burden and then decide about the cardiac catheterization. (2) CHF (congestive heart failure): May continue on the current medications. Continue to adjust the dose of the Lasix. Qualifiers: Heart failure chronicity: unspecified Heart failure type: unspecified Qualified Code(s): I50.9 - Heart failure, unspecified (3) Chest pain: Patient has no recurrence of chest pain. Will continue on the current medication for the time being Qualifiers: Chest pain type: unspecified Qualified Code(s): R07.9 - Chest pain, unspecified (4) Aortic disease: Patient had an arterial examination of both groins. The right common femoral artery was found to have very sluggish blood flow. The left side has moderate diffuse plaques baseline artifacts, need to repeat appears to have good flow. Will continue on the current management. (5) Type 2 diabetes mellitus: The blood sugar seems to be slowly getting under control. Qualifiers: Diabetes mellitus halfway insulin use: with halfway use Diabetes mellitus complication status: with neurologic complications Diabetes mellitus complication detail: with polyneuropathy Qualified Code(s): E11.42 - Type 2 diabetes mellitus with diabetic polyneuropathy; Z79.4 - assisted (current) use of insulin (6) Chronic kidney disease (CKD): The BUN/creatinine is getting better./Stabilized. Qualifiers: Chronic kidney disease stage: stage 2 (mild) Qualified Code(s): N18.2 - Chronic kidney disease, stage 2 (mild) Plan We may go ahead and do a sestamibi/sestamibi perfusion scan tomorrow. Based on the results, further management decisions will be made. Attestations 2 Medical Necessity Statement*: Disposition as per the primary. Coding Level of Care Code 30844 Diagnoses Elevated troponin R79.89 Congestive heart failure, unspecified HF chronicity, unspecified heart failure type I50.9 Heart failure chronicity: unspecified Heart failure type: unspecified Chest pain, unspecified type R07.9 Chest pain type: unspecified Aortic disease I77.9 Type 2 diabetes mellitus with diabetic polyneuropathy, with long-term current use of insulin E11.42; Z79.4 Diabetes mellitus halfway insulin use: with halfway use Diabetes mellitus complication status: with neurologic complications Diabetes mellitus complication detail: with polyneuropathy Stage 2 chronic kidney disease N18.2 Chronic kidney disease stage: stage 2 (mild)
[2023-03-09] MEDS: enoxaparin 40 mg/0.4 mL Syringe SUBCUT (21:41)
[2023-03-09] MEDS: atorvastatin 40 mg Tablet PO (21:42)
[2023-03-09] MEDS: pantoprazole 40 mg SDV IVP (21:42)
[2023-03-09] MEDS: ALPRAZolam 0.5 mg Tablet 0.25 MG PO (21:43)
[2023-03-09 22:28] LABS: Glucose Point of Care 271 mg/dL (70-110)
[2023-03-10] VITALS (10 sets, daily range): BP systolic 117–158; BP diastolic 63–86; PULSE 77–85; RESP 14–27; TEMP 36.4–36.7; O2SAT 90–93
[2023-03-10 05:38] LABS: Basophils # 0.1 10^3/uL (0.0-0.1); Basophils % 0.7 %; Eosinophils # 0.5 10^3/uL (0.0-0.8); Hematocrit 35.2 % (36-47); Lymphocytes # 1.8 10^3/uL (0.8-4.8); Lymphocytes % 22.5 %; Mean Corpuscular HGB Conc 31.5 g/dL (30-55); Mean Corpuscular Hemoglobin 28.8 pg (27-33); Mean Corpuscular Volume 91.4 fl (85-98); Mean Platelet Volume 10.6 fL (7.4-10.4); Monocytes # 0.6 10^3/uL (0.2-0.9); Neutrophils # 5.03 10^3/uL (1.8-7.7); Neutrophils % 62.8 %; Nucleated Red Blood Cells % 0 %; Platelet Count 162 10^3/cmm (157-399); Red Blood Count 3.85 10^6/uL (3.85-5.65); Red Cell Distribution Width 15.4 % (12.1-15.1); White Blood Count 8.01 10^3/uL (3.29-11.43)
[2023-03-10 06:03] LABS: Blood Urea Nitrogen 35 mg/dL (6-20); C Reactive Protein 6.9 mg/L (0.0-4.9); Calcium 9.7 mg/dL (8.5-10.5); Carbon Dioxide 36 mmol/L (22-29); Chloride 90 mmol/L (98-107); Glomerular Filtration Rate 42.2 mL/min (90-130); Glucose 211 mg/dL (65-115); Magnesium 1.7 mg/dL (1.7-2.3); Osmolality Calculated 294 mOsm/kg (285-295); Phosphorus 4.1 mg/dL (2.5-4.5); Sodium 135 mmol/L (136-145)
[2023-03-10 06:12] LABS: NT Pro B Type Natriuretic Pept 7336 pg/mL (0-125)
[2023-03-10 06:18] LABS: Glucose Point of Care 228 mg/dL (70-110)
[2023-03-10] MEDS: regadenoson 0.4 Mg/5 ml Syringe IVP (07:40)
[2023-03-10] MEDS: aminophylline 25 mg/mL SDV 10 mL IVP (07:47)
--- NOTE | 2023-03-10 08:00 | NMCV_ITS ---
NM glenda perf SPECT r/s* [id number] Laurel Michael Age: 57 Gender: F : 1965 Exam Date: 03/10/2023 06:27 Ordering Phys: Oscar Echevarria MD ([email or web address]) Technologist: VERNON Kim Exam Location: [facility] [place] Indications: CHEST PAIN STRESS TEST [facility] IMAGE PROTOCOL Rest/Stress 1 Lexiscan Day Radiopharmaceutical Dose (mCi) Administration Site Administered by Rest: Tc-99m 10.7 IV VERNON Lozano Sestamibi Stress:Tc-99m 32.9 IV VERNON Lozano Sestamibi Rest: 10-Mar-2023 60 Discovery 630 Stress: 10-Mar-2023 30 Discovery 630 0.4mg Lexiscan. Supine position only as patient was unable to lay prone. SPECT RESULTS Technical Quality: Excellent Raw Data Analysis: Normal Image Corrections: No attenuation or motion correction applied Summed Stress Score: 18 Summed Rest Score: 17 Summed Difference Score: 2 PERFUSION FINDINGS Moderate area of moderate to severely decreased aseptic tracer uptake, involving the all the apical segments. Decreased tracer uptake also was noted in the mid inferolateral and mid anteroseptal segments. minimal reversibility was noted in the apical lateral and mid inferoseptal segments. FUNCTIONAL RESULTS (calculated via Gated SPECT) Stress Image LV EF (%): 24 Stress EDV (mL):231 TID: 1.06 Stress ESV (mL):175 FUNCTIONAL FINDINGS: Segmental wall motion analysis revealed diffuse hypokinesia severe diffuse hypokinesia of the mid and apical anterior, septal and all apical segments IMPRESSIONS 1. Myocardial perfusion imaging revealing moderate area of severely decreased persistent tracer uptake involving all apical segments with some involvement of the mid inferolateral and anteroseptal segments with minimal reversibility in the apical lateral and mid inferolateral segments, suggesting extensive scarring involving predominantly the distribution of the right coronary artery and circumflex artery with bsmall areas of violette-infarction ischemia. 2. Markedly diminished LV ejection fraction of 24% 3. Wall motion abnormalities as mentioned above. 4. Moderately dilated LV cavity with an end-systolic volume of 175 ml. No similar previous studies are available for comparison Dr Oscar Echevarria MD FACC (Electronically Signed) Final Date: 10 March 2023 09:34 S
[2023-03-10] MEDS: insulin lispro 100 unit/1 mL SUBCUT ×3 (09:03→17:31)
[2023-03-10] MEDS: cefTRIAXone 1,000 MG in sodium chloride 0.9% (plus) 50 ML 100 MG IV (09:04)
[2023-03-10] MEDS: insulin glargine 100 units/1 mL 10 UNIT SUBCUT (09:04)
[2023-03-10] MEDS: magnesium lactate 84 mg Tablet PO (09:05)
[2023-03-10] MEDS: nicotine 21 mg Patch 1 PATCH TRANSDERMA (09:05)
[2023-03-10] MEDS: clopidogrel 75 mg Tablet PO (09:05)
[2023-03-10] MEDS: gabapentin 300 mg Capsule 1800 MG PO ×2 (09:05→20:25)
[2023-03-10] MEDS: citalopram 20 mg Tablet 40 MG PO (09:06)
[2023-03-10] MEDS: linezolid premix 600 MG/300 ML PREMIX 300 MG IV (09:06)
[2023-03-10] MEDS: carvedilol 3.125 mg Tablet PO ×2 (09:06→17:31)
[2023-03-10] MEDS: FUROsemide 40 mg Tablet PO ×2 (09:06→16:18)
[2023-03-10] MEDS: aspirin 81 mg EC Tablet PO (09:06)
--- NOTE | 2023-03-10 09:46 | P.PN_ITS ---
Subjective 2 Subjective: Patient had the Myocardial perfusion imaging today. She was found to have areas of fixed defects around the apex with a small area of reversible defect. Medications: Medication Review Details: Current Medications Acetaminophen (Acetaminophen 325 Mg Tablet) 650 mg PO Q6H PRN PRN Reason: Mild/Mod Pain Or Temp >/= 101 Last Admin: 03/05/23 17:35 Dose: 650 mg Hydrocodone Bitart/Acetaminophen (Hydrocodone-Acetaminophen 5-325 Mg Tablet) 1 tab PO BID PRN PRN Reason: MODERATE PAIN Last Admin: 03/09/23 17:17 Dose: 1 tab Al Hydrox/Mg Hydrox/Simethicone (Qjiu-Gui-Douaowzcw-Kimmie 30 Ml Udc) 30 ml PO Q15M PRN PRN Reason: INDIGESTION Alprazolam (Alprazolam 0.5 Mg Tablet) 0.25 mg PO TID PRN PRN Reason: ANXIETY Last Admin: 03/09/23 21:43 Dose: 0.25 mg Aminophylline (Aminophylline 25 Mg/Ml Sdv 10 Ml) 25 mg IVP Q2M PRN PRN Reason: see dose instructions Stop: 03/11/23 07:10 Last Admin: 03/10/23 07:47 Dose: 25 mg Aspirin (Aspirin 81 Mg Ec Tablet) 81 mg PO DAILY COUNTS INCLUDE 234 BEDS AT THE [facility] Last Admin: 03/10/23 09:06 Dose: 81 mg Atorvastatin Calcium (Atorvastatin 40 Mg Tablet) 40 mg PO BEDTIME COUNTS INCLUDE 234 BEDS AT THE [facility] Last Admin: 03/09/23 21:42 Dose: 40 mg Atropine Sulfate (Atropine 1 Mg/Ml Sdv 1 Ml) 0.5 mg IVP PRN PRN PRN Reason: Symptomatic bradycardia Carvedilol (Carvedilol 3.125 Mg Tablet) 3.125 mg PO BID COUNTS INCLUDE 234 BEDS AT THE [facility] Last Admin: 03/10/23 09:06 Dose: 3.125 mg Citalopram Hydrobromide (Citalopram 20 Mg Tablet) 40 mg PO DAILY COUNTS INCLUDE 234 BEDS AT THE [facility] Last Admin: 03/10/23 09:06 Dose: 40 mg Clopidogrel Bisulfate (Clopidogrel 75 Mg Tablet) 75 mg PO DAILY COUNTS INCLUDE 234 BEDS AT THE [facility] Last Admin: 03/10/23 09:05 Dose: 75 mg Dextrose (Dextrose 50% Syringe 50 Ml) 25 ml IVP ONCE PRN; Protocol PRN Reason: hypoglycemia protocol Dextrose (Dextrose 50% Syringe 50 Ml) 50 ml IVP PRN PRN; Protocol PRN Reason: hypoglycemia protocol Enoxaparin Sodium (Enoxaparin 40 Mg/0.4 Ml Syringe) 40 mg SUBCUT Q24H COUNTS INCLUDE 234 BEDS AT THE [facility] Last Admin: 03/09/23 21:41 Dose: 40 mg Furosemide (Furosemide 40 Mg Tablet) 40 mg PO BID@08,16 COUNTS INCLUDE 234 BEDS AT THE [facility] Last Admin: 03/10/23 09:06 Dose: 40 mg Gabapentin (Gabapentin 300 Mg Capsule) 1,800 mg PO Q12H COUNTS INCLUDE 234 BEDS AT THE [facility] Last Admin: 03/10/23 09:05 Dose: 1,800 mg Dextrose (D5w) 500 mls @ 0 mls/hr IV ONCE PRN; Protocol PRN Reason: Adult Acute Hypoglycemia Prot Ceftriaxone Sodium 1,000 mg/ (Sodium Chloride) 50 mls @ 100 mls/hr IV Q24H COUNTS INCLUDE 234 BEDS AT THE [facility]; Protocol Last Admin: 03/10/23 09:04 Dose: 100 mls/hr Linezolid (Zyvox Premix) 600 mg in 300 mls @ 300 mls/hr IV Q12H COUNTS INCLUDE 234 BEDS AT THE [facility]; Protocol Last Admin: 03/10/23 09:06 Dose: 300 mls/hr Insulin Glargine (Insulin Glargine 100 Units/1 Ml) 10 unit SUBCUT Q24H COUNTS INCLUDE 234 BEDS AT THE [facility] Last Admin: 03/10/23 09:04 Dose: 10 unit Insulin Human Lispro (Insulin Lispro 100 Unit/1 Ml) 0 unit SUBCUT TIDWM COUNTS INCLUDE 234 BEDS AT THE [facility]; Protocol Last Admin: 03/10/23 09:03 Dose: 6 unit Magnesium Hydroxide (Magnesium Hydroxide 30 Ml Udc) 30 ml PO DAILY PRN PRN Reason: CONSTIPATION Magnesium Lactate (Magnesium Lactate 84 Mg Tablet) 84 mg PO DAILY COUNTS INCLUDE 234 BEDS AT THE [facility] Last Admin: 03/10/23 09:05 Dose: 84 mg Morphine Sulfate (Morphine 4 Mg/Ml Sdv 1 Ml) 2 mg IVP Q4H PRN PRN Reason: SEVERE PAIN Last Admin: 03/09/23 22:48 Dose: 2 mg Naloxone HCl (Naloxone 0.4 Mg/Ml Sdv) 0.1 mg IVP Q2M PRN PRN Reason: OPIATERV Nicotine (Nicotine 21 Mg Patch) 1 patch TRANSDERMA DAILY COUNTS INCLUDE 234 BEDS AT THE [facility] Last Admin: 03/10/23 09:05 Dose: 1 patch Nitroglycerin (Nitroglycerin 0.4 Mg Sublingual Tablet) 0.4 mg SUBLINGUAL Q5M PRN PRN Reason: CHEST PAIN Nitroglycerin (Nitroglycerin 0.4 Mg Sublingual Tablet) 0.4 mg SUBLINGUAL Q5M PRN PRN Reason: CHEST PAIN Stop: 03/11/23 07:10 Ondansetron HCl (Ondansetron 2 Mg/Ml Sdv 2 Ml) 4 mg IVP Q8H PRN PRN Reason: vomiting, or N/V if npo Ondansetron HCl (Ondansetron 2 Mg/Ml Sdv 2 Ml) 4 mg IVP Q2M PRN PRN Reason: NAUSEA Pantoprazole Sodium (Pantoprazole 40 Mg Sdv) 40 mg IVP Q24H COUNTS INCLUDE 234 BEDS AT THE [facility] Last Admin: 03/09/23 21:42 Dose: 40 mg Vitals/I&O/Wt Last Vital Signs Temp 97.8 F 03/10/23 08:00 Pulse 82 03/10/23 08:00 Resp 16 03/10/23 08:00 BP 137/86 03/10/23 08:00 Pulse Ox 91 03/10/23 08:00 O2 Del Method Nasal Cannula 03/10/23 08:00 O2 Flow Rate 3 03/09/23 18:19 FiO2 30 03/08/23 03:46 03/09/23 03/10/23 03/10/23 22:59 06:59 14:59 Intake Total 120 / 710 300 / 1010 720 / 720 Output Total 1375 / 2925 200 / 3125 Balance -1255 / -2215 100 / -2115 720 / 720 Weight last 48 hrs Weight 250 lb Weight 257 lb Physical Exam 2 Narrative: GENERAL: The patient is alert and oriented times three. Not in any acute distress. HEENT: No significant pallor, icterus or lymphadenopathy.Oral cavity: There are no mucous membrane lesions. NECK: Trachea appears to be central. No masses noted. No JVD or thyromegaly appreciated. RESPIRATORY: Chest is symmetrical. No intercostals muscle retraction or any accessory muscle activation. There is no chest wall tenderness. Breath sounds are heard bilaterally. No rales or rhonchi heard. No evidence of any consolidation. BREASTS: Deferred. HEART: The heart sounds are normal. No S3 or S4. No significant murmurs. No pericardial rub ABDOMEN: No vessel pulsations or distention. No tenderness. No organomegaly appreciated. Bowel sounds are normally heard. : Deferred. RECTAL: Deferred. LYMPHATIC: No lymphadenopathy noted in the neck. EXTREMITIES: Diffuse erythema of the left lower extremity. 1-2+ edema present. The pulses difficult to palpate. Both the dorsalis pedis and posterior pulses are present with the Doppler. MUSCULOSKELETAL: No acute joint deformities. [id number] amputation on the right side and transmetatarsal amputation on the left side SKIN: There are no significant rashes or ecchymosis NEUROPSYCHIATRIC: The patient is alert and oriented x3. Appears to be in a good mood. No tremors or rigidity noted. Urinary Catheter Management: Zacarias: Cath Placed During This Visit: yes Reason for Continuing Indwelling Catheter: Accurate Measurement of Urinary Output in Critically Ill Patients Urinary Catheter Date of Insertion: 03/04/23 Urinary Catheter Time of Insertion: 20:31 Data 03/10/23 05:33 03/10/23 05:33 Other Labs: Laboratory Last Values WBC 8.01 10^3/uL (3.29-11.43) 03/10/23 05:33 RBC 3.85 10^6/uL (3.85-5.65) 03/10/23 05:33 Hgb 11.10 g/dL (11.27-16.99) L 03/10/23 05:33 Hct 35.2 % (36-47) L 03/10/23 05:33 MCV 91.4 fl (85-98) 03/10/23 05:33 MCH 28.8 pg (27-33) 03/10/23 05:33 MCHC 31.5 g/dL (30-55) 03/10/23 05:33 RDW 15.4 % (12.1-15.1) H 03/10/23 05:33 Plt Count 162 10^3/cmm (157-399) 03/10/23 05:33 MPV 10.6 fL (7.4-10.4) H 03/10/23 05:33 Neut % (Auto) 62.8 % 03/10/23 05:33 Lymph % (Auto) 22.5 % 03/10/23 05:33 Warrick % (Auto) 7.0 % 03/10/23 05:33 Eos % (Auto) 6.0 % 03/10/23 05:33 Baso % (Auto) 0.7 % 03/10/23 05:33 Neut # (Auto) 5.03 10^3/uL (1.8-7.7) 03/10/23 05:33 Lymph # (Auto) 1.8 10^3/uL (0.8-4.8) 03/10/23 05:33 Warrick # (Auto) 0.6 10^3/uL (0.2-0.9) 03/10/23 05:33 Eos # (Auto) 0.5 10^3/uL (0.0-0.8) 03/10/23 05:33 Baso # (Auto) 0.1 10^3/uL (0.0-0.1) 03/10/23 05:33 Nucleated RBC % (auto) 0 % 03/10/23 05:33 Nucleated RBCs # 0.0 /100WBC 03/10/23 05:33 PT 14.30 SECONDS (12.1-14.9) 03/04/23 14:54 INR 1.08 (0.8-1.2) 03/04/23 14:54 APTT 53.1 SECONDS (23.9-36.7) H 03/08/23 16:11 D-Dimer 1.83 ug/mLFEU (0-0.59) H 03/04/23 20:55 Specimen Type Arterial 03/05/23 08:45 Sample Site Radial, right 03/05/23 08:45 ABG pH 7.39 (7.35-7.45) 03/05/23 08:45 ABG pCO2 52.2 mmHg (35-45) H 03/05/23 08:45 ABG pO2 103.0 mmHg (80.0-100.0) H 03/05/23 08:45 ABG PO2/FiO2 Ratio 0 03/05/23 08:45 ABG HCO3 31.3 mmol/L (22-26) H 03/05/23 08:45 ABG O2 Saturation 99.4 03/05/23 08:45 ABG Base Excess 5.1 mmol/L (-2.0-2.0) H 03/05/23 08:45 Adair Test Pos 03/05/23 08:45 A-a O2 Gradient 6.1 mmHg (5-10) 03/05/23 08:45 Hematocrit 36.7 % (37-47) L 03/05/23 08:45 Hgb O2 Saturation 95.7 % (95-100) 03/05/23 08:45 Carboxyhemoglobin 3.3 %THgb (0.4-20.1) 03/05/23 08:45 Methemoglobin 0.5 % (0.4-1.5) 03/05/23 08:45 Total Hemoglobin 12.0 g/dL (12-16) 03/05/23 08:45 Sodium 140.0 mmol/L (131-143) 03/05/23 08:45 Potassium 4.2 mmol/L (3.5-5.0) 03/05/23 08:45 Glucose 145.0 mg/dL (70-115) H 03/05/23 08:45 Ionized Calcium 1.2 mmol/L (1.1-1.4) 03/05/23 08:45 O2 Delivery Device Bipap 03/05/23 08:45 O2 Liters/Min 2.0 % 03/04/23 17:32 FiO2 30.0 % 03/05/23 08:45 Mosaic Tile Maker ID Broma 03/05/23 08:45 Sodium 135 mmol/L (136-145) L 03/10/23 05:33 Potassium 4.0 mmol/L (3.5-5.1) 03/10/23 05:33 Chloride 90 mmol/L (98-107) L 03/10/23 05:33 Carbon Dioxide 36 mmol/L (22-29) H 03/10/23 05:33 Anion Gap 13.0 (5-19) 03/10/23 05:33 BUN 35 mg/dL (6-20) H 03/10/23 05:33 Creatinine 1.3 mg/dL (0.5-0.9) H 03/10/23 05:33 GFR Calculation 42.2 mL/min (90-130) L 03/10/23 05:33 Glucose 211 mg/dL (65-115) H 03/10/23 05:33 POC Glucose 228 mg/dL (70-110) H 03/10/23 06:02 Estimat Average Glucose 189 03/04/23 20:55 Hemoglobin A1c 8.2 % (4.0-6.0) H 03/04/23 20:55 Calculated Osmolality 294 mOsm/kg (285-295) 03/10/23 05:33 Lactic Acid 1.7 mmol/L (0.5-2.2) 03/04/23 14:54 Calcium 9.7 mg/dL (8.5-10.5) 03/10/23 05:33 Phosphorus 4.1 mg/dL (2.5-4.5) 03/10/23 05:33 Magnesium 1.7 mg/dL (1.7-2.3) 03/10/23 05:33 Total Bilirubin 0.2 mg/dL (0.15-1.2) 03/07/23 02:49 AST 7 U/L (0-32) 03/07/23 02:49 ALT < 5 U/L (0-33) 03/07/23 02:49 Alkaline Phosphatase 116 U/L (35-105) H 03/07/23 02:49 Troponin T Baseline 164 ng/L (0-10) H* 03/04/23 14:54 Troponin T 120 Minute 165.4 ng/L (0-10) H 03/04/23 17:14 Delta Troponin T 1.4 ABS# (0-10) 03/04/23 17:14 Troponin T Hi Sens 6Hr 173.0 ng/L (0-10) H 03/04/23 20:55 Troponin T Hi Sens 6Hr Delta 9.0 ng/L (0-12) 03/04/23 20:55 C-Reactive Protein 6.9 mg/L (0.0-4.9) H 03/10/23 05:33 NT-Pro-B Natriuret Pep 7336 pg/mL (0-125) H 03/10/23 05:33 Total Protein 7.1 g/dL (6.6-8.7) 03/07/23 02:49 Albumin 3.4 g/dL (3.5-5.2) L 03/07/23 02:49 Globulin 3.7 g/dL (1.3-4.6) 03/07/23 02:49 Triglycerides 196 mg/dL (0-150) H 03/04/23 20:55 Cholesterol 147 mg/dL (0-200) 03/04/23 20:55 LDL Cholesterol, Calc 69 mg/dL (50-129) 03/04/23 20:55 HDL Cholesterol 39 mg/dL (60-100) L 03/04/23 20: LDL/HDL Ratio 1.77 RATIO (0.00-3.22) 03/04/23 20: Cholesterol/HDL Ratio 3.77 mg/dL (0.0-4.40) 03/04/23 20: Procalcitonin 0.20 ng/mL (0-0.5) 03/04/23 20: TSH 3.01 uIU/mL (0.27-4.20) 03/04/23 20: Urine Color Light yellow (Yellow) 03/04/23 20: Urine Appearance Clear (CLEAR) 03/04/23 20: Urine pH 5 (5-7) 03/04/23 20: Ur Specific Walker 1.005 (1.005-1.030) 03/04/23 20: Urine Protein Trace (Negative) 03/04/23 20: Urine Glucose (UA) Norm (Normal) 03/04/23 20: Urine Ketones Negative (Negative) 03/04/23 20: Urine Blood Neg (Negative) 03/04/23 20: Urine Nitrate Negative (Negative) 03/04/23 20: Urine Bilirubin Neg (Negative) 03/04/23 20: Urine Urobilinogen Norm mg/dL (Negative) 03/04/23 20: Ur Leukocyte Esterase 2+ (Negative) H 03/04/23 20: Urine RBC 0-4 /hpf (0-2) H 03/04/23 20: Urine WBC 15-25 /hpf (0-5) H 03/04/23 20: Ur Squamous Epith Cells 0-4 /hpf (0-5) H 03/04/23 20: Amorphous Sediment Not Reportable 03/04/23 20: Urine Bacteria 2+ /hpf (NONE) H 03/04/23 20:27 Nasal Influ A H1 2008 PCR Not detected (NOT DETECT) 03/04/23 20: Vancomycin Trough 29.9 ug/mL (10-15) H* 03/06/23 20:05 Random Vancomycin 23.9 ug/mL (20.0-40.0) 03/07/23 07:34 Adenovirus (PCR) Not detected (NOT DETECT) 03/04/23 20: C. pneumoniae DNA (PCR) Not detected (NOT DETECT) 03/04/23 20:30 Coronavirus 229E (PCR) Not detected (NOT DETECT) 03/04/23 20:30 Human Metapneumovir PCR Not detected (NOT DETECT) 03/04/23 20:30 Influenza A (H1) PCR Not detected (NOT DETECT) 03/04/23 20:30 Influenza A (H3) PCR Not detected (NOT DETECT) 03/04/23 20:30 Influenza Type A (PCR) Not detected (NOT DETECT) 03/04/23 20:30 Influenza Type B (PCR) Not detected (NOT DETECT) 03/04/23 20:30 M. pneumoniae (PCR) Not detected (NOT DETECT) 03/04/23 20:30 Parainfluenza 1 (PCR) Not detected (NOT DETECT) 03/04/23 20:30 Parainfluenza 2 (PCR) Not detected (NOT DETECT) 03/04/23 20:30 Parainfluenza 3 (PCR) Not detected (NOT DETECT) 03/04/23 20:30 Parainfluenza 4 (PCR) Not detected (NOT DETECT) 03/04/23 20:30 RSV Type A (PCR) Not detected (NOT DETECT) 03/04/23 20:30 RSV Type B (PCR) Not detected (NOT DETECT) 03/04/23 20:30 Entero/Rhino (PCR) Not detected (NOT DETECT) 03/04/23 20:30 SARS-CoV-2 (PCR) Not detected (NOT DETECT) 03/04/23 20:30 A&P Assessment and plan (1) Elevated troponin: Since the patient's ischemic burden is very low, based on the perfusion scan, it may be appropriate to continue the medical treatment at this point. The results of the Myocardial perfusion imaging were discussed with the patient in detail which is she seems understand well I may add isosorbide mononitrate 30 mg p.o. daily to the current regimen (2) CHF (congestive heart failure): The IV Lasix is switched to p.o. Will continue monitoring the urine output Qualifiers: Heart failure chronicity: unspecified Heart failure type: unspecified Qualified Code(s): I50.9 - Heart failure, unspecified (3) Aortic disease: May continue on the current management. (4) Type 2 diabetes mellitus: The blood sugar seems to be slowly getting under control. 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
[2023-03-10] MEDS: HYDROcodone-acetaminophen 5-325 mg Tablet 1 TAB PO (10:18)
--- NOTE | 2023-03-10 11:25 | PC.SOCIAL ---
IMM Update pg 2 of IMM updated and reviewed w/ patient. Copy provided and copy dated, initialed and placed in chart.
[2023-03-10 11:46] LABS: Glucose Point of Care 282 mg/dL (70-110)
--- NOTE | 2023-03-10 13:02 | P.PN_ITS ---
Subjective 2 Subjective: Patient was seen this morning, she is -13 L, no chest pain overnight, she underwent stress test, denies any chest pain overnight, she is really bothered by her nasal packing, no significant nosebleeds overnight, packing was removed, she tolerated procedure well, no recurrent bleeding, will continue to monitor Vitals/I&O/Wt Last Vital Signs Temp 97.7 F 03/10/23 11:09 Pulse 80 03/10/23 11:09 Resp 27 H 03/10/23 11:09 BP 158/86 03/10/23 11:09 Pulse Ox 93 03/10/23 11:09 O2 Del Method Aerosol Mask, Mechanical Ventilation 03/10/23 11:09 O2 Flow Rate 3 03/09/23 18:19 FiO2 30 03/08/23 03:46 03/09/23 03/10/23 03/10/23 22:59 06:59 14:59 Intake Total 120 / 710 300 / 1010 1070 / 1070 Output Total 1375 / 2925 200 / 3125 950 / 950 Balance -1255 / -2215 100 / -2115 120 / 120 Weight last 48 hrs Weight 113.398 kg Weight 116.573 kg Physical Exam 2 Const: COMMON NORMALS: no acute distress and patient oriented x3 Resp: COMMON NORMALS: normal respiratory effort, No retractions, No use of accessory muscles and clear to auscultation bilaterally AUSCULTATION: clear to auscultation bilaterally Cardio: COMMON NORMALS: regular rate, regular rhythm, S1 normal heart sound present and S2 normal heart sound present RATE: regular rate RHYTHM: r egular rhythm HEART SOUNDS: S1 normal heart sound present and S2 normal heart sound present GI: COMMON NORMALS: Normal to inspection, nondistended, normoactive bowel sounds present and non-tender Extremity: COMMON NORMALS: no pedal edema Neuro: COMMON NORMALS: patient oriented x3 Psych: COMMON NORMALS: mental status grossly normal Urinary Catheter Management: Zacarias: Cath Placed During This Visit: yes, but has since been removed by the nurse Reason for Continuing Indwelling Catheter: Accurate Measurement of Urinary Output in Critically Ill Patients Urinary Catheter Date of Insertion: 03/04/23 Urinary Catheter Time of Insertion: 20:31 Date Urinary Catheter Removed: 03/10/23 Time Urinary Catheter Discontinued: 11:34 Data 03/10/23 05:33 03/10/23 05:33 A&P Assessment and plan (1) Acute hypoxemic respiratory failure: (2) NSTEMI (non-ST elevated myocardial infarction): (3) Systolic CHF: (4) Pleural effusion, right: (5) Left leg swelling: (6) Chest pain: Qualifiers: Chest pain type: unspecified Qualified Code(s): R07.9 - Chest pain, unspecified (7) Obesity: (8) Cellulitis, leg: Plan Acute hypoxic respiratory failure ? Likely secondary to systolic CHF, ? Cannot order CT angiogram of the chest to rule out pulmonary embolism, as patient cannot lie flat, D-dimer 1.83, venous ultrasound ordered negative for DVT, low probability ? Plan ? Fluid restrictions of 1000 cc, ? Place Zacarias catheter, Monitor urine output, ? Lasix 40 po twice daily, creatinine 1.3, urine output over 13 L, monitor creatinine ? Completed heparin drip for 48 hours, currently stopped as patient has has had significant nosebleed ? sputum cultures, blood cultures ? coutinue bipap NSTEMI, with complaints of chest pain ? Cardiac risk factors include complaints of chest discomfort, ? Peripheral vascular disease, ? Poorly controlled type 2 diabetes mellitus -Concerns for type I NSTEMI versus type II ? Plan ? Serial EKGs, start troponins, telemetry monitoring, ? Aspirin, Plavix ? Statin?beta-crow, ? Heparin drip stopped due to significant nosebleed ?cardiology consulted, plan is for stress test today ? Cardiac echo Systolic CHF ? Mildly dilated left ventricle. Severe diffuse hypokinesia of the LV apex. LV ejection fraction around 35 %.Grade III/IV diastolic dysfunction (restrictive filling pattern), severely elevated filling pressures. Mildly increased left atrial size. Mild to moderate mitral regurgitation. Thickened aortic valve. There is no pericardial effusion. Technically difficult study because of poor ultrasonic window. Right pleural effusion, ? Continue to monitor Left leg swelling, ? Multifactorial from CHF, concern for DVT, ? Ultrasound for DVT negative Left leg cellulitis,cefepime,Zyvox UTI, E. coli, continue cefepime Type 2 diabetes mellitus, low-dose sliding scale, Right below-knee amputation, left TMA Full code DVT prophylaxis, heparin currently on hold due to significant nosebleed Plan for today stress test continue diuresis, if clinically improved possible discharge tomorrow Attestations 2 Medical Necessity Statement*: Patient requires hospitalization for NSTEMI, fluid overload requiring diuresis, stress testing, cellulitis requiring IV antibiotics Diagnoses Acute hypoxemic respiratory failure J96.01 NSTEMI (non-ST elevated myocardial infarction) I21.4 Systolic CHF I50.20 Pleural effusion, right J90 Left leg swelling M79.89 Chest pain, unspecified type R07.9 Chest pain type: unspecified Obesity E66.9 Cellulitis, leg L03.119
[2023-03-10 16:44] LABS: Glucose Point of Care 275 mg/dL (70-110)
[2023-03-10] MEDS: atorvastatin 40 mg Tablet PO (20:25)
[2023-03-10] MEDS: enoxaparin 40 mg/0.4 mL Syringe SUBCUT (20:25)
[2023-03-10] MEDS: ALPRAZolam 0.5 mg Tablet 0.25 MG PO (20:25)
[2023-03-10] MEDS: pantoprazole 40 mg SDV IVP (20:25)
[2023-03-10 22:17] LABS: Glucose Point of Care 345 mg/dL (70-110)
[2023-03-11] VITALS (12 sets, daily range): BP systolic 128–142; BP diastolic 67–86; PULSE 67–81; RESP 14–19; TEMP 36.3–36.9; O2SAT 87–97
[2023-03-11] MEDS: morphine 4 mg/mL SDV 1 mL 2 MG IVP (01:28)
[2023-03-11 04:01] LABS: Basophils # 0.1 10^3/uL (0.0-0.1); Basophils % 0.7 %; Eosinophils # 0.5 10^3/uL (0.0-0.8); Eosinophils % 6.3 %; Hematocrit 36.6 % (36-47); Lymphocytes % 22.8 %; Mean Corpuscular HGB Conc 30.6 g/dL (30-55); Mean Corpuscular Hemoglobin 28.4 pg (27-33); Mean Corpuscular Volume 92.9 fl (85-98); Mean Platelet Volume 11.4 fL (7.4-10.4); Monocytes # 0.5 10^3/uL (0.2-0.9); Monocytes % 6.1 %; Neutrophils # 5.44 10^3/uL (1.8-7.7); Neutrophils % 63.4 %; Nucleated Red Blood Cells % 0 %; Platelet Count 207 10^3/cmm (157-399); Red Blood Count 3.94 10^6/uL (3.85-5.65); Red Cell Distribution Width 15.1 % (12.1-15.1); White Blood Count 8.57 10^3/uL (3.29-11.43)
[2023-03-11 04:26] LABS: Blood Urea Nitrogen 44 mg/dL (6-20); Calcium 9.6 mg/dL (8.5-10.5); Carbon Dioxide 35 mmol/L (22-29); Chloride 92 mmol/L (98-107); Glomerular Filtration Rate 42.2 mL/min (90-130); Glucose 269 mg/dL (65-115); Osmolality Calculated 311 mOsm/kg (285-295); Sodium 140 mmol/L (136-145)
[2023-03-11 04:30] LABS: Anion Gap 17.6 (5-19); Potassium 4.6 mmol/L (3.5-5.1)
[2023-03-11 04:31] LABS: C Reactive Protein 10.1 mg/L (0.0-4.9); Magnesium 1.9 mg/dL (1.7-2.3); NT Pro B Type Natriuretic Pept 6487 pg/mL (0-125); Phosphorus 4.6 mg/dL (2.5-4.5)
[2023-03-11 06:07] LABS: Glucose Point of Care 284 mg/dL (70-110)
[2023-03-11] MEDS: gabapentin 300 mg Capsule 1800 MG PO (08:57)
[2023-03-11] MEDS: magnesium lactate 84 mg Tablet PO (08:58)
[2023-03-11] MEDS: clopidogrel 75 mg Tablet PO (08:58)
[2023-03-11] MEDS: citalopram 20 mg Tablet 40 MG PO (08:58)
[2023-03-11] MEDS: carvedilol 3.125 mg Tablet PO (08:58)
[2023-03-11] MEDS: isosorbide mononitrate ER 30 mg Tablet PO (08:58)
[2023-03-11] MEDS: FUROsemide 40 mg Tablet PO (08:58)
[2023-03-11] MEDS: insulin lispro 100 unit/1 mL SUBCUT ×2 (08:59→13:07)
[2023-03-11] MEDS: insulin glargine 100 units/1 mL 10 UNIT SUBCUT (08:59)
[2023-03-11] MEDS: doxycycline 100 mg Tablet PO (08:59)
[2023-03-11] MEDS: nicotine 21 mg Patch 1 PATCH TRANSDERMA (08:59)
[2023-03-11] MEDS: amoxicillin-clav 875-125 mg Tablet 1 TAB PO (08:59)
--- NOTE | 2023-03-11 09:59 | USCV_ITS ---
Laurel Michael Age: 57 Gender: F : 1965 Exam Date: 03/11/2023 10:49 Ordering Phys: Bryan Loco MD Technologist: Ciro Banegas Exam Location: [facility] – [place] Indication: ef BP: 128 / 73 HR: 78 Rhythm: Sinus Technical Quality: Adequate MEASUREMENTS (Male / Female) Normal Values 2D ECHO LV Diastolic Diameter PLAX 5.4 cm 4.2 - 5.9 / 3.9 - 5.3 cm LV Systolic Diameter PLAX 4.3 cm IVS Diastolic Thickness 0.9 cm 0.6 - 1.0 / 0.6 - 0.9 cm IVS Systolic Thickness 1.7 cm LVPW Diastolic Thickness 1.3 cm 0.6 - 1.0 / 0.6 - 0.9 cm LVPW Systolic Thickness 1.5 cm LV Ejection Fraction 2D Teich 24.3 % LV Ejection Fraction MOD 2C 48.2 % LV Ejection Fraction 2C AL 47.8 % LA Diameter 4.9 cm IVC Diameter 1.4 cm M-MODE Aortic Annulus Diameter 3.5 cm LA Ao Ratio MM 1.4 MV E Point Septal Separation 1.2 cm FINDINGS Left Ventricle Severe hypokinesis of the mid and apical septum and the anteroseptal segments. Dyskinetic he apical inferior wall segment.. LV ejection fraction of 48%, based on MOD Right Ventricle The right ventricle is normal in size and function. Right Atrium The right atrium is normal in size. Left Atrium Mildly increased left atrial size. Mitral Valve No gross abnormalities noted Aortic Valve No gross abnormalities noted Tricuspid Valve No gross abnormalities noted Pulmonic Valve Pulmonic valve not well visualized. Pericardium No pericardial effusion. Aorta Normal aortic annulus size. IVC Inferior vena cava not visualized. CONCLUSIONS Multiple wall motion normalities with a diminished LV ejection fraction of 48% by MOD Mildly dilated LV cavity Mildly increased left atrial size. There is no pericardial effusion. There are no intracardiac masses. Compared to the study from 03/05/2023, there seems to be some improvement in the LV ejection fraction. Dr Oscar Echevarria MD FAC (Electronically Signed) Final Date: 11 March 2023 12:31 S
[2023-03-11 11:39] LABS: Glucose Point of Care 303 mg/dL (70-110)
--- NOTE | 2023-03-11 12:25 | P.DS_ITS ---
Discharge Providers Date of Admission: 03/04/23 17:02 Date of Discharge: March 11, 2023 Attending Provider at Admission: Bryan Loco MD Attending Provider at Discharge: Bryan Loco MD Primary Care Provider: Norman Santizo Diagnoses at Discharge Discharge Diagnosis (1) Elevated troponin: Status: Acute (2) CHF (congestive heart failure): Status: Acute Qualifiers: Heart failure chronicity: unspecified Heart failure type: unspecified Qualified Code(s): I50.9 - Heart failure, unspecified (3) Aortic disease: Status: Acute (4) Type 2 diabetes mellitus: Status: Acute Qualifiers: Diabetes mellitus complication detail: with polyneuropathy Diabetes mellitus complication status: with neurologic complications Diabetes mellitus intermediate project manager insulin use: with intermediate project manager use Qualified Code(s): E11.42 - Type 2 diabetes mellitus with diabetic polyneuropathy; Z79.4 - halfway (current) use of insulin (5) Chronic kidney disease (CKD): Status: Chronic Qualifiers: Chronic kidney disease stage: stage 2 (mild) Qualified Code(s): N18.2 - Chronic kidney disease, stage 2 (mild) Reason for Visit Reason for Visit: [facility] [place], [facility] Hospital Course Hospital Course Laurel Michael is a 57 year old female with a past medical history of insulin- dependent type 2 diabetes mellitus, peripheral vascular disease, status post intervention by Dr. stokes in 2018, active smoker, right below-knee amputation, left transmetatarsal amputation, who presents [facility] due to chest, discomfort, shortness of breath, left lower extremity swelling. Patient tells me that for the last few days she has been less ambulatory, she has been feeling increasingly short of breath she cannot sleep in bed, she has to sleep in her wheelchair due to orthopnea and paroxysmal nocturnal dyspnea, she is also developed left leg swelling, she has had calf tenderness, she does report that she developed blisters on her left lower extremities that are fluid-filled blisters that tend to rupture, she feels short of breath at rest now, currently she is on 2 L she denies using oxygen at home she is a smoker, no history of COPD, she does report anterior chest discomfort she has had 3 episodes of chest pain this week, she tells me that it is like a pressure-like sensation in the anterior chest, no hemoptysis, no recent travel, no recent surgeries, Patient was admitted to [facility] for acute hypoxic respiratory failure, likely secondary to systolic CHF, received fluid restrictions, IV diuresis, and clinically monitored overall diuresed 13 L, clinically improved, discharged on oxygen therapy for systolic CHF, Lasix 40 twice daily with potassium replacement therapy, fluid restriction instructions and follow-up with cardiology For her NSTEMI, she was clinically monitored on aspirin, Plavix, beta-crow, heparin drip, cardiac echo: CONCLUSIONS Mildly dilated left ventricle. Severe diffuse hypokinesia of the LV apex. LV ejection fraction around 35 %.Grade III/IV diastolic dysfunction (restrictive filling pattern), severely elevated filling pressures. Mildly increased left atrial size. Mild to moderate mitral regurgitation. Thickened aortic valve. There is no pericardial effusion. Technically difficult study because of poor ultrasonic window. Stress testing IMPRESSIONS 1. Myocardial perfusion imaging revealing moderate area of severely decreased persistent tracer uptake involving all apical segments with some involvement of the mid inferolateral and anteroseptal segments with minimal reversibility in the apical lateral and mid inferolateral segments, suggesting extensive scarring involving predominantly the distribution of the right coronary artery and circumflex artery with bsmall areas of violette-infarction ischemia. 2. Markedly diminished LV ejection fraction of 24% 3. Wall motion abnormalities as mentioned above. 4. Moderately dilated LV cavity with an end-systolic volume of 175 ml. No similar previous studies are available for comparison -No recurrent chest pain during hospitalization, ? Discharged on aspirin, Plavix, beta-crow, Imdur -Discharged on nitro as needed for chest pain, ? Patient was advised if she has recurrent chest pain to go to the emergency room, ? Follow-up with cardiology as outpatient, and decision when and if to do a coronary angiography Left leg swelling, negative for DVT, likely cellulitis received broad-spectrum antibiotic therapy, discharged on doxycycline UTI showing E. coli, completed antibiotic therapy as inpatient Type 2 diabetes mellitus, discharged on low-dose sliding scale, Lantus 10 units subcu a.m. Physical Exam Const: COMMON NORMALS: no acute distress and patient oriented x3 Resp: COMMON NORMALS: normal respiratory effort, No retractions, No use of accessory muscles and clear to auscultation bilaterally AUSCULTATION: clear to auscultation bilaterally Cardio: COMMON NORMALS: regular rate, regular rhythm, S1 normal heart sound present and S2 normal heart sound present RATE: regular rate RHYTHM: regular rhythm HEART SOUNDS: S1 normal heart sound present and S2 normal heart sound present GI: COMMON NORMALS: Normal to inspection, nondistended, normoactive bowel sounds present and non-tender Extremity: COMMON NORMALS: no pedal edema Neuro: COMMON NORMALS: patient oriented x3 Psych: COMMON NORMALS: mental status grossly normal Urinary Catheter Management: Zacarias: Cath Placed During This Visit: yes, but has since been removed by the nurse Reason for Continuing Indwelling Catheter: Accurate Measurement of Urinary Output in Critically Ill Patients Urinary Catheter Date of Insertion: 03/04/23 Urinary Catheter Time of Insertion: 20:31 Date Urinary Catheter Removed: 03/10/23 Time Urinary Catheter Discontinued: 11:34 Discharge Data Studies Completed and Pending Completed Studies During Hospitalization Category Date Time Status Sestamibi Stress Test Request Routine Exams 03/09/23 13:59 Draft XR chest 1V portable [id number] Stat Exams 03/04/23 14:29 Completed Blood Cultures ([facility]) Routine Lab 03/04/23 19:34 Completed Blood Cultures ([facility]) Routine Lab 03/04/23 19:39 Completed NM glenda perf SPECT r/s* [id number] Routine Nuc Med 03/10/23 08:00 Completed CV guide vascular access [id number] Routine Ultrasound 03/08/23 08:13 [place] [id number] Stat Ultrasound 03/04/23 17:18 Completed CV. echo complete* [id number] Stat Ultrasound 03/05/23 17:18 Completed Pending at discharge Category Date Time Status Cardiac Stress Test MIBI [Sestamibi Stress Test Request Exams 03/09/23 19:20 Ordered ] Routine C Reactive Protein AM LABS Lab 03/12/23 04:00 Ordered C Reactive Protein AM LABS Lab 03/13/23 04:00 Ordered Complete Blood Count w/Auto AM LABS Lab 03/12/23 04:00 Ordered Complete Blood Count w/Auto AM LABS Lab 03/13/23 04:00 Ordered Magnesium AM LABS Lab 03/12/23 04:00 Ordered Magnesium AM LABS Lab 03/13/23 04:00 Ordered NT Pro B Type Natriuretic Pept QAM Lab 03/12/23 06:00 Ordered NT Pro B Type Natriuretic Pept QAM Lab 03/13/23 06:00 Ordered Phosphorus AM LABS Lab 03/12/23 04:00 Ordered Phosphorus AM LABS Lab 03/13/23 04:00 Ordered CV. echo limited [id number] Stat Ultrasound 03/11/23 09:59 Taken Laboratory Results WBC 8.57 10^3/uL (3.29-11.43) 03/11/23 03:00 RBC 3.94 10^6/uL (3.85-5.65) 03/11/23 03:00 Hgb 11.20 g/dL (11.27-16.99) L 03/11/23 03:00 Hct 36.6 % (36-47) 03/11/23 03:00 MCV 92.9 fl (85-98) 03/11/23 03:00 MCH 28.4 pg (27-33) 03/11/23 03:00 MCHC 30.6 g/dL (30-55) 03/11/23 03:00 RDW 15.1 % (12.1-15.1) 03/11/23 03:00 Plt Count 207 10^3/cmm (157-399) 03/11/23 03:00 MPV 11.4 fL (7.4-10.4) H 03/11/23 03:00 Neut % (Auto) 63.4 % 03/11/23 03:00 Lymph % (Auto) 22.8 % 03/11/23 03:00 Morrow % (Auto) 6.1 % 03/11/23 03:00 Eos % (Auto) 6.3 % 03/11/23 03:00 Baso % (Auto) 0.7 % 03/11/23 03:00 Neut # (Auto) 5.44 10^3/uL (1.8-7.7) 03/11/23 03:00 Lymph # (Auto) 2.0 10^3/uL (0.8-4.8) 03/11/23 03:00 Morrow # (Auto) 0.5 10^3/uL (0.2-0.9) 03/11/23 03:00 Eos # (Auto) 0.5 10^3/uL (0.0-0.8) 03/11/23 03:00 Baso # (Auto) 0.1 10^3/uL (0.0-0.1) 03/11/23 03:00 Nucleated RBC % (auto) 0 % 03/11/23 03:00 Nucleated RBCs # 0.0 /100WBC 03/11/23 03:00 PT 14.30 SECONDS (12.1-14.9) 03/04/23 14:54 INR 1.08 (0.8-1.2) 03/04/23 14:54 APTT 53.1 SECONDS (23.9-36.7) H 03/08/23 16:11 D-Dimer 1.83 ug/mLFEU (0-0.59) H 03/04/23 20:55 Specimen Type Arterial 03/05/23 08:45 Sample Site Radial, right 03/05/23 08:45 ABG pH 7.39 (7.35-7.45) 03/05/23 08:45 ABG pCO2 52.2 mmHg (35-45) H 03/05/23 08:45 ABG pO2 103.0 mmHg (80.0-100.0) H 03/05/23 08:45 ABG PO2/FiO2 Ratio 0 03/05/23 08:45 ABG HCO3 31.3 mmol/L (22-26) H 03/05/23 08:45 ABG O2 Saturation 99.4 03/05/23 08:45 ABG Base Excess 5.1 mmol/L (-2.0-2.0) H 03/05/23 08:45 Adair Test Pos 03/05/23 08:45 A-a O2 Gradient 6.1 mmHg (5-10) 03/05/23 08:45 Hematocrit 36.7 % (37-47) L 03/05/23 08:45 Hgb O2 Saturation 95.7 % (95-100) 03/05/23 08:45 Carboxyhemoglobin 3.3 %THgb (0.4-20.1) 03/05/23 08:45 Methemoglobin 0.5 % (0.4-1.5) 03/05/23 08:45 Total Hemoglobin 12.0 g/dL (12-16) 03/05/23 08:45 Sodium 140.0 mmol/L (131-143) 03/05/23 08:45 Potassium 4.2 mmol/L (3.5-5.0) 03/05/23 08:45 Glucose 145.0 mg/dL (70-115) H 03/05/23 08:45 Ionized Calcium 1.2 mmol/L (1.1-1.4) 03/05/23 08:45 O2 Delivery Device Bipap 03/05/23 08:45 O2 Liters/Min 2.0 % 03/04/23 17:32 FiO2 30.0 % 03/05/23 08:45 Hand Reamer ID Emmanuelle 03/05/23 08:45 Sodium 140 mmol/L (136-145) 03/11/23 03:00 Potassium 4.6 mmol/L (3.5-5.1) 03/11/23 03:00 Chloride 92 mmol/L (98-107) L 03/11/23 03:00 Carbon Dioxide 35 mmol/L (22-29) H 03/11/23 03:00 Anion Gap 17.6 (5-19) 03/11/23 03:00 BUN 44 mg/dL (6-20) H 03/11/23 03:00 Creatinine 1.3 mg/dL (0.5-0.9) H 03/11/23 03:00 GFR Calculation 42.2 mL/min (90-130) L 03/11/23 03:00 Glucose 269 mg/dL (65-115) H 03/11/23 03:00 POC Glucose 303 mg/dL (70-110) H 03/11/23 11:06 Estimat Average Glucose 189 03/04/23 20:55 Hemoglobin A1c 8.2 % (4.0-6.0) H 03/04/23 20:55 Calculated Osmolality 311 mOsm/kg (285-295) H 03/11/23 03:00 Lactic Acid 1.7 mmol/L (0.5-2.2) 03/04/23 14:54 Calcium 9.6 mg/dL (8.5-10.5) 03/11/23 03:00 Phosphorus 4.6 mg/dL (2.5-4.5) H 03/11/23 03:00 Magnesium 1.9 mg/dL (1.7-2.3) 03/11/23 03:00 Total Bilirubin 0.2 mg/dL (0.15-1.2) 03/07/23 02:49 AST 7 U/L (0-32) 03/07/23 02:49 ALT < 5 U/L (0-33) 03/07/23 02:49 Alkaline Phosphatase 116 U/L (35-105) H 03/07/23 02:49 Troponin T Baseline 164 ng/L (0-10) H* 03/04/23 14:54 Troponin T 120 Minute 165.4 ng/L (0-10) H 03/04/23 17:14 Delta Troponin T 1.4 ABS# (0-10) 03/04/23 17:14 Troponin T Hi Sens 6Hr 173.0 ng/L (0-10) H 03/04/23 20:55 Troponin T Hi Sens 6Hr Delta 9.0 ng/L (0-12) 03/04/23 20:55 C-Reactive Protein 10.1 mg/L (0.0-4.9) H 03/11/23 03:00 NT-Pro-B Natriuret Pep 6487 pg/mL (0-125) H 03/11/23 03:00 Total Protein 7.1 g/dL (6.6-8.7) 03/07/23 02:49 Albumin 3.4 g/dL (3.5-5.2) L 03/07/23 02:49 Globulin 3.7 g/dL (1.3-4.6) 03/07/23 02:49 Triglycerides 196 mg/dL (0-150) H 03/04/23 20:55 Cholesterol 147 mg/dL (0-200) 03/04/23 20:55 LDL Cholesterol, Calc 69 mg/dL (50-129) 03/04/23 20:55 HDL Cholesterol 39 mg/dL (60-100) L 03/04/23 20:55 LDL/HDL Ratio 1.77 RATIO (0.00-3.22) 03/04/23 20:55 Cholesterol/HDL Ratio 3.77 mg/dL (0.0-4.40) 03/04/23 20:55 Procalcitonin 0.20 ng/mL (0-0.5) 03/04/23 20:55 TSH 3.01 uIU/mL (0.27-4.20) 03/04/23 20:55 Urine Color Light yellow (Yellow) 03/04/23 20: Urine Appearance Clear (CLEAR) 03/04/23 20: Urine pH 5 (5-7) 03/04/23 20:27 Ur Specific Vadito 1.005 (1.005-1.030) 03/04/23 20:27 Urine Protein Trace (Negative) 03/04/23 20:27 Urine Glucose (UA) Norm (Normal) 03/04/23 20: Urine Ketones Negative (Negative) 03/04/23 20: Urine Blood Neg (Negative) 03/04/23 20: Urine Nitrate Negative (Negative) 03/04/23 20: Urine Bilirubin Neg (Negative) 03/04/23 20: Urine Urobilinogen Norm mg/dL (Negative) 03/04/23 20: Ur Leukocyte Esterase 2+ (Negative) H 03/04/23 20:27 Urine RBC 0-4 /hpf (0-2) H 03/04/23 20: Urine WBC 15-25 /hpf (0-5) H 03/04/23 20: Ur Squamous Epith Cells 0-4 /hpf (0-5) H 03/04/23 20: Amorphous Sediment Not Reportable 03/04/23 20: Urine Bacteria 2+ /hpf (NONE) H 03/04/23 20:27 Nasal Influ A H1 2009 PCR Not detected (NOT DETECT) 03/04/23 20:30 Vancomycin Trough 29.9 ug/mL (10-15) H* 03/06/23 20:05 Random Vancomycin 23.9 ug/mL (20.0-40.0) 03/07/23 07:34 Adenovirus (PCR) Not detected (NOT DETECT) 03/04/23 20:30 C. pneumoniae DNA (PCR) Not detected (NOT DETECT) 03/04/23 20:30 Coronavirus 229E (PCR) Not detected (NOT DETECT) 03/04/23 20:30 Human Metapneumovir PCR Not detected (NOT DETECT) 03/04/23 20:30 Influenza A (H1) PCR Not detected (NOT DETECT) 03/04/23 20:30 Influenza A (H3) PCR Not detected (NOT DETECT) 03/04/23 20:30 Influenza Type A (PCR) Not detected (NOT DETECT) 03/04/23 20: Influenza Type B (PCR) Not detected (NOT DETECT) 03/04/23 20:30 M. pneumoniae (PCR) Not detected (NOT DETECT) 03/04/23 20:30 Parainfluenza 1 (PCR) Not detected (NOT DETECT) 03/04/23 20:30 Parainfluenza 2 (PCR) Not detected (NOT DETECT) 03/04/23 20:30 Parainfluenza 3 (PCR) Not detected (NOT DETECT) 03/04/23 20:30 Parainfluenza 4 (PCR) Not detected (NOT DETECT) 03/04/23 20:30 RSV Type A (PCR) Not detected (NOT DETECT) 03/04/23 20:30 RSV Type B (PCR) Not detected (NOT DETECT) 03/04/23 20:30 Entero/Rhino (PCR) Not detected (NOT DETECT) 03/04/23 20:30 SARS-CoV-2 (PCR) Not detected (NOT DETECT) 03/04/23 20:30 Vitals Last Vital Signs Temp 97.7 F 03/11/23 11:04 Pulse 81 03/11/23 11:04 Resp 18 03/11/23 11:04 BP 134/67 03/11/23 11:04 Pulse Ox 89 L 03/11/23 11:04 O2 Del Method Room Air 03/11/23 11:04 O2 Flow Rate 2 03/11/23 10:24 FiO2 30 03/11/23 07:32 Discharge Plan Discharge Patient Disposition: Home Condition: Stable Prescriptions: New magnesium L-lactate [Magtab] 84 mg Tablet Extended Release 84 mg PO DAILY 30 Days Qty: 30 0RF doxycycline monohydrate 100 mg Tablet 100 mg PO BID 5 Days Qty: 10 0RF isosorbide mononitrate 30 mg Tablet Extended Release 24 Hr 30 mg PO DAILY 30 Days Qty: 30 0RF cefdinir 300 mg Capsule 300 mg PO BID 5 Days Qty: 10 0RF insulin aspart U-100 [Novolog FlexPen U-100 Insulin] 100 unit/mL (3 mL) insulin pen See Rx Instructions .ROUTE .COMPLEX Qty: 15 0RF Rx Instructions: Inject, subcut, 3 times daily, after meals, based on sliding scale provided carvedilol 3.125 mg Tablet 3.125 mg PO BID 30 Days Qty: 60 0RF nitroglycerin 0.4 mg Tablet, Sublingual 0.4 mg sublingual Q5M PRN (Reason: Chest Pain) 30 Days Qty: 30 0RF clopidogrel 75 mg Tablet 75 mg PO DAILY 30 Days Qty: 30 0RF furosemide 40 mg Tablet 40 mg PO BID@08,16 30 Days Qty: 60 0RF insulin glargine [Lantus Solostar U-100 Insulin] 100 unit/mL (3 mL) insulin pen 10 unit SUBCUT QAM 30 Days Qty: 15 0RF aspirin 81 mg tablet,delayed release (DR/EC) 81 mg PO DAILY 30 Days Qty: 30 0RF potassium chloride [Klor-Con M20] 20 mEq tablet,ER particles/crystals 20 meq PO BID 30 Days Qty: 60 0RF Continued buspirone 5 mg tablet 5 mg PO BID gabapentin 600 mg tablet 1,800 mg PO BID citalopram 40 mg tablet 40 mg PO DAILY metformin 1,000 mg tablet 1,000 mg PO BID pravastatin 20 mg tablet 20 mg PO BEDTIME cyclobenzaprine 5 mg tablet 5 mg PO TID PRN (Reason: Spasms) Discontinued nitroglycerin 0.4 mg tablet, sublingual See Rx Instructions .ROUTE .COMPLEX Rx Instructions: GIVE 0.4MG SUBLINGUALLY EVERY 5 MINUTES NEEDED FOR CHEST PAIN. DO NOT GIVE MORE THAN 3 TIMES PER EPISODE. Discharge Orders: Discharge Order (Routine); Ordered 03/11/23 Ordered By: Bryan Loco Other Ambulatory Orders: DME: Oxygen (Order) Location: None Selected Ordered By: Bryan Loco Referrals: Norman Santizo [Primary Care Provider] - 03/15/23 1:20 pm Patient Instructions: Heart Failure (DC), Cellulitis (GEN), Pleural Effusion (DC), CHF Stoplight, Opioid Safety, Post Heart Attack Stoplight Activity Restrictions/Additional Instructions: -If you have recurrent chest pain please come back to the emergency room code ? Take medication as prescribed, ? Please follow-up with cardiology in 1 to 2 weeks, ? Please limit your fluid intake to 1 to 2 L a day, ? Take Lasix as prescribed, ? Take antibiotics as prescribed -Lantus 10 units subcu in the morning Monitor your blood sugars 3 times daily as after meals -Please record your blood sugars, and a blood sugar log -For your NovoLog -Please inject blood sugar after meals based on sliding scale provided -Do not inject insulin if you do not eat as hypoglycemia kills -This is a NovoLog sliding scale -Insulin sliding ?fingerstick? Insulin ?141-180?0 units/sq 181-220?2 units/sq ?221-260?4 units/sq ?261-300 6 units/sq ?301-350?8 units/sq ?351-400 10 units/sq ?401-450?12 units/sq >450? 14units/sq -If your blood sugar is greater than 500 go to the emergency room -If your blood sugar is less than 60 or at anytime you feel lightheaded or dizzy or diaphoretic or have chest palpitations check your blood sugar, and eat a hard candy or drink orange juice and go immediately to the emergency room -Remember hypoglycemia kills, so if his blood sugar is less than 60 we have to increase it by taking in a sugary meal such as a hard candy or orange juice and go to the emergency room -If you have any questions please call us where here to help Discharge Attestations Time Spent in Discharge Care*: greater than 30 min Quality Metrics Clinical Quality Measures [ No reported AMI, CVA or VTE this stay] Coding Level of Care Code 96749 Total time (in minutes) for Discharge: 45 Diagnoses Elevated troponin R79.89 Congestive heart failure, unspecified HF chronicity, unspecified heart failure type I50.9 Heart failure chronicity: unspecified Heart failure type: unspecified Aortic disease I77.9 Type 2 diabetes mellitus with diabetic polyneuropathy, with long-term current use of insulin E11.42; Z79.4 Diabetes mellitus complication detail: with polyneuropathy Diabetes mellitus complication status: with neurologic complications Diabetes mellitus mcfp insulin use: with intermediate project manager use Stage 2 chronic kidney disease N18.2 Chronic kidney disease stage: stage 2 (mild)
[2023-03-11] MEDS: cefdinir 300 MG CAPSULE PO (13:07)
--- NOTE | 2023-03-11 13:51 | PC.NURSE ---
Discharge Note Patient discharged to home via POV accompanied by spouse. Discharge instructions reviewed with patient and/or hvac sales representative. Mobile pharmacy medications and/or prescriptions provided. Belongings/home medications returned.
== END 2023-03-11 15:47 | disposition home or self-care (01) | DRG 280 ==
LOC: ER 16:40 → CSU 17:03
PROVIDERS: Internal Medicine; Internal Medicine Cardiovascular Disease; Admitting Provider Family Medicine; Emergency Provider Emergency Medicine; PCP Family Medicine; Visit Provider Family Medicine
DX: I21.4 Non-ST elevation (NSTEMI) myocardial infarction (principal); I50.23 Acute on chronic systolic (congestive) heart failure; J96.01 Acute respiratory failure with hypoxia; N39.0 Urinary tract infection, site not specified; L03.116 Cellulitis of left lower limb; Z68.41 Body mass index [BMI] 40.0-44.9, adult; R04.0 Epistaxis; I70.0 Atherosclerosis of aorta; B96.20 Unspecified Escherichia coli [E. coli] as the cause of diseases classified elsewhere; E11.22 Type 2 diabetes mellitus with diabetic chronic kidney disease; E11.65 Type 2 diabetes mellitus with hyperglycemia; N18.2 Chronic kidney disease, stage 2 (mild); Z79.4 Long term (current) use of insulin; E11.42 Type 2 diabetes mellitus with diabetic polyneuropathy; E66.9 Obesity, unspecified; E11.51 Type 2 diabetes mellitus with diabetic peripheral angiopathy without gangrene; Z89.611 Acquired absence of right leg above knee; Z89.432 Acquired absence of left foot; F17.210 Nicotine dependence, cigarettes, uncomplicated
CPT/HCPCS: 36415; 36416; 36600; 51702; 71045; 76937; 78452; 80048; 80051; 80053; 80061; 80202; 81001; 81015; 82330; 82565; 82803; 82805; 82962; 83036; 83605; 83735; 83880; 84100; 84145; 84443; 84484; 84520; 85025; 85378; 85610; 85730; 86140; 87040; 87070; 87077; 87086; 87186; 87205; 87486; 87581; 87633; 93005; 93017; 93306; 93308; 93971; 94660; 94664; 94760; 96372; 96374; 96375; 96376; 99285; A9500; C9113; J0280; J0696; J1644; J1650; J1815; J1940; J2020; J2270; J2785; J3370; P9047

== ENCOUNTER → 2023-03-30 14:05 | Outpatient (BNVA) | payer SELFPAY | PROVIDERS: PCP Family Medicine; Visit Provider Nurse Practitioner Family | DX: I50.22 Chronic systolic (congestive) heart failure (principal); F17.200 Nicotine dependence, unspecified, uncomplicated | CPT/HCPCS: 99213 ==

== ENCOUNTER → 2023-04-07 07:53 | Outpatient (BNVA) | payer SELFPAY | PROVIDERS: PCP Family Medicine; Visit Provider Thoracic Surgery (Cardiothoracic Vascular Surgery) | DX: I96 Gangrene, not elsewhere classified (principal); S90.822D Blister (nonthermal), left foot, subsequent encounter; X58.XXXD Exposure to other specified factors, subsequent encounter | CPT/HCPCS: 97597; 99213; A6220 ==

== ENCOUNTER → 2023-04-14 08:51 | Outpatient (BNVA) | payer SELFPAY | PROVIDERS: PCP Family Medicine; Visit Provider Thoracic Surgery (Cardiothoracic Vascular Surgery) | DX: I96 Gangrene, not elsewhere classified (principal); S90.822D Blister (nonthermal), left foot, subsequent encounter; X58.XXXD Exposure to other specified factors, subsequent encounter | CPT/HCPCS: 97597 ==

== ENCOUNTER → 2023-04-21 13:04 | Outpatient (BNVA) | payer SELFPAY | PROVIDERS: PCP Family Medicine; Visit Provider Thoracic Surgery (Cardiothoracic Vascular Surgery) | DX: E11.52 Type 2 diabetes mellitus with diabetic peripheral angiopathy with gangrene (principal); E11.621 Type 2 diabetes mellitus with foot ulcer; L97.521 Non-pressure chronic ulcer of other part of left foot limited to breakdown of skin | CPT/HCPCS: 97597 ==

== ENCOUNTER → 2023-04-28 13:22 | Outpatient (BNVA) | payer SELFPAY | PROVIDERS: PCP Family Medicine; Visit Provider Thoracic Surgery (Cardiothoracic Vascular Surgery) | DX: E11.52 Type 2 diabetes mellitus with diabetic peripheral angiopathy with gangrene (principal); E11.621 Type 2 diabetes mellitus with foot ulcer; L97.521 Non-pressure chronic ulcer of other part of left foot limited to breakdown of skin; E11.622 Type 2 diabetes mellitus with other skin ulcer; L97.821 Non-pressure chronic ulcer of other part of left lower leg limited to breakdown of skin | CPT/HCPCS: 97597; A6212 ==

== ENCOUNTER → 2023-05-05 14:31 | Outpatient (BNVA) | payer SELFPAY | PROVIDERS: PCP Family Medicine; Visit Provider Thoracic Surgery (Cardiothoracic Vascular Surgery) | DX: E11.52 Type 2 diabetes mellitus with diabetic peripheral angiopathy with gangrene (principal); E11.621 Type 2 diabetes mellitus with foot ulcer; L97.521 Non-pressure chronic ulcer of other part of left foot limited to breakdown of skin; E11.622 Type 2 diabetes mellitus with other skin ulcer; L97.822 Non-pressure chronic ulcer of other part of left lower leg with fat layer exposed | CPT/HCPCS: 11042; 97597; A6212 ==

== ENCOUNTER → 2023-05-12 14:58 | Outpatient (BNVA) | payer SELFPAY | PROVIDERS: PCP Family Medicine; Visit Provider Thoracic Surgery (Cardiothoracic Vascular Surgery) | DX: E11.52 Type 2 diabetes mellitus with diabetic peripheral angiopathy with gangrene (principal); E11.621 Type 2 diabetes mellitus with foot ulcer; L97.522 Non-pressure chronic ulcer of other part of left foot with fat layer exposed; E11.622 Type 2 diabetes mellitus with other skin ulcer; L97.821 Non-pressure chronic ulcer of other part of left lower leg limited to breakdown of skin; Z09 Encounter for follow-up examination after completed treatment for conditions other than malignant neoplasm | CPT/HCPCS: 97597 ==

== ENCOUNTER → 2023-05-19 13:35 | Outpatient (BNVA) | payer SELFPAY | PROVIDERS: PCP Family Medicine; Visit Provider Thoracic Surgery (Cardiothoracic Vascular Surgery) | DX: E11.621 Type 2 diabetes mellitus with foot ulcer (principal); E11.52 Type 2 diabetes mellitus with diabetic peripheral angiopathy with gangrene; L97.422 Non-pressure chronic ulcer of left heel and midfoot with fat layer exposed; L97.529 Non-pressure chronic ulcer of other part of left foot with unspecified severity; Z89.432 Acquired absence of left foot | CPT/HCPCS: 11042; 73630; 87070; 87077; 87176; 87186; 87205 ==

== ENCOUNTER 2023-05-19 16:31 | Outpatient (CLI) | payer SELFPAY ==
--- NOTE | 2023-05-19 16:36 | XR_ITS ---
WS: [id number] Left foot, 3 views, 05/19/2023 Clinical Data: non-healing ulcer; rule out osteo; DFU Comparison: None. Findings: There is a forefoot amputation with the bases of the left first through fifth metatarsals remaining. There is anterior soft tissue swelling over the bases of the metatarsals. There is diffuse bony demin eralization of the remainder of the bones of the foot. There is a plantar spur and an Achilles spur. Impression: 1. Amputation of distal two thirds of the left first through fifth metatarsals. 2. Diffuse demineralization of the remainder of the bones of the foot but no specific changes of oste omyelitis. 3. Soft tissue swelling over the tissue surrounding the remaining metatarsal stumps.
== END 2023-05-19 16:32 | disposition home or self-care (01) ==
LOC: RAD 16:34
PROVIDERS: PCP Family Medicine; Visit Provider Thoracic Surgery (Cardiothoracic Vascular Surgery)
DX: E11.621 Type 2 diabetes mellitus with foot ulcer (principal); L97.529 Non-pressure chronic ulcer of other part of left foot with unspecified severity; Z89.432 Acquired absence of left foot
CPT/HCPCS: 73630; 87070; 87077; 87176; 87186; 87205

== ENCOUNTER → 2023-05-24 14:14 | Outpatient (BNVA) | payer SELFPAY | PROVIDERS: PCP Family Medicine; Visit Provider Podiatrist Foot & Ankle Surgery | DX: E11.621 Type 2 diabetes mellitus with foot ulcer (principal); E11.42 Type 2 diabetes mellitus with diabetic polyneuropathy; Z79.4 Long term (current) use of insulin; N18.2 Chronic kidney disease, stage 2 (mild); L97.522 Non-pressure chronic ulcer of other part of left foot with fat layer exposed; M86.8X7 Other osteomyelitis, ankle and foot; Z79.84 Long term (current) use of oral hypoglycemic drugs | CPT/HCPCS: 99204 ==

== ENCOUNTER → 2023-05-26 14:25 | Outpatient (BNVA) | payer SELFPAY | PROVIDERS: PCP Family Medicine; Visit Provider Thoracic Surgery (Cardiothoracic Vascular Surgery) | DX: E11.52 Type 2 diabetes mellitus with diabetic peripheral angiopathy with gangrene (principal); E11.621 Type 2 diabetes mellitus with foot ulcer; L97.422 Non-pressure chronic ulcer of left heel and midfoot with fat layer exposed | CPT/HCPCS: 11044; 87070; 87176; 87205 ==

== ENCOUNTER 2023-06-02 07:35 | Day surgery (SDC) | payer SELFPAY ==
[2023-06-02 07:57] VITALS: BP 141/73; PULSE 72; RESP 16; TEMP 36.1; O2SAT 99
[2023-06-02] MEDS: sodium chloride 0.9% 1,000 ML 30 ML IV (08:11)
[2023-06-02] MEDS: acetaminophen 1,000 MG/100 ML PIGGYBACK 400 MG IV (08:12)
[2023-06-02 08:20] LABS: Glucose Point of Care 472 mg/dL (70-110)
--- NOTE | 2023-06-02 08:20 | ANES.PREANE2 ---
Pre-Anesthetic Assessment Height/Weight: Height 1.68 m Weight 108.862 kg Temp Pulse Resp BP Pulse Ox O2 Del Method 97 F L 72 16 141/73 99 Room Air 06/02/23 07:57 06/02/23 07:57 06/02/23 07:57 06/02/23 07:57 06/02/23 07:57 06/02/23 07:57 Preop Diagnosis: Osteomyelitis Operation Date: 06/02/23 09:20 Proposed Procedures p Incision And Drainage Incision of Bone Cortex(Left) - Carlo Comer DPM Familial anesthetic complications: None Was Beta Nazario taken within 24 hours: N/A Was Clonidine taken within 24 hours: N/A Last intake: Intake Last Liquid Date 06/01/23 Last Liquid Time 22:00 Last Solid Date 06/01/23 Last Solid Time 22:00 Social Tobacco and No alcohol Exam alert, oriented x 3, clear to auscultation bilaterally and regular rate & rhythm Airway Mallampati: Class IV Dentition: chipped Pulmonary Chronic Obstructive Pulmonary Disease 2 L NC CV/HEM Congestive Heart Failure, Hypertension and Myocardial Infarction Ef 48%, improved from 24% Chronic Renal Insufficiency Metabolic Diabetes Mellitus, Hyperlipidemia and Morbid Obesity Anesthetic Plan ASA status: 4 Anesthesia: MAC Risk of > 500 ml blood loss (7ml/kg in children): No Other Pertinent Information Insulin for elevated BG Medications/Allergies Home Medications Medication Instructions Recorded Confirmed Last Taken Type buspirone 5 mg tablet 5 mg PO BID 03/04/23 06/02/23 06/01/23 History citalopram 40 mg tablet 40 mg PO DAILY 03/04/23 06/02/23 06/01/23 History cyclobenzaprine 5 mg tablet 5 mg PO TID PRN Spasms 03/04/23 06/02/23 06/01/23 History gabapentin 600 mg tablet 1,800 mg PO BID 03/04/23 06/02/23 06/01/23 History metformin 1,000 mg tablet 1,000 mg PO BID 03/04/23 06/02/23 06/01/23 History am dose pravastatin 20 mg tablet 20 mg PO BEDTIME 03/04/23 06/02/23 06/01/23 History insulin aspart U-100 100 unit/mL See Rx Instructions .Route 03/11/23 06/01/23 06/01/23 Rx (3 mL) subcutaneous pen (Novolog .COMPLEX #15 mL FlexPen U-100 Insulin aspart) lisinopril 10 mg tablet 10 mg PO DAILY 03/30/23 06/01/23 06/01/23 History amoxicillin 500 mg-potassium 1 tab PO BID #14 tabs 05/26/23 06/02/23 06/01/23 Rx clavulanate 125 mg tablet (Augmentin) Allergies Allergy/AdvReac Type Severity Reaction Status Date / Time adhesive Allergy ALGY-Rash Verified 05/24/23 14:19 Sulfa (Sulfonamide Allergy ALGY-Anaphy Verified 05/24/23 14:19 Antibiotics) laxis Current Medications Generic Name Dose Route Start Last Admin Trade Name Freq PRN Reason Stop Dose Admin Sodium Chloride 1,000 mls @ 30 mls/hr 06/02/23 07:45 06/02/23 08:11 Sodium Chloride 0.9% IV 06/03/23 07:44 30 mls/hr .Q24H RENATO Administration PFSH Anesthesia Medical History (Updated 05/28/23 @ 20:43 by Carlo Comer DPM) Peripheral vascular disease Amputation above knee Above knee amputation of right lower extremity Type 2 diabetes mellitus Surgical History (Updated 03/04/23 @ 17:21 by Bryan Loco MD) History of right above knee amputation History of amputation Family History (Updated 03/04/23 @ 17:21 by Bryan Loco MD) Father CAD (coronary artery disease) Cardiomyopathy Social History (Updated 03/04/23 @ 17:21 by Bryan Loco MD) Smoking and tobacco/nicotine status: current some day tobacco/nicotine user Alcohol intake: never Substance/Drug Use: never Data Anesthesia Cardiac Studies: Echocardiogram 03/05/23 Echocardiogram Limited Views 03/11/23 Sestamibi Stress Test (Cardiology) 03/09/23
[2023-06-02] MEDS: insulin regular-human 100 units/1 mL 10 UNIT IVP ×2 (08:28→09:12)
[2023-06-02 08:57] LABS: Glucose Point of Care 449 mg/dL (70-110)
[2023-06-02 09:41] LABS: Glucose Point of Care 414 mg/dL (70-110)
[2023-06-02] MEDS: insulin regular-human 100 units/1 mL 20 UNIT IVP (09:53)
--- NOTE | 2023-06-02 09:57 | P.HPUD_ITS ---
Surgery/Procedure H&P Update DATE OF PROCEDURE: June 02, 2023 DATE H&P PERFORMED: 05/24/23 H&P UPDATE INFORMATION: I have reviewed H&P completed within last 30 days, I have examined patient prior to procedure, No changes to prior documentation and H&P is in [facility] [place] EMR on date indicated PREOP DIAGNOSIS: Osteomyelitis PLANNED PROCEDURE: Operation Date: 06/02/23 09:20 Proposed Procedures p Incision And Drainage Incision of Bone Cortex(Left) - Carlo Comer DPM
[2023-06-02] MEDS: ceFAZolin 2,000 MG in sodium chloride 0.9% (plus) 50 ML 100 MG IV (10:10)
[2023-06-02] MEDS: BUPivacaine 0.5% INJ 30 mL 15 ML INJECTION (10:43)
--- NOTE | 2023-06-02 10:53 | W.PM.BPON ---
Date of procedure: 06/02/2023 Surgeon name: Dr. Carlo Comer D.P.M. Treatment Supervisor(s) name(s): José Miguel Shelby Procedure(s) performed: Incision bone cortex left foot Description of findings: Osteomyelitis fifth metatarsal Estimated blood loss: 5 cc Tourniquet time: 22 minutes Specimen(s) removed: Fifth metatarsal left foot cultures aerobic and anaerobic deep tissue left foot Post-operative diagnosis: Osteomyelitis left foot fifth metatarsal
--- NOTE | 2023-06-02 10:54 | PM.OP ---
Operative Report Date of procedure: June 02, 2023 Pre-op diagnosis: Osteomyelitis left foot fifth metatarsal Post-op diagnosis: Same Post-op findings: Residual fifth metatarsal base appeared healthy and viable with peroneus brevis attachment preserved Procedure done: Incision bone cortex left foot fifth metatarsal CPT 10198 Implants: None Specimens removed/disposition: Cultures aerobic and anaerobic of deep tissue left foot Pathology: Fifth metatarsal fragment sent to pathology as surgical specimen Surgeon: Carlo Comer DPM Mission Systems Engineer: Heron Valdez Estimated blood loss: 5 cc 22 minutes Complications: None Findings: See above Procedure: Patient is a 57-year-old female that has a history of osteomyelitis left foot fifth metatarsal with chronic ulceration to plantar aspect of left foot fifth metatarsal.. The patient has had the aforementioned chief complaint for some time. Conservative treatment measures have been attempted and the patient has opted for surgical intervention at this time. A lengthy discussion regarding the procedure, including risks and complications has been had with the patient and is noted in the recent clinic note. Written and verbal consent have been obtained. All patient questions have been answered to the patient?s satisfaction. No written or verbal guarantees have been given or implied. The patient has been NPO since midnight. The history has been reviewed and the history and physical is current. The signed consent was confirmed and placed in the patient chart. Patient imaging has been reviewed and is consistent with the diagnosis. Under mild sedation, the patient was brought into the operating room and placed on the table in the supine position. IV antibiotics were given by the anesthesia team as preoperative surgical prophylaxis. IV sedation was then performed by the anesthesiateam. A local field block was performed using 0.5% Marcaine plain. A pneumatic tourniquet was then placed about the left ankle. The operative extremity was then prepped and draped in the usual fashion. The extremity was then elevated before the tourniquet was inflated to 250 mmHg. After inflation, the following procedure was then performed. Attention was directed to the left foot where a full-thickness ulceration was noted to the plantar aspect of the left foot fifth metatarsal. This had positive probe to bone with malodor and fibrotic tissue. A #15 blade was used to make a 5 cm incision on the dorsal aspect of the fifth metatarsal. Dissection was carried down to the remnants of the fifth metatarsal shaft. An osteotome and mallet were used to resect the distal portion of the fifth metatarsal. This was passed from the operative field to be sent as surgical specimen. The remaining fifth metatarsal base appeared healthy and viable. The attachment of the peroneus brevis tendon remained preserved. Cultures aerobic and anaerobic were taken at this point. There was noted to be a small amount of purulence in the area. Fibrotic portion of the wound bed was debrided with a rongeur. The site was then irrigated with copious amounts of sterile saline via cystoscopy tubing. Tourniquet was let down and good hyperemic response was noted to the surgical site. Hemostasis was achieved. The skin edges were then reapproximated using 3-0 nylon in simple interrupted fashion. The incision site was then dressed with Xeroform, 4 x 4 gauze, Kerlix, Justin. The patient tolerated the procedure and anesthesia well and without complication. The patient was transported from the operating room to the recovery room with vital signs stable and vascular status intact to the left foot. The patient was given both written and verbal instructions to remain nonweightbearing to the operative extremity, to keep dressings/splint clean, dry and intact and to take pain medication as directed. The patient will follow-up in the outpatient setting at their scheduled appointment. The patient was discharged with my personal number and was instructed to call if any questions or issues should arise. They were discharged home once anesthesia criteria was met.
[2023-06-02 10:55] VITALS: BP 96/53; PULSE 78; RESP 20; TEMP 36.7; O2SAT 99
[2023-06-02 11:00] VITALS: BP 109/54; PULSE 77; RESP 16; O2SAT 100
[2023-06-02 11:05] VITALS: BP 129/38; PULSE 77; RESP 18; O2SAT 99
[2023-06-02 11:10] VITALS: BP 123/50; PULSE 75; RESP 18; TEMP 36.7; O2SAT 98
[2023-06-02 11:15] VITALS: BP 138/60; PULSE 71; RESP 16; TEMP 36.7; O2SAT 98
[2023-06-02 11:31] LABS: Glucose Point of Care 275 mg/dL (70-110)
--- NOTE | 2023-06-02 11:45 | ANE.PACU2 ---
Inpatient post-anesthesia follow up: Airway intact: Yes Vital signs: Temperature 98.1 F Pulse Rate 71 Respiratory Rate 16 Blood Pressure 138/60 Pulse Oximetry 98 Oxygen Delivery Me thod Room Air Oxygen Flow Rate 8 Fraction of Inspir ed Oxygen Hydration adequate: Yes Nausea and vomiting: No Pain level: 1 Mental status: Baseline
== END 2023-06-02 11:45 | disposition home or self-care (01) ==
PROVIDERS: Family Provider Thoracic Surgery (Cardiothoracic Vascular Surgery); PCP Family Medicine; Visit Provider Podiatrist Foot & Ankle Surgery
PROC: (CPT 28005; principal; 2023-06-02 09:10)
DX: M86.8X7 Other osteomyelitis, ankle and foot (principal); J44.9 Chronic obstructive pulmonary disease, unspecified; Z99.81 Dependence on supplemental oxygen; I11.0 Hypertensive heart disease with heart failure; I50.9 Heart failure, unspecified; I25.2 Old myocardial infarction; E11.9 Type 2 diabetes mellitus without complications; E78.5 Hyperlipidemia, unspecified; E66.01 Morbid (severe) obesity due to excess calories; Z68.38 Body mass index [BMI] 38.0-38.9, adult; Z79.4 Long term (current) use of insulin
CPT/HCPCS: 28005; 36416; 82962; 87070; 87075; 87077; 87176; 87186; 87205; 88307; 88311; J0131; J0690; J1815; J2704; J3010; J3490; J7030

== ENCOUNTER → 2023-06-04 08:12 | Outpatient (BNVA) | payer SELFPAY | PROVIDERS: Family Provider Thoracic Surgery (Cardiothoracic Vascular Surgery); PCP Family Medicine; Visit Provider Thoracic Surgery (Cardiothoracic Vascular Surgery) | DX: E11.52 Type 2 diabetes mellitus with diabetic peripheral angiopathy with gangrene (principal); E11.621 Type 2 diabetes mellitus with foot ulcer; L97.422 Non-pressure chronic ulcer of left heel and midfoot with fat layer exposed | CPT/HCPCS: 11042 ==

== ENCOUNTER → 2023-06-17 13:13 | Outpatient (BNVA) | payer MEDICARE, SELFPAY | PROVIDERS: Family Provider Thoracic Surgery (Cardiothoracic Vascular Surgery); PCP Family Medicine; Visit Provider Thoracic Surgery (Cardiothoracic Vascular Surgery) | DX: E11.621 Type 2 diabetes mellitus with foot ulcer (principal); E11.52 Type 2 diabetes mellitus with diabetic peripheral angiopathy with gangrene; L97.422 Non-pressure chronic ulcer of left heel and midfoot with fat layer exposed; T81.31XD Disruption of external operation (surgical) wound, not elsewhere classified, subsequent encounter; Y83.8 Other surgical procedures as the cause of abnormal reaction of the patient, or of later complication, without mention of misadventure at the time of the procedure | CPT/HCPCS: 11042; 11044; 87070; 87077; 87176; 87186; 87205 ==

== ENCOUNTER 2023-06-18 11:34 | Outpatient (CLI) | payer MEDICARE, SELFPAY ==
[2023-06-18 12:05] LABS: Basophils # 0.1 10^3/uL (0.0-0.1); Basophils % 0.6 %; Eosinophils # 0.1 10^3/uL (0.0-0.8); Eosinophils % 1.6 %; Lymphocytes # 1.6 10^3/uL (0.8-4.8); Lymphocytes % 17.7 %; Mean Corpuscular HGB Conc 32.2 g/dL (30-55); Mean Corpuscular Hemoglobin 29.2 pg (27-33); Mean Corpuscular Volume 90.7 fl (85-98); Mean Platelet Volume 10.5 fL (7.4-10.4); Monocytes # 0.5 10^3/uL (0.2-0.9); Monocytes % 5.4 %; Neutrophils # 6.46 10^3/uL (1.8-7.7); Neutrophils % 73.7 %; Nucleated Red Blood Cells % 0 %; Platelet Count 188 10^3/cmm (157-399); Red Blood Count 3.53 10^6/uL (3.85-5.65); Red Cell Distribution Width 15.4 % (12.1-15.1); White Blood Count 8.76 10^3/uL (3.29-11.43)
[2023-06-18 12:24] LABS: Alanine Aminotransferase 6 U/L (0-33); Albumin Level 3.6 g/dL (3.5-5.2); Alkaline Phosphatase 121 U/L (35-105); Anion Gap 20.4 (5-19); Aspartate Amino Transferase 11 U/L (0-32); Blood Urea Nitrogen 20 mg/dL (6-20); Calcium 8.8 mg/dL (8.5-10.5); Carbon Dioxide 24 mmol/L (22-29); Chloride 93 mmol/L (98-107); Globulin 3.4 g/dL (1.3-4.6); Glomerular Filtration Rate 35.8 mL/min (90-130); Glucose 471 mg/dL (65-115); Osmolality Calculated 299 mOsm/kg (285-295); Potassium 4.4 mmol/L (3.5-5.1); Prealbumin 20.9 mg/dL (20-40); Sodium 133 mmol/L (136-145); Total Bilirubin 0.3 mg/dL (0.15-1.2)
[2023-06-18 12:29] LABS: Estmated Average Glucose 266; Hemoglobin A1C 10.9 % (4.0-6.0)
== END 2023-06-18 11:35 | disposition home or self-care (01) ==
PROVIDERS: PCP Family Medicine; Visit Provider Thoracic Surgery (Cardiothoracic Vascular Surgery)
DX: E11.42 Type 2 diabetes mellitus with diabetic polyneuropathy (principal); M86.9 Osteomyelitis, unspecified; Z79.4 Long term (current) use of insulin
CPT/HCPCS: 36415; 80053; 83036; 84134; 85025; 99211; 99213

== ENCOUNTER → 2023-06-24 14:35 | Outpatient (BNVA) | payer MEDICARE, SELFPAY | PROVIDERS: PCP Family Medicine; Visit Provider Thoracic Surgery (Cardiothoracic Vascular Surgery) | DX: E11.52 Type 2 diabetes mellitus with diabetic peripheral angiopathy with gangrene (principal); E11.621 Type 2 diabetes mellitus with foot ulcer; L97.421 Non-pressure chronic ulcer of left heel and midfoot limited to breakdown of skin; T81.31XD Disruption of external operation (surgical) wound, not elsewhere classified, subsequent encounter; Y83.8 Other surgical procedures as the cause of abnormal reaction of the patient, or of later complication, without mention of misadventure at the time of the procedure | CPT/HCPCS: 11042; 97597 ==

== ENCOUNTER → 2023-06-29 14:03 | Outpatient (BNVA) | payer SELFPAY | PROVIDERS: PCP Family Medicine; Visit Provider Internal Medicine Cardiovascular Disease | DX: I50.9 Heart failure, unspecified (principal); I25.5 Ischemic cardiomyopathy; I42.0 Dilated cardiomyopathy; I77.9 Disorder of arteries and arterioles, unspecified; E11.42 Type 2 diabetes mellitus with diabetic polyneuropathy; Z79.4 Long term (current) use of insulin; E66.01 Morbid (severe) obesity due to excess calories; Z68.41 Body mass index [BMI] 40.0-44.9, adult; N18.2 Chronic kidney disease, stage 2 (mild); E11.51 Type 2 diabetes mellitus with diabetic peripheral angiopathy without gangrene; F17.200 Nicotine dependence, unspecified, uncomplicated | CPT/HCPCS: 99214 ==

== ENCOUNTER → 2023-07-01 14:45 | Outpatient (BNVA) | payer MEDICARE, SELFPAY | PROVIDERS: PCP Family Medicine; Visit Provider Thoracic Surgery (Cardiothoracic Vascular Surgery) | DX: E11.52 Type 2 diabetes mellitus with diabetic peripheral angiopathy with gangrene (principal); E11.621 Type 2 diabetes mellitus with foot ulcer; L97.422 Non-pressure chronic ulcer of left heel and midfoot with fat layer exposed; T81.31XD Disruption of external operation (surgical) wound, not elsewhere classified, subsequent encounter; Y83.8 Other surgical procedures as the cause of abnormal reaction of the patient, or of later complication, without mention of misadventure at the time of the procedure | CPT/HCPCS: 11042 ==

== ENCOUNTER → 2023-07-02 08:10 | Outpatient (BNVA) | payer MEDICARE, SELFPAY | PROVIDERS: PCP Family Medicine; Visit Provider Podiatrist Foot & Ankle Surgery | DX: N18.2 Chronic kidney disease, stage 2 (mild); E11.42 Type 2 diabetes mellitus with diabetic polyneuropathy; Z79.4 Long term (current) use of insulin; L97.523 Non-pressure chronic ulcer of other part of left foot with necrosis of muscle; Z98.890 Other specified postprocedural states; E11.621 Type 2 diabetes mellitus with foot ulcer; M86.8X7 Other osteomyelitis, ankle and foot; Z79.84 Long term (current) use of oral hypoglycemic drugs | CPT/HCPCS: 99213 ==

== ENCOUNTER → 2023-07-08 14:21 | Outpatient (BNVA) | payer MEDICARE, SELFPAY | PROVIDERS: PCP Family Medicine; Visit Provider Thoracic Surgery (Cardiothoracic Vascular Surgery) | DX: E11.52 Type 2 diabetes mellitus with diabetic peripheral angiopathy with gangrene (principal); E11.621 Type 2 diabetes mellitus with foot ulcer; L97.421 Non-pressure chronic ulcer of left heel and midfoot limited to breakdown of skin; T81.31XD Disruption of external operation (surgical) wound, not elsewhere classified, subsequent encounter; Y83.8 Other surgical procedures as the cause of abnormal reaction of the patient, or of later complication, without mention of misadventure at the time of the procedure | CPT/HCPCS: 11042; 97597 ==

== ENCOUNTER → 2023-07-14 12:55 | Outpatient (BNVA) | payer MEDICARE, SELFPAY | PROVIDERS: PCP Family Medicine; Visit Provider Podiatrist Foot & Ankle Surgery | DX: Z98.890 Other specified postprocedural states (principal); E11.42 Type 2 diabetes mellitus with diabetic polyneuropathy; Z79.4 Long term (current) use of insulin; N18.2 Chronic kidney disease, stage 2 (mild); L97.523 Non-pressure chronic ulcer of other part of left foot with necrosis of muscle; E11.621 Type 2 diabetes mellitus with foot ulcer; M86.8X7 Other osteomyelitis, ankle and foot | CPT/HCPCS: 99024; 99213 ==

== ENCOUNTER → 2023-07-15 14:03 | Outpatient (BNVA) | payer MEDICARE, SELFPAY | PROVIDERS: PCP Family Medicine; Visit Provider Thoracic Surgery (Cardiothoracic Vascular Surgery) | DX: E11.52 Type 2 diabetes mellitus with diabetic peripheral angiopathy with gangrene (principal); E11.621 Type 2 diabetes mellitus with foot ulcer; L97.421 Non-pressure chronic ulcer of left heel and midfoot limited to breakdown of skin; T81.31XD Disruption of external operation (surgical) wound, not elsewhere classified, subsequent encounter; Y83.8 Other surgical procedures as the cause of abnormal reaction of the patient, or of later complication, without mention of misadventure at the time of the procedure | CPT/HCPCS: 97597 ==

== ENCOUNTER → 2023-07-22 14:12 | Outpatient (BNVA) | payer MEDICARE, SELFPAY | PROVIDERS: PCP Family Medicine; Visit Provider Thoracic Surgery (Cardiothoracic Vascular Surgery) | DX: E11.52 Type 2 diabetes mellitus with diabetic peripheral angiopathy with gangrene (principal); E11.621 Type 2 diabetes mellitus with foot ulcer; L97.421 Non-pressure chronic ulcer of left heel and midfoot limited to breakdown of skin; T81.31XD Disruption of external operation (surgical) wound, not elsewhere classified, subsequent encounter; Y83.8 Other surgical procedures as the cause of abnormal reaction of the patient, or of later complication, without mention of misadventure at the time of the procedure | CPT/HCPCS: 11042; 97597 ==

== ENCOUNTER → 2023-07-29 13:44 | Outpatient (BNVA) | payer MEDICARE, SELFPAY | PROVIDERS: PCP Family Medicine; Visit Provider Thoracic Surgery (Cardiothoracic Vascular Surgery) | DX: E11.52 Type 2 diabetes mellitus with diabetic peripheral angiopathy with gangrene (principal); E11.621 Type 2 diabetes mellitus with foot ulcer; L97.421 Non-pressure chronic ulcer of left heel and midfoot limited to breakdown of skin; T81.31XD Disruption of external operation (surgical) wound, not elsewhere classified, subsequent encounter; Y83.8 Other surgical procedures as the cause of abnormal reaction of the patient, or of later complication, without mention of misadventure at the time of the procedure | CPT/HCPCS: 11042; 97597 ==

== ENCOUNTER → 2023-08-05 13:23 | Outpatient (BNVA) | payer MEDICARE, SELFPAY | PROVIDERS: PCP Family Medicine; Visit Provider Thoracic Surgery (Cardiothoracic Vascular Surgery) | DX: E11.52 Type 2 diabetes mellitus with diabetic peripheral angiopathy with gangrene (principal); E11.621 Type 2 diabetes mellitus with foot ulcer; L97.421 Non-pressure chronic ulcer of left heel and midfoot limited to breakdown of skin; T81.31XD Disruption of external operation (surgical) wound, not elsewhere classified, subsequent encounter; Y83.8 Other surgical procedures as the cause of abnormal reaction of the patient, or of later complication, without mention of misadventure at the time of the procedure | CPT/HCPCS: 97597 ==

== ENCOUNTER → 2023-08-12 10:07 | Outpatient (BNVA) | payer MEDICARE, SELFPAY | PROVIDERS: PCP Family Medicine; Visit Provider Thoracic Surgery (Cardiothoracic Vascular Surgery) | DX: E11.52 Type 2 diabetes mellitus with diabetic peripheral angiopathy with gangrene (principal); E11.621 Type 2 diabetes mellitus with foot ulcer; L97.421 Non-pressure chronic ulcer of left heel and midfoot limited to breakdown of skin; T81.31XD Disruption of external operation (surgical) wound, not elsewhere classified, subsequent encounter; Y83.8 Other surgical procedures as the cause of abnormal reaction of the patient, or of later complication, without mention of misadventure at the time of the procedure | CPT/HCPCS: 97597 ==

== ENCOUNTER → 2023-08-19 13:04 | Outpatient (BNVA) | payer MEDICARE, SELFPAY | PROVIDERS: PCP Family Medicine; Visit Provider Thoracic Surgery (Cardiothoracic Vascular Surgery) | DX: E11.52 Type 2 diabetes mellitus with diabetic peripheral angiopathy with gangrene (principal); E11.621 Type 2 diabetes mellitus with foot ulcer; L97.421 Non-pressure chronic ulcer of left heel and midfoot limited to breakdown of skin; M86.171 Other acute osteomyelitis, right ankle and foot | CPT/HCPCS: 97597 ==

== ENCOUNTER → 2023-08-26 13:30 | Outpatient (BNVA) | payer MEDICARE, SELFPAY | PROVIDERS: PCP Family Medicine; Visit Provider Thoracic Surgery (Cardiothoracic Vascular Surgery) | DX: Z09 Encounter for follow-up examination after completed treatment for conditions other than malignant neoplasm (principal); Z87.2 Personal history of diseases of the skin and subcutaneous tissue | CPT/HCPCS: 99212 ==